=== PATIENT | male | born 1950 | race Caucasian/White ===

== ENCOUNTER 2020-08-04 17:33 | Emergency (ER) | payer MEDICARE ==
--- NOTE | 2020-08-04 17:49 | EDM.PDOC ---
<Carla Jacobs - Last Filed: 08/04/20 17:50> ED HPI GENERAL MEDICAL PROBLEM - General Chief Complaint: Cardiovascular Problem Stated Complaint: MEDICAL VIA [facility] Time Seen by Provider: 08/04/20 17:44 Source of Information: Reports: Patient History Limitations: Reports: No Limitations - History of Present Illness INITIAL COMMENTS - FREE TEXT/NARRATIVE: pt has a history of muscular dystrophy. He is wheel chair bound. He was sitting outside and he suddenly developed a flutterin his chest. When EMS arrived this fluttering had moved to chest pain. He thinks he had chest pain for about 1/2 hour. He states he refuses to take asa. He has had previous heart attacks. He hasd not had a rapid rhythm during this time. Onset: Today, Sudden Duration: Hour(s): Location: Reports: Chest, Other ( this moved from fluttering to chest pain. He is feeling good at this time. He does not have pain. ) Associated Symptoms: Reports: Chest Pain, Shortness of Breath Chest Pain Score (Numeric/FACES): 7 - Related Data Allergies Allergy/AdvReac Type Severity Reaction Status Date / Time Sulfa (Sulfonamide Allergy Cannot Verified 08/04/20 19:10 Antibiotics) Remember Home Meds: Home Meds Cetirizine HCl [Zyrtec] 10 mg PO DAILY 08/04/20 [History] Cimetidine 300 mg PO BEDTIME 08/04/20 [History] Clopidogrel [Plavix] 75 mg PO DAILY 08/04/20 [History] Gabapentin [Neurontin] 2 tab PO TID 08/04/20 [History] Metoprolol Tartrate 25 mg PO BID 08/04/20 [History] Pantoprazole Sodium [Protonix] 40 mg PO ACBREAKFAST 08/04/20 [History] atorvaSTATin Calcium [Lipitor] 20 mg PO BEDTIME 08/04/20 [History] lisinopriL [Lisinopril] 1 tab PO DAILY 08/04/20 [History] ED ROS GENERAL - Review of Systems Review Of Systems: See Below Constitutional: Reports: No Symptoms HEENT: Reports: No Symptoms Respiratory: Reports: Shortness of Breath Cardiovascular: Reports: Chest Pain Endocrine: Reports: No Symptoms GI/Abdominal: Reports: No Symptoms : Reports: No Symptoms Musculoskeletal: Reports: No Symptoms Skin: Reports: No Symptoms ED EXAM, GENERAL - Physical Exam Exam: See Below Free Text/Narrative:: on arrival pt states that he has very little pain at this point. He did develop a fluttery sensation in the chest and then this moved to pain. He was not given any meds in the ambulance. He has had previous MIs Exam Limited By: No Limitations General Appearance: Alert, No Apparent Distress, Anxious, Other (pt was comfortable on arrival and he refused asa. ) Ears: Normal TMs Nose: Normal Inspection Throat/Mouth: Normal Inspection Head: Atraumatic Neck: Normal Inspection Respiratory/Chest: No Respiratory Distress Cardiovascular: Regular Rate, Rhythm GI/Abdominal: Soft, Non-Tender (Male) Exam: Deferred Rectal (Males) Exam: Deferred Back Exam: Normal Inspection Extremities: Other (pt has uscular dystrophy and he walks very little. ) Neurological: Alert, Oriented Psychiatric: Anxious Departure - Departure Disposition: Home, Self-Care 01 Clinical Impression: Angina at rest Instructions: Angina, [id number] Referrals: PCP,None [Primary Care Provider] - Forms: ED Department Discharge Care Plan Goals: Continue your current medications, and use nitroglycerin if chest pain recurs. Consider returning if chest pain is persistent despite treatment. Sepsis Event Note (ED) - Evaluation Sepsis Screening Result: No Definite Risk <Carlo Silva - Last Filed: 08/04/20 21:11> Course - Vital Signs Last Recorded V/S: Last Vital Signs Temp 97.9 F 08/04/20 17:34 Pulse 69 08/04/20 17:34 Resp 18 08/04/20 17:34 BP 132/84 08/04/20 17:34 Pulse Ox 95 08/04/20 17:34 - Orders/Labs/Meds Orders: Active Orders 24 hr Category Date Time Status Chest 1V Frontal [CR] Stat Exams 08/04/20 18:04 Taken EKG 12 Lead [EK] Routine Ther 08/04/20 17:34 Ordered Labs: Laboratory Tests 08/04/20 08/04/20 08/04/20 Range/Units 17:45 17:45 17:45 WBC 8.8 (4.5-11.0) K/uL RBC 4.44 (4.30-5.90) M/uL Hgb 13.4 (12.0-15.0) g/dL Hct 41.5 (40.0-54.0) % MCV 94 (80-98) fL MCH 30 (27-31) pg MCHC 32 (32-36) % Plt Count 206 (150-400) K/uL Neut % (Auto) 42 (36-66) % Lymph % (Auto) 39 (24-44) % [place] % (Auto) 12 H (2-6) % Eos % (Auto) 6 H (2-4) % Baso % (Auto) 2 H (0-1) % Sodium 142 (140-148) mmol/L Potassium 3.4 L (3.6-5.2) mmol/L Chloride 106 (100-108) mmol/L Carbon Dioxide 25 (21-32) mmol/L Anion Gap 14.4 H (5.0-14.0) mmol/L BUN 14 (7-18) mg/dL Creatinine 2.2 H (0.8-1.3) mg/dL Est Cr Clr Drug Dosing 32.40 mL/min Estimated GFR (MDRD) 30 L (>60) Glucose 115 H (74-106) mg/dL Calcium 8.8 (8.5-10.1) mg/dL Total Bilirubin 0.6 (0.2-1.0) mg/dL AST 23 (15-37) U/L ALT 20 (12-78) U/L Alkaline Phosphatase 82 (46-116) U/L Troponin I < 0.017 (0.000-0.056) ng/mL Total Protein 7.1 (6.4-8.2) g/dL Albumin 3.3 L (3.4-5.0) g/dL Globulin 3.8 H (2.3-3.5) g/dL Albumin/Globulin Ratio 0.9 L (1.2-2.2) - Re-Assessments/Exams Free Text/Narrative Re-Assessment/Exam: 08/04/20 18:57 Patient initially seen and evaluated by Dr. Jacobs. EKG showed no acute findings, troponin was 0 and patient had no symptoms while in the emergency room. He has been told by cardiology that he is not a surgical candidate and needs to be treated medically, however he is moving and could not find his nitroglycerin. 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 Departure - Departure Time of Disposition: 20:03 Sepsis Event Note (ED) - Focused Exam Vital Signs: Vital Signs Temp Pulse Resp BP Pulse Ox 08/04/20 17:34 97.9 F 69 18 132/84 95
--- NOTE | 2020-08-07 09:23 | CR ---
CHEST: Portable 08/04/2020 at 6:28 PM CLINICAL HISTORY:SOB COMPARISON:None FINDINGS: Lungs are emphysematous. The heart size, pulmonary vascularity and hilar structures are normal. No infiltrate effusion or pneumothorax is seen. There are atherosclerotic changes in the aorta. IMPRESSION: No acute cardiopulmonary process. Emphysematous changes
== END 2020-08-04 19:55 | disposition home or self-care (01) ==
LOC: JP.ED 17:33
DX: I20.9 Angina pectoris, unspecified (principal); G71.00 Muscular dystrophy, unspecified; Z88.2 Allergy status to sulfonamides; Z79.02 Long term (current) use of antithrombotics/antiplatelets; Z79.899 Other long term (current) drug therapy
CPT/HCPCS: 36415; 71045; 71045-26; 80053; 84484; 85025; 93005; 99285-25

== ENCOUNTER 2021-02-26 13:49 | Emergency (ER) | payer MEDICARE ==
[2021-02-26] MEDS ORDERED: Acetaminophen 325 MG Tab PO PRN (15:01)
--- NOTE | 2021-02-26 15:04 | EDM.PDOC ---
ED HPI GENERAL MEDICAL PROBLEM - General Chief Complaint: Respiratory Problem Stated Complaint: TROUBLE BREATHING Time Seen by Provider: 02/26/21 15:00 Source of Information: Reports: Patient, RN Notes Reviewed History Limitations: Reports: No Limitations - History of Present Illness INITIAL COMMENTS - FREE TEXT/NARRATIVE: 70-year-old gentleman presents emergency department with a complaint of shortness of breath and body aches with fever, he states his been ill for 2 days, he does have a known history of muscular dystrophy as well he is wheelchair-bound. He has not received his Covid vaccine has declined lungs Pain Score (Numeric/FACES): 3 - Related Data Allergies Allergy/AdvReac Type Severity Reaction Status Date / Time Sulfa (Sulfonamide Allergy Cannot Verified 02/26/21 14:42 Antibiotics) Remember Home Meds: Home Meds Cetirizine HCl [Zyrtec] 10 mg PO DAILY 08/04/20 [History] Cimetidine 300 mg PO BEDTIME 08/04/20 [History] Clopidogrel [Plavix] 75 mg PO DAILY 08/04/20 [History] Gabapentin [Neurontin] 2 tab PO TID 08/04/20 [History] Metoprolol Tartrate 25 mg PO BID 08/04/20 [History] Pantoprazole Sodium [Protonix] 40 mg PO ACBREAKFAST 08/04/20 [History] atorvaSTATin Calcium [Lipitor] 20 mg PO BEDTIME 08/04/20 [History] lisinopriL [Lisinopril] 1 tab PO DAILY 08/04/20 [History] Cefdinir 300 mg PO BID #14 capsule 02/26/21 [Rx] Past Medical History Cardiovascular History: Reports: CAD, Hypertension, NM Respiratory History: Reports: COPD Musculoskeletal History: Reports: Osteoarthritis Neurological History: Reports: Head Trauma, Other (See Below) Other Neuro History: muscular dystrophy - Past Surgical History Head Surgeries/Procedures: Reports: None Cardiovascular Surgical History: Reports: None Neurological Surgical History: Reports: None Musculoskeletal Surgical History: Reports: None Social & Family History - Family History Family Medical History: No Pertinent Family History - Tobacco Use Tobacco Use Status *Q: Current Every Day Tobacco User Years of Tobacco use: 50 Packs/Tins Daily: 1 - Caffeine Use Caffeine Use: Reports: Coffee - Recreational Drug Use Recreational Drug Use: No ED ROS GENERAL - Review of Systems Review Of Systems: See Below Constitutional: Reports: Fever, Chills, Weakness, Other HEENT: Reports: No Symptoms (Body aches) Respiratory: Reports: Shortness of Breath Cardiovascular: Denies: Chest Pain GI/Abdominal: Reports: No Symptoms : Reports: No Symptoms Musculoskeletal: Reports: Muscle Pain ED EXAM, GENERAL - Physical Exam Exam: See Below Exam Limited By: No Limitations General Appearance: Alert, Mild Distress Respiratory/Chest: No Respiratory Distress, Lungs Clear, Normal Breath Sounds, No Accessory Muscle Use, Chest Non-Tender Cardiovascular: Regular Rate, Rhythm, Systolic Murmur GI/Abdominal: Soft, Non-Tender #1 Interpretation EKG Date: 02/26/21 Rhythm: NSR [place]: Normal P-Wave: Present QRS: Normal ST-T: Normal QT: Normal Comparison: No Change Course - Orders/Labs/Meds Orders: Active Orders 24 hr Category Date Time Status EKG Documentation Completion [RC] ASDIRECTED Care 02/26/21 15:02 Active Nurse Communication: Isolation [RC] ASDIRECTED Care 02/26/21 15:02 Active Chest 1V Frontal [CR] Stat Exams 02/26/21 15:02 Taken CULTURE URINE [RM] Urgent Lab 02/26/21 17:22 Ordered Acetaminophen [TylenoL] Med 02/26/21 15:01 Active 650 mg PO Q4H PRN Isolation [COMM] Stat Oth 02/26/21 15:01 Ordered EKG 12 Lead [EK] Stat Ther 02/26/21 15:02 Ordered Medication Orders Acetaminophen (Acetaminophen 325 Mg Tab) 650 mg PO Q4H PRN PRN Reason: Fever Greater Than 101 Last Admin: 02/26/21 15:14 Dose: 650 mg Documented by: HELEN Labs: Laboratory Tests 02/26/21 02/26/21 02/26/21 Range/Units 15:15 15:15 15:15 WBC 15.3 H (4.5-11.0) K/uL RBC 4.71 (4.30-5.90) M/uL Hgb 14.5 (12.0-15.0) g/dL Hct 44.2 (40.0-54.0) % MCV 94 (80-98) fL MCH 31 (27-31) pg MCHC 33 (32-36) % Plt Count 217 (150-400) K/uL Neut % (Auto) 82 H (36-66) % Lymph % (Auto) 8 L (24-44) % [place] % (Auto) 9 H (2-6) % Eos % (Auto) 1 L (2-4) % Baso % (Auto) 0 (0-1) % Sodium 144 (140-148) mmol/L Potassium 4.0 (3.6-5.2) mmol/L Chloride 106 (100-108) mmol/L Carbon Dioxide 25 (21-32) mmol/L Anion Gap 13.4 (5.0-14.0) mmol/L BUN 19 H (7-18) mg/dL Creatinine 2.2 H (0.8-1.3) mg/dL Est Cr Clr Drug Dosing TNP Estimated GFR (MDRD) 30 L (>60) Glucose 119 H (74-106) mg/dL Lactic Acid 1.9 (0.4-2.0) mmol/L Calcium 8.7 (8.5-10.1) mg/dL Total Bilirubin 0.8 (0.2-1.0) mg/dL Direct Bilirubin 0.22 H (0.0-0.2) mg/dL Indirect Bilirubin 0.58 AST 13 L (15-37) U/L ALT 15 (12-78) U/L Alkaline Phosphatase 113 (46-116) U/L Troponin I < 0.017 (0.000-0.056) ng/mL C-Reactive Protein 4.87 H (0.0-0.3) mg/dL Total Protein 7.6 (6.4-8.2) g/dL Albumin 3.2 L (3.4-5.0) g/dL Globulin 4.4 H (2.3-3.5) g/dL Albumin/Globulin Ratio 0.7 L (1.2-2.2) Procalcitonin ng/mL Urine Color (YELLOW) Urine Appearance (CLEAR) Urine pH (5.0-8.0) Ur Specific [place] (1.008-1.030) Urine Protein (NEGATIVE) mg/dL Urine Glucose (UA) (NEGATIVE) mg/dL Urine Ketones (NEGATIVE) mg/dL Urine Occult Blood (NEGATIVE) Urine Nitrite (NEGATIVE) Urine Bilirubin (NEGATIVE) Urine Urobilinogen (0.2-1.0) EU/dL Ur Leukocyte Esterase (NEGATIVE) Urine RBC (0-5) Urine WBC (0-5) Ur Epithelial Cells Amorphous Sediment Urine Bacteria Urine Mucus Urine Other Influenza Type A RNA (NEGATIVE) RSV RNA (INAAT) (NEGATIVE) Influenza Type B RNA (NEGATIVE) SARS-CoV-2 RNA (CARMINE) (NEGATIVE) 02/26/21 02/26/21 02/26/21 Range/Units 15:15 15:44 16:54 WBC (4.5-11.0) K/uL RBC (4.30-5.90) M/uL Hgb (12.0-15.0) g/dL Hct (40.0-54.0) % MCV (80-98) fL MCH (27-31) pg MCHC (32-36) % Plt Count (150-400) K/uL Neut % (Auto) (36-66) % Lymph % (Auto) (24-44) % [place] % (Auto) (2-6) % Eos % (Auto) (2-4) % Baso % (Auto) (0-1) % Sodium (140-148) mmol/L Potassium (3.6-5.2) mmol/L Chloride (100-108) mmol/L Carbon Dioxide (21-32) mmol/L Anion Gap (5.0-14.0) mmol/L BUN (7-18) mg/dL Creatinine (0.8-1.3) mg/dL Est Cr Clr Drug Dosing Estimated GFR (MDRD) (>60) Glucose (74-106) mg/dL Lactic Acid (0.4-2.0) mmol/L Calcium (8.5-10.1) mg/dL Total Bilirubin (0.2-1.0) mg/dL Direct Bilirubin (0.0-0.2) mg/dL Indirect Bilirubin AST (15-37) U/L ALT (12-78) U/L Alkaline Phosphatase (46-116) U/L Troponin I (0.000-0.056) ng/mL C-Reactive Protein (0.0-0.3) mg/dL Total Protein (6.4-8.2) g/dL Albumin (3.4-5.0) g/dL Globulin (2.3-3.5) g/dL Albumin/Globulin Ratio (1.2-2.2) Procalcitonin 0.05 ng/mL Urine Color Yellow (YELLOW) Urine Appearance Turbid A (CLEAR) Urine pH 6.0 (5.0-8.0) Ur Specific [place] 1.025 (1.008-1.030) Urine Protein 100 H (NEGATIVE) mg/dL Urine Glucose (UA) Negative (NEGATIVE) mg/dL Urine Ketones Negative (NEGATIVE) mg/dL Urine Occult Blood Moderate H (NEGATIVE) Urine Nitrite Negative (NEGATIVE) Urine Bilirubin Negative (NEGATIVE) Urine Urobilinogen 2.0 H (0.2-1.0) EU/dL Ur Leukocyte Esterase Large H (NEGATIVE) Urine RBC 0-5 (0-5) Urine WBC Packed H (0-5) Ur Epithelial Cells Not seen Amorphous Sediment Not seen Urine Bacteria Many Urine Mucus Not seen Urine Other Influenza Type A RNA Negative (NEGATIVE) RSV RNA (INAAT) Negative (NEGATIVE) Influenza Type B RNA Negative (NEGATIVE) SARS-CoV-2 RNA (CARMINE) Negative (NEGATIVE) Meds: Medications Generic Name Dose Route Start Last Admin Trade Name Freq PRN Reason Stop Dose Admin Acetaminophen 650 mg 02/26/21 15:01 02/26/21 15:14 Acetaminophen 325 Mg Tab PO 650 mg Q4H PRN Administration Fever Greater Than 101 Discontinued Medications Generic Name Dose Route Start Last Admin Trade Name Freq PRN Reason Stop Dose Admin Ceftriaxone Sodium 1 gm/ 0 gm 02/26/21 17:18 Lidocaine HCl 2.1 ml IM 02/26/21 17:19 ONETIME ONE Departure - Departure Time of Disposition: 17:23 Disposition: Home, Self-Care 01 Condition: Fair Clinical Impression: Urinary tract infection Qualifiers: Urinary tract infection type: acute cystitis Hematuria presence: without hematuria Qualified Code(s): N30.00 - Acute cystitis without hematuria - Discharge Information Prescriptions: Cefdinir 300 mg PO BID #14 capsule Instructions: Urinary Tract Infection, Adult Referrals: Rogelio Sloan MD [Primary Care Provider] - Forms: ED Department Discharge Additional Instructions: Take full course of antibiotics, your medications have been faxed to [facility], please followup with your primary care provider in 5-7 days if not better, please call return to the emergency department with worsening of symptoms. - My Orders Last 24 Hours: My Active Orders 02/26/21 15:01 Acetaminophen [TylenoL] 650 mg PO Q4H PRN Isolation [COMM] Stat 02/26/21 15:02 EKG Documentation Completion [RC] ASDIRECTED Nurse Communication: Isolation [RC] ASDIRECTED Chest 1V Frontal [CR] Stat EKG 12 Lead [EK] Stat 02/26/21 17:22 CULTURE URINE [RM] Urgent - Assessment/Plan Last 24 Hours: My Active Orders 02/26/21 15:01 Acetaminophen [TylenoL] 650 mg PO Q4H PRN Isolation [COMM] Stat 02/26/21 15:02 EKG Documentation Completion [RC] ASDIRECTED Nurse Communication: Isolation [RC] ASDIRECTED Chest 1V Frontal [CR] Stat EKG 12 Lead [EK] Stat 02/26/21 17:22 CULTURE URINE [RM] Urgent Plan: Assessment Acuity = acute Site and laterality = urinary tract infection Etiology = probable bacterial cause Manifestations = dysuria Location of injury = Home Lab values = WBC elevated 15.3 consistent leukocytosis, creatinine elevated 2.2 consistent chronic renal failure stage G4 lactic acid normal 1.9 CRP slightly elevated 4.87 urinalysis reveals packed WBCs consistent with pyuria cultures pending Covid test was negative influenza negative RSV negative Plan I did discuss options with him including hospital admission he declined at this time therefore he is given 1 g Rocephin IM now prescription written for Ceftin 300 mg p.o. twice daily x7 days faxed to [facility] follow-up primary care 5 to 7 days if not better This note was dictated using [employer] voice recognition software please call with any questions on syntax or grammar.
[2021-02-26 16:42] LABS: CORONAVIRUS COVID-19 NAA NEGATIVE (NEGATIVE)
[2021-02-26] MEDS ORDERED: cefTRIAXone 1 GM, Lidocaine 1% 2.1 ML IM ONE ×2 (17:18)
--- NOTE | 2021-02-27 09:21 | CR ---
CHEST: 02/26/2021 at 4:59 PM CLINICAL HISTORY:SOB COMPARISON:July 2020 FINDINGS: Heart and pulmonary vascularity are normal. There are atherosclerotic changes in the aorta.. There is diffuse interstitial prominence which is increased slightly since prior study and may represent some superimposed interstitial edema or infiltrate. Lungs are generally hyperaerated. There are some pleural parenchymal scarring in both apices. There are no effusions IMPRESSION: Underlying COPD There does appear to be a slight interval increase in interstitial lung markings since prior study. Some of this may be technical but some underlying interstitial edema or pneumonitis is not excluded
== END 2021-02-26 18:30 | disposition home or self-care (01) ==
LOC: JP.ED 13:49
DX: N30.00 Acute cystitis without hematuria (principal); I25.10 Atherosclerotic heart disease of native coronary artery without angina pectoris; I10 Essential (primary) hypertension; I25.2 Old myocardial infarction; J44.9 Chronic obstructive pulmonary disease, unspecified; Z72.0 Tobacco use; Z88.2 Allergy status to sulfonamides; Z79.02 Long term (current) use of antithrombotics/antiplatelets; Z79.899 Other long term (current) drug therapy; Z20.822 Contact with and (suspected) exposure to COVID-19
CPT/HCPCS: 0241U; 36415; 71045; 80048; 80076; 81001; 83605; 84145; 84484; 85025; 86140; 87086; 87088; 87186; 93005; 96372; 99284; A9270; J0696

== ENCOUNTER 2021-03-21 22:36 | Emergency (ER) | payer MEDICARE ==
--- NOTE | 2021-03-21 23:15 | EDM.PDOC ---
ED HPI GENERAL MEDICAL PROBLEM - General Chief Complaint: General Stated Complaint: CHEST PAIN WHEN URINATING Time Seen by Provider: 03/21/21 23:00 Source of Information: Reports: Patient, Old Records History Limitations: Reports: No Limitations - History of Present Illness INITIAL COMMENTS - FREE TEXT/NARRATIVE: Michele is a 70-year-old male who is wheelchair-bound due to a muscular dystrophy who presents to the ED for evaluation of shortness of breath and chest pain when he is urinating. Patient reports that his shortness of breath is exacerbated when he goes into his apartment. Further clarification is that his nose becomes congested and he cannot breathe out of his nose when he is in his apartment, however, it clears up when he goes back outside. Patient has been attributing this to the dust in his apartment. 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 The patient states that he has been using his nasal spray, however, he is having difficulty breathing out of his nose. He denies a sore throat. His chest pain is been the same for the last 9 years. 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 He denies any fever, chills, nausea or vomiting, headache or body aches. Chest Pain Score (Numeric/FACES): 8 - Related Data Allergies Allergy/AdvReac Type Severity Reaction Status Date / Time Sulfa (Sulfonamide Allergy Cannot Verified 02/26/21 14:42 Antibiotics) Remember Home Meds: Home Meds Cetirizine HCl [Zyrtec] 10 mg PO DAILY 08/04/20 [History] Cimetidine 300 mg PO BEDTIME 08/04/20 [History] Clopidogrel [Plavix] 75 mg PO DAILY 08/04/20 [History] Gabapentin [Neurontin] 2 tab PO TID 08/04/20 [History] Metoprolol Tartrate 25 mg PO BID 08/04/20 [History] Pantoprazole Sodium [Protonix] 40 mg PO ACBREAKFAST 08/04/20 [History] atorvaSTATin Calcium [Lipitor] 20 mg PO BEDTIME 08/04/20 [History] lisinopriL [Lisinopril] 1 tab PO DAILY 08/04/20 [History] Fluticasone Propionate [Flonase] 16 gm .XX BID #1 bottle 03/22/21 [Rx] Past Medical History Cardiovascular History: Reports: CAD, Hypertension, GA Respiratory History: Reports: COPD Musculoskeletal History: Reports: Osteoarthritis Neurological History: Reports: Head Trauma, Other (See Below) Other Neuro History: muscular dystrophy - Infectious Disease History Infectious Disease History: Reports: Chicken Pox, Measles, Mumps - Past Surgical History Head Surgeries/Procedures: Reports: None Cardiovascular Surgical History: Reports: None Neurological Surgical History: Reports: None Musculoskeletal Surgical History: Reports: None Social & Family History - Family History Family Medical History: No Pertinent Family History - Tobacco Use Tobacco Use Status *Q: Current Every Day Tobacco User Years of Tobacco use: 65 Packs/Tins Daily: 1 - Caffeine Use Caffeine Use: Reports: Coffee - Recreational Drug Use Recreational Drug Use: No ED ROS GENERAL - Review of Systems Review Of Systems: See Below Constitutional: Reports: No Symptoms HEENT: Reports: Rhinitis Respiratory: Reports: Shortness of Breath Cardiovascular: Reports: Chest Pain (Distantly for the last 9 years. It seems to worsen when he urinates.) Endocrine: Reports: No Symptoms GI/Abdominal: Reports: No Symptoms : Reports: No Symptoms Musculoskeletal: Reports: No Symptoms Skin: Reports: No Symptoms Neurological: Reports: No Symptoms Psychiatric: Reports: No Symptoms Hematologic/Lymphatic: Reports: No Symptoms Immunologic: Reports: No Symptoms ED EXAM, GENERAL - Physical Exam Exam: See Below Exam Limited By: No Limitations General Appearance: Alert, No Apparent Distress Eye Exam: Bilateral Eye: EOMI, PERRL Nose: Nasal Swelling, Clear Rhinorrhea Throat/Mouth: Normal Inspection, Normal Lips, Normal Oropharynx Head: Atraumatic, Normocephalic. No: Facial Swelling, Facial Tenderness, Sinus Tenderness Neck: Normal Inspection, Supple, Full Range of Motion. No: Lymphadenopathy (R), Lymphadenopathy (L) Respiratory/Chest: No Accessory Muscle Use, Decreased Breath Sounds (Diminished breath sounds in the bases). No: Rales, Rhonchi, Wheezing, Retractions Cardiovascular: Normal Peripheral Pulses, Regular Rate, Rhythm, Systolic Murmur (3 out of 6 holosystolic murmur heard at the apex) Peripheral Pulses: 2+: Radial (L), Radial (R) GI/Abdominal: Normal Bowel Sounds, Soft, Non-Tender Neurological: Alert, Oriented, Normal Cognition Psychiatric: Normal Affect, Normal Mood Skin Exam: Warm, Dry #1 Interpretation EKG Date: 03/21/21 Time: 23:10 Rhythm: NSR Rate (Beats/Min): 99 [place]: Normal P-Wave: Present QRS: Normal ST-T: Normal QT: Normal Comparison: No Change EKG Interpretation Comments: Normal sinus rhythm with a rate of 99 bpm. Evidence for an old inferior infarct with Q waves in leads III and aVF as well as an anterior septal infarct with loss of R wave in V1 and V2. Course - Vital Signs Last Recorded V/S: Last Vital Signs Temp 2.6 C L 03/21/21 23:05 Pulse 99 03/21/21 23:05 Resp 17 03/21/21 23:05 BP 159/76 H 03/21/21 23:05 Pulse Ox 95 03/21/21 23:05 - Orders/Labs/Meds Orders: Active Orders 24 hr Category Date Time Status EKG Documentation Completion [RC] ASDIRECTED Care 03/21/21 23:09 Active Chest 2V [CR] Stat Exams 03/21/21 23:09 Ordered UA W/MICROSCOPIC [URIN] Stat Lab 03/21/21 22:54 Ordered Isolation [COMM] Stat Oth 03/21/21 23:10 Ordered EKG 12 Lead [EK] Routine Ther 03/21/21 23:09 Ordered Labs: Laboratory Tests 03/21/21 03/21/21 03/21/21 Range/Units 23:10 23:10 23:10 WBC 12.7 H (4.5-11.0) K/uL RBC 4.71 (4.30-5.90) M/uL Hgb 14.5 (12.0-15.0) g/dL Hct 44.0 (40.0-54.0) % MCV 93 (80-98) fL MCH 31 (27-31) pg MCHC 33 (32-36) % Plt Count 184 (150-400) K/uL Neut % (Auto) 75 H (36-66) % Lymph % (Auto) 12 L (24-44) % [place] % (Auto) 12 H (2-6) % Eos % (Auto) 1 L (2-4) % Baso % (Auto) 0 (0-1) % Sodium 143 (140-148) mmol/L Potassium 3.5 L (3.6-5.2) mmol/L Chloride 105 (100-108) mmol/L Carbon Dioxide 22 (21-32) mmol/L Anion Gap 19.5 H (5.0-14.0) mmol/L BUN 16 (7-18) mg/dL Creatinine 1.8 H (0.8-1.3) mg/dL Est Cr Clr Drug Dosing 38.08 mL/min Estimated GFR (MDRD) 37 L (>60) Glucose 124 H (74-106) mg/dL Calcium 9.5 (8.5-10.1) mg/dL Total Bilirubin 1.2 H (0.2-1.0) mg/dL AST 14 L (15-37) U/L ALT 17 (12-78) U/L Alkaline Phosphatase 116 (46-116) U/L Troponin I < 0.017 (0.000-0.056) ng/mL C-Reactive Protein 11.68 H (0.0-0.3) mg/dL Total Protein 7.8 (6.4-8.2) g/dL Albumin 3.1 L (3.4-5.0) g/dL Globulin 4.7 H (2.3-3.5) g/dL Albumin/Globulin Ratio 0.7 L (1.2-2.2) Influenza Type A RNA (NEGATIVE) RSV RNA (INAAT) (NEGATIVE) Influenza Type B RNA (NEGATIVE) SARS-CoV-2 RNA (CRAMINE) (NEGATIVE) 03/21/21 Range/Units 23:10 WBC (4.5-11.0) K/uL RBC (4.30-5.90) M/uL Hgb (12.0-15.0) g/dL Hct (40.0-54.0) % MCV (80-98) fL MCH (27-31) pg MCHC (32-36) % Plt Count (150-400) K/uL Neut % (Auto) (36-66) % Lymph % (Auto) (24-44) % [place] % (Auto) (2-6) % Eos % (Auto) (2-4) % Baso % (Auto) (0-1) % Sodium (140-148) mmol/L Potassium (3.6-5.2) mmol/L Chloride (100-108) mmol/L Carbon Dioxide (21-32) mmol/L Anion Gap (5.0-14.0) mmol/L BUN (7-18) mg/dL Creatinine (0.8-1.3) mg/dL Est Cr Clr Drug Dosing mL/min Estimated GFR (MDRD) (>60) Glucose (74-106) mg/dL Calcium (8.5-10.1) mg/dL Total Bilirubin (0.2-1.0) mg/dL AST (15-37) U/L ALT (12-78) U/L Alkaline Phosphatase (46-116) U/L Troponin I (0.000-0.056) ng/mL C-Reactive Protein (0.0-0.3) mg/dL Total Protein (6.4-8.2) g/dL Albumin (3.4-5.0) g/dL Globulin (2.3-3.5) g/dL Albumin/Globulin Ratio (1.2-2.2) Influenza Type A RNA Negative (NEGATIVE) RSV RNA (INAAT) Negative (NEGATIVE) Influenza Type B RNA Negative (NEGATIVE) SARS-CoV-2 RNA (CARMINE) Negative (NEGATIVE) - Radiology Interpretation Free Text/Narrative:: I reviewed the two-view chest x-ray. There is no evidence for an acute infiltrate. There is cardiomegaly and a tortuous aorta. This remains unchanged from his previous x-ray dated 02/26/2021. - Re-Assessments/Exams Free Text/Narrative Re-Assessment/Exam: 03/21/21 23:51 I reviewed the labs on Michlee. He has a significant leukocytosis of 12.7 with a left shift 75% neutrophils. He has a significant creatinine at 1.8 which is actually improved from his previous of 2.2. His C-reactive protein is significantly elevated at 11.68. His troponin is negative at less than 0.017. His EKG does not show any sign of acute ischemia or infarct. Chest x- ray does not show any acute infiltrates. His exam does show significant rhinitis with swelling of the mucosal membranes and clear discharge. Is likely the nidus for his "shortness of breath" related to going into his apartment. As he is not the most hygienic individual, I can only imagine what his abode resembles. He may benefit from Nasacort nasal spray. We are still awaiting urine for urinalysis. 03/22/21 00:13 Covid 19, RSV, and influenza a and B are negative. 03/22/21 00:40 urinalysis again shows significant pyuria with positive nitrite and packed WBCs per high field. We will put the patient on cephalexin 500 mg twice daily for 7 days. He should follow-up with his primary care provider in 1 week to ensure that he has cleared the infection. Departure - Departure Time of Disposition: 00:42 Disposition: Home, Self-Care 01 Clinical Impression: Hypokalemia, UTI, Urinary tract infectious disease Allergic rhinitis due to allergen Qualifiers: Allergic rhinitis trigger: unspecified Allergic rhinitis seasonality: unspecified Qualified Code(s): J30.9 - Allergic rhinitis, unspecified - Discharge Information Instructions: Urinary Tract Infection, Adult, [id number], Allergic Rhinitis, Adult, Hypokalemia Referrals: Rogelio Sloan MD [Primary Care Provider] - Forms: ED Department Discharge Care Plan Goals: You again have a severe urinary tract infection. We are putting you on cephalexin 500 mg twice daily for 7 days to clear this infection. Please make sure you take all the antibiotic as prescribed. I am also sending you home with a prescription for Flonase to help with your nose. 2 squirts in each nostril twice daily should sufficiently reduce the inflammation in your nose and allow you to breathe more easily. Follow-up with your primary care provider in 1 week for recheck of your urine to ensure that we have cleared the infection. Sepsis Event Note (ED) - Evaluation Sepsis Screening Result: Possible Sepsis Risk - Focused Exam Vital Signs: Vital Signs Temp Pulse Resp BP Pulse Ox 03/21/21 23:05 2.6 C L 99 17 159/76 H 95 - Problem List & Annotations (1) Allergic rhinitis due to allergen SNOMED Code(s): 83283918 Code(s): J30.9 - ALLERGIC RHINITIS, UNSPECIFIED Status: Acute Priority: Medium Current Visit: Yes Qualifiers: Allergic rhinitis trigger: unspecified Allergic rhinitis seasonality: unspecified Qualified Code(s): J30.9 - Allergic rhinitis, unspecified (2) Hypokalemia SNOMED Code(s): 27795437 Code(s): E87.6 - HYPOKALEMIA Status: Acute Priority: Medium Current Visit: Yes (3) UTI, Urinary tract infectious disease SNOMED Code(s): 10413092 Code(s): N39.0 - URINARY TRACT INFECTION, SITE NOT SPECIFIED Status: Acute Priority: Medium Current Visit: Yes - Problem List Review Problem List Initiated/Reviewed/Updated: Yes - My Orders Last 24 Hours: My Active Orders 03/21/21 22:54 UA W/MICROSCOPIC [URIN] Stat 03/21/21 23:09 EKG Documentation Completion [RC] ASDIRECTED Chest 2V [CR] Stat EKG 12 Lead [EK] Routine 03/21/21 23:10 Isolation [COMM] Stat - Assessment/Plan Last 24 Hours: My Active Orders 03/21/21 22:54 UA W/MICROSCOPIC [URIN] Stat 03/21/21 23:09 EKG Documentation Completion [RC] ASDIRECTED Chest 2V [CR] Stat EKG 12 Lead [EK] Routine 03/21/21 23:10 Isolation [COMM] Stat
[2021-03-21 23:58] LABS: CORONAVIRUS COVID-19 NAA NEGATIVE (NEGATIVE)
--- NOTE | 2021-03-22 08:57 | CR ---
CHEST: 2 view CLINICAL HISTORY:Chest pain COMPARISON:02/26/2021 FINDINGS: Heart size and pulmonary vascularity are normal. There are atherosclerotic changes in the aorta.. Lungs are hyperaerated. There is some generalized interstitial prominence similar to prior studies. Impression: No acute cardiopulmonary process COPD
== END 2021-03-22 00:50 | disposition home or self-care (01) ==
LOC: JP.ED 22:36
DX: J30.9 Allergic rhinitis, unspecified (principal); E87.6 Hypokalemia; N39.0 Urinary tract infection, site not specified; I25.10 Atherosclerotic heart disease of native coronary artery without angina pectoris; I10 Essential (primary) hypertension; I25.2 Old myocardial infarction; J44.9 Chronic obstructive pulmonary disease, unspecified; Z79.02 Long term (current) use of antithrombotics/antiplatelets; Z79.899 Other long term (current) drug therapy; Z72.0 Tobacco use; Z20.822 Contact with and (suspected) exposure to COVID-19; Z88.2 Allergy status to sulfonamides
CPT/HCPCS: 0241U; 36415; 71046; 71046-26; 80053; 81001; 84484; 85025; 86140; 93005; 99284; 99285-25

== ENCOUNTER 2021-04-09 12:21 | Inpatient (IN) | payer MEDICARE ==
[2021-04-09] MEDS ORDERED: Sodium Chloride 0.9% 10 ML Syringe FLUSH PRN ×2 (12:52→18:01)
[2021-04-09] MEDS ORDERED: Morphine 4 MG/ML Syringe IVPUSH PRN (12:52)
[2021-04-09] MEDS: Nitroglycerin 0.4 MG Tab.SL SL PRN ×2 (12:58→13:40)
--- NOTE | 2021-04-09 13:08 | EDM.PDOC ---
ED HPI GENERAL MEDICAL PROBLEM - General Chief Complaint: Chest Pain Stated Complaint: [facility] Time Seen by Provider: 04/09/21 12:49 Source of Information: Reports: Patient, RN Notes Reviewed History Limitations: Reports: No Limitations - History of Present Illness INITIAL COMMENTS - FREE TEXT/NARRATIVE: 70-year-old gentleman presents emergency department day complaint of chest pain, he arrives via EMS services, states the chest pain just started earlier today he rates it 8 out of 10 did receive nitro in the ambulance he states it provided little relief. He has no shortness of breath no nausea no diaphoresis. Does have a history of coronary artery disease with stenting - Related Data Allergies Allergy/AdvReac Type Severity Reaction Status Date / Time Sulfa (Sulfonamide Allergy Cannot Verified 04/09/21 12:41 Antibiotics) Remember Home Meds: Home Meds Cetirizine HCl [Zyrtec] 10 mg PO DAILY 08/04/20 [History] Cimetidine 300 mg PO BEDTIME 08/04/20 [History] Clopidogrel [Plavix] 75 mg PO DAILY 08/04/20 [History] Gabapentin [Neurontin] 2 tab PO TID 08/04/20 [History] Metoprolol Tartrate 25 mg PO BID 08/04/20 [History] Pantoprazole Sodium [Protonix] 40 mg PO ACBREAKFAST 08/04/20 [History] atorvaSTATin Calcium [Lipitor] 20 mg PO BEDTIME 08/04/20 [History] lisinopriL [Lisinopril] 1 tab PO DAILY 08/04/20 [History] Fluticasone Propionate [Flonase] 16 gm .XX BID #1 bottle 03/22/21 [Rx] Past Medical History Cardiovascular History: Reports: CAD, High Cholesterol, Hypertension, [place] Respiratory History: Reports: COPD Genitourinary History: Reports: Prostate Disorder Musculoskeletal History: Reports: Osteoarthritis Neurological History: Reports: Head Trauma, Other (See Below) Other Neuro History: muscular dystrophy - Infectious Disease History Infectious Disease History: Reports: Chicken Pox, Measles, Mumps - Past Surgical History Head Surgeries/Procedures: Reports: None Cardiovascular Surgical History: Reports: None Neurological Surgical History: Reports: None Musculoskeletal Surgical History: Reports: None Social & Family History - Family History Family Medical History: No Pertinent Family History - Tobacco Use Tobacco Use Status *Q: Current Every Day Tobacco User Years of Tobacco use: 60 Packs/Tins Daily: 1 - Caffeine Use Caffeine Use: Reports: Coffee - Recreational Drug Use Recreational Drug Use: No ED ROS GENERAL - Review of Systems Review Of Systems: See Below Constitutional: Reports: No Symptoms HEENT: Reports: No Symptoms Respiratory: Reports: No Symptoms Cardiovascular: Reports: Chest Pain GI/Abdominal: Reports: No Symptoms ED EXAM, GENERAL - Physical Exam Exam: See Below Exam Limited By: No Limitations General Appearance: Alert, WD/WN, No Apparent Distress Respiratory/Chest: No Respiratory Distress, Lungs Clear, Normal Breath Sounds, No Accessory Muscle Use, Chest Non-Tender Cardiovascular: Regular Rate, Rhythm, Systolic Murmur GI/Abdominal: Soft, Non-Tender Extremities: Pedal Edema #1 Interpretation EKG Date: 04/09/21 Time: 12:31 Rhythm: NSR [place]: Normal P-Wave: Present QRS: Normal ST-T: Depressed QT: Normal Comparison: Change From Previous EKG #2 Interpretation EKG Date: 04/09/21 Time: 15:09 Rhythm: NSR [place]: Normal P-Wave: Present QRS: Normal ST-T: Normal QT: Normal Comparison: Change From Previous EKG EKG Interpretation Comments: ST depressions now improved Course - Vital Signs Last Recorded V/S: Last Vital Signs Temp 98.5 F 04/09/21 15:20 Pulse 101 H 04/09/21 15:20 Resp 18 04/09/21 15:20 BP 128/84 04/09/21 15:20 Pulse Ox 95 04/09/21 15:20 - Orders/Labs/Meds Orders: Active Orders 24 hr Category Date Time Status Cardiac Monitoring [RC] .As Directed Care 04/09/21 12:53 Active EKG Documentation Completion [RC] ASDIRECTED Care 04/09/21 12:55 Active EKG Documentation Completion [RC] ASDIRECTED Care 04/09/21 14:52 Active Peripheral IV Care [RC] . DIRECTED Care 04/09/21 12:55 Active COVID-19/FLU A+B/RSV [MOLEC] Urgent Lab 04/09/21 14:00 Ordered CULTURE BLOOD [BC] Urgent Lab 04/09/21 14:10 Received CULTURE BLOOD [BC] Urgent Lab 04/09/21 14:16 Received CULTURE URINE [RM] Urgent Lab 04/09/21 15:30 Received Morphine Med 04/09/21 12:52 Active 4 mg IVPUSH Q10M PRN Nitroglycerin [Nitrostat] Med 04/09/21 12:52 Active 0.4 mg SL Q5M PRN Sodium Chloride 0.9% [Saline Flush] Med 04/09/21 12:52 Active 10 ml FLUSH ASDIRECTED PRN Blood Culture x2 Reflex Set [OM.PC] Urgent Oth 04/09/21 13:55 Ordered Isolation [COMM] Stat Ot 04/09/21 14:00 Ordered Peripheral IV Insertion Adult [OM.PC] Stat Oth 04/09/21 12:52 Ordered Saline Lock Insert [OM.PC] Stat Oth 04/09/21 12:52 Ordered EKG 12 Lead [EK] Stat Ther 04/09/21 12:54 Ordered EKG 12 Lead [EK] Stat Ther 04/09/21 14:52 Ordered Medication Orders Morphine Sulfate (Morphine 4 Mg/Ml Syringe) 4 mg IVPUSH Q10M PRN PRN Reason: Chest Pain Stop: 04/10/21 12:53 Last Admin: 04/09/21 12:59 Dose: 4 mg Documented by: [id number] Nitroglycerin (Nitroglycerin 0.4 Mg Tab.Sl) 0.4 mg SL Q5M PRN PRN Reason: Chest Pain Stop: 04/10/21 12:53 Last Admin: 04/09/21 13:40 Dose: 0.4 mg Documented by: [email or web address] Admin: 04/09/21 12:58 Dose: 0.4 mg Documented by: [id number] Sodium Chloride (Sodium Chloride 0.9% 10 Ml Syringe) 10 ml FLUSH ASDIRECTED PRN PRN Reason: Keep Vein Open Last Admin: 04/09/21 13:02 Dose: 10 ml Documented by: [email or web address] Labs: Laboratory Tests 04/09/21 04/09/21 04/09/21 Range/Units 13:06 13:06 13:06 WBC 21.2 H (4.5-11.0) K/uL RBC 4.71 (4.30-5.90) M/uL Hgb 14.1 (12.0-15.0) g/dL Hct 43.9 (40.0-54.0) % MCV 93 (80-98) fL MCH 30 (27-31) pg MCHC 32 (32-36) % Plt Count 274 (150-400) K/uL Neut % (Auto) 86.9 H (36-66) % Lymph % (Auto) 6.1 L (24-44) % [place] % (Auto) 6.6 H (2-6) % Eos % (Auto) 0.2 L (2-4) % Baso % (Auto) 0.2 (0-1) % D-Dimer, Quantitative (0.0-500.0) ng/mL Sodium 139 L (140-148) mmol/L Potassium 3.7 (3.6-5.2) mmol/L Chloride 102 (100-108) mmol/L Carbon Dioxide 23 (21-32) mmol/L Anion Gap 17.7 H (5.0-14.0) mmol/L BUN 14 (7-18) mg/dL Creatinine 2.0 H (0.8-1.3) mg/dL Est Cr Clr Drug Dosing 3.43 mL/min Estimated GFR (MDRD) 33 L (>60) Glucose 114 H (74-106) mg/dL Lactic Acid 1.3 (0.4-2.0) mmol/L Calcium 8.8 (8.5-10.1) mg/dL Total Bilirubin 1.2 H (0.2-1.0) mg/dL AST 16 (15-37) U/L ALT 19 (12-78) U/L Alkaline Phosphatase 114 (46-116) U/L Troponin I < 0.017 (0.000-0.056) ng/mL Total Protein 7.9 (6.4-8.2) g/dL Albumin 3.2 L (3.4-5.0) g/dL Globulin 4.7 H (2.3-3.5) g/dL Albumin/Globulin Ratio 0.7 L (1.2-2.2) Procalcitonin ng/mL Urine Color (YELLOW) Urine Appearance (CLEAR) Urine pH (5.0-8.0) Ur Specific [place] (1.008-1.030) Urine Protein (NEGATIVE) mg/dL Urine Glucose (UA) (NEGATIVE) mg/dL Urine Ketones (NEGATIVE) mg/dL Urine Occult Blood (NEGATIVE) Urine Nitrite (NEGATIVE) Urine Bilirubin (NEGATIVE) Urine Urobilinogen (0.2-1.0) EU/dL Ur Leukocyte Esterase (NEGATIVE) Urine RBC (0-5) Urine WBC (0-5) Ur Epithelial Cells Amorphous Sediment Urine Bacteria Urine Mucus 04/09/21 04/09/21 04/09/21 Range/Units 13:43 14:00 14:52 WBC (4.5-11.0) K/uL RBC (4.30-5.90) M/uL Hgb (12.0-15.0) g/dL Hct (40.0-54.0) % MCV (80-98) fL MCH (27-31) pg MCHC (32-36) % Plt Count (150-400) K/uL Neut % (Auto) (36-66) % Lymph % (Auto) (24-44) % [place] % (Auto) (2-6) % Eos % (Auto) (2-4) % Baso % (Auto) (0-1) % D-Dimer, Quantitative 3045.22 H (0.0-500.0) ng/mL Sodium (140-148) mmol/L Potassium (3.6-5.2) mmol/L Chloride (100-108) mmol/L Carbon Dioxide (21-32) mmol/L Anion Gap (5.0-14.0) mmol/L BUN (7-18) mg/dL Creatinine (0.8-1.3) mg/dL Est Cr Clr Drug Dosing mL/min Estimated GFR (MDRD) (>60) Glucose (74-106) mg/dL Lactic Acid (0.4-2.0) mmol/L Calcium (8.5-10.1) mg/dL Total Bilirubin (0.2-1.0) mg/dL AST (15-37) U/L ALT (12-78) U/L Alkaline Phosphatase (46-116) U/L Troponin I < 0.017 (0.000-0.056) ng/mL Total Protein (6.4-8.2) g/dL Albumin (3.4-5.0) g/dL Globulin (2.3-3.5) g/dL Albumin/Globulin Ratio (1.2-2.2) Procalcitonin 0.08 ng/mL Urine Color (YELLOW) Urine Appearance (CLEAR) Urine pH (5.0-8.0) Ur Specific [place] (1.008-1.030) Urine Protein (NEGATIVE) mg/dL Urine Glucose (UA) (NEGATIVE) mg/dL Urine Ketones (NEGATIVE) mg/dL Urine Occult Blood (NEGATIVE) Urine Nitrite (NEGATIVE) Urine Bilirubin (NEGATIVE) Urine Urobilinogen (0.2-1.0) EU/dL Ur Leukocyte Esterase (NEGATIVE) Urine RBC (0-5) Urine WBC (0-5) Ur Epithelial Cells Amorphous Sediment Urine Bacteria Urine Mucus 04/09/21 Range/Units 15:19 WBC (4.5-11.0) K/uL RBC (4.30-5.90) M/uL Hgb (12.0-15.0) g/dL Hct (40.0-54.0) % MCV (80-98) fL MCH (27-31) pg MCHC (32-36) % Plt Count (150-400) K/uL Neut % (Auto) (36-66) % Lymph % (Auto) (24-44) % [place] % (Auto) (2-6) % Eos % (Auto) (2-4) % Baso % (Auto) (0-1) % D-Dimer, Quantitative (0.0-500.0) ng/mL Sodium (140-148) mmol/L Potassium (3.6-5.2) mmol/L Chloride (100-108) mmol/L Carbon Dioxide (21-32) mmol/L Anion Gap (5.0-14.0) mmol/L BUN (7-18) mg/dL Creatinine (0.8-1.3) mg/dL Est Cr Clr Drug Dosing mL/min Estimated GFR (MDRD) (>60) Glucose (74-106) mg/dL Lactic Acid (0.4-2.0) mmol/L Calcium (8.5-10.1) mg/dL Total Bilirubin (0.2-1.0) mg/dL AST (15-37) U/L ALT (12-78) U/L Alkaline Phosphatase (46-116) U/L Troponin I (0.000-0.056) ng/mL Total Protein (6.4-8.2) g/dL Albumin (3.4-5.0) g/dL Globulin (2.3-3.5) g/dL Albumin/Globulin Ratio (1.2-2.2) Procalcitonin ng/mL Urine Color Yellow (YELLOW) Urine Appearance Cloudy A (CLEAR) Urine pH 6.0 (5.0-8.0) Ur Specific [place] 1.025 (1.008-1.030) Urine Protein 100 H (NEGATIVE) mg/dL Urine Glucose (UA) Normal (NEGATIVE) mg/dL Urine Ketones Trace H (NEGATIVE) mg/dL Urine Occult Blood Large H (NEGATIVE) Urine Nitrite Positive H (NEGATIVE) Urine Bilirubin Negative (NEGATIVE) Urine Urobilinogen 0.2 (0.2-1.0) EU/dL Ur Leukocyte Esterase Large (NEGATIVE) Urine RBC 10-20 H (0-5) Urine WBC Packed H (0-5) Ur Epithelial Cells Few Amorphous Sediment Not seen Urine Bacteria Many Urine Mucus Not seen Meds: Medications Generic Name Dose Route Start Last Admin Trade Name Rayo PRN Reason Stop Dose Admin Morphine Sulfate 4 mg 04/09/21 12:52 04/09/21 12:59 Morphine 4 Mg/Ml Syringe IVPUSH 04/10/21 12:53 4 mg Q10M PRN Administration Chest Pain Nitroglycerin 0.4 mg 04/09/21 12:52 04/09/21 13:40 Nitroglycerin 0.4 Mg Tab.Sl SL 04/10/21 12:53 0.4 mg Q5M PRN Administration Chest Pain Sodium Chloride 10 ml 04/09/21 12:52 04/09/21 13:02 Sodium Chloride 0.9% 10 Ml Syringe FLUSH 10 ml ASDIRECTED PRN Administration Keep Vein Open Discontinued Medications Generic Name Dose Route Start Last Admin Trade Name Freq PRN Reason Stop Dose Admin Ceftriaxone Sodium 1 gm/ 50 mls @ 100 mls/hr 04/09/21 15:47 04/09/21 16:43 Sodium Chloride IV 04/09/21 16:16 100 mls/hr ONETIME ONE Administration Departure - Departure Time of Disposition: 17:06 Disposition: Admitted As Inpatient 64 Condition: Fair Clinical Impression: Urinary tract infection Qualifiers: Urinary tract infection type: acute cystitis Hematuria presence: without hematuria Qualified Code(s): N30.00 - Acute cystitis without hematuria Referrals: PCP,None [Primary Care Provider] - Forms: ED Department Discharge Sepsis Event Note (ED) - Evaluation Sepsis Screening Result: Possible Sepsis Risk - Focused Exam Vital Signs: Vital Signs Temp Pulse Resp BP BP Pulse Ox 04/09/21 15:20 98.5 F 101 H 18 128/84 95 04/09/21 13:40 123/78 04/09/21 13:38 100.3 F 113 H 21 H 123/78 95 04/09/21 13:08 99.5 F 116 H 20 91/55 L 90 L 04/09/21 12:58 110/77 04/09/21 12:33 100 F 112 H 20 105/68 91 L - My Orders Last 24 Hours: My Active Orders 04/09/21 12:52 Morphine 4 mg IVPUSH Q10M PRN Nitroglycerin [Nitrostat] 0.4 mg SL Q5M PRN Sodium Chloride 0.9% [Saline Flush] 10 ml FLUSH ASDIRECTED PRN Peripheral IV Insertion Adult [OM.PC] Stat Saline Lock Insert [OM.PC] Stat 04/09/21 12:53 Cardiac Monitoring [RC] .As Directed 04/09/21 12:54 EKG 12 Lead [EK] Stat 04/09/21 12:55 EKG Documentation Completion [RC] ASDIRECTED Peripheral IV Care [RC] . DIRECTED 04/09/21 13:55 Blood Culture x2 Reflex Set [OM.PC] Urgent 04/09/21 14:00 COVID-19/FLU A+B/RSV [MOLEC] Urgent Isolation [COMM] Stat 04/09/21 14:10 CULTURE BLOOD [BC] Urgent 04/09/21 14:16 CULTURE BLOOD [BC] Urgent 04/09/21 14:52 EKG Documentation Completion [RC] ASDIRECTED EKG 12 Lead [EK] Stat 04/09/21 15:30 CULTURE URINE [RM] Urgent - Assessment/Plan Last 24 Hours: My Active Orders 04/09/21 12:52 Morphine 4 mg IVPUSH Q10M PRN Nitroglycerin [Nitrostat] 0.4 mg SL Q5M PRN Sodium Chloride 0.9% [Saline Flush] 10 ml FLUSH ASDIRECTED PRN Peripheral IV Insertion Adult [OM.PC] Stat Saline Lock Insert [OM.PC] Stat 04/09/21 12:53 Cardiac Monitoring [RC] .As Directed 04/09/21 12:54 EKG 12 Lead [EK] Stat 04/09/21 12:55 EKG Documentation Completion [RC] ASDIRECTED Peripheral IV Care [RC] . DIRECTED 04/09/21 13:55 Blood Culture x2 Reflex Set [OM.PC] Urgent 04/09/21 14:00 COVID-19/FLU A+B/RSV [MOLEC] Urgent Isolation [COMM] Stat 04/09/21 14:10 CULTURE BLOOD [BC] Urgent 04/09/21 14:16 CULTURE BLOOD [BC] Urgent 04/09/21 14:52 EKG Documentation Completion [RC] ASDIRECTED EKG 12 Lead [EK] Stat 04/09/21 15:30 CULTURE URINE [RM] Urgent Plan: Assessment Acuity = acute Site and laterality = urinary tract infection Etiology = probable bacterial cause Manifestations = dysuria Location of injury = Home Lab values = WBC elevated 21.2 consistent leukocytosis D-dimer elevated 3045 uncertain significance creatinine elevated 2.0 consistent chronic renal failure stage G3 B total bilirubin elevated 1.2 consistent with hyperbilirubinemia troponin was negative x2 procalcitonin 0.08 urinalysis positive nitrates packed WBCs consistent with pyuria CT scan of the chest shows no acute process however he does have an enlarged ascending aortic aneurysm at 4.2 cm Plan Call discussed case hospitalist on-call at 1700 kindly agreed to come evaluate the patient emergency department for admission blood cultures have been drawn antibiotics of Rocephin initiated This note was dictated using [employer] voice recognition software please call with any questions on syntax or grammar.
--- NOTE | 2021-04-09 13:47 | CR ---
CHEST: Portable 04/09/2021 at 1:43 PM CLINICAL HISTORY:Chest pain COMPARISON:03/21/2021 FINDINGS: Heart is mildly enlarged. Pulmonary vascularity is normal. There are atherosclerotic changes in the aorta. Lungs are hyperaerated but clear. There is mild chronic interstitial prominence. Impression: Mild chronic lung changes similar to prior study No acute cardiac pulmonary process.
[2021-04-09] MEDS ORDERED: cefTRIAXone 1 GM in Sodium Chloride 0.9% 50 ML IV ONE (15:47)
--- NOTE | 2021-04-09 16:30 | CRLCT ---
INDICATION: Hypoxia. TECHNIQUE: Volumetric helical scanning of the thorax was performed without IV contrast material. Coronal and sagittal reconstructions were obtained. COMPARISON: Today`s chest x-ray. FINDINGS: Emphysema and mild pulmonary fibrosis is noted. No acute infiltrate, airway abnormality or pleural effusion is demonstrated. No mediastinal or hilar lymphadenopathy is evident. The heart size is normal. Calcified coronary arterial plaque is demonstrated. Fusiform enlargement of the ascending aorta to 4.2 cm in diameter is demonstrated Images of the upper abdomen are unremarkable except for several liver cysts. IMPRESSION: 1. Emphysema and mild pulmonary fibrosis. No acute infiltrate. 2. Coronary artery disease. 3. Fusiform enlargement of the ascending aorta to 4.2 cm in diameter. 4. Several liver cysts. Please note that all CT scans at this facility use dose modulation, iterative reconstruction, and/or weight-based dosing when appropriate to reduce radiation dose to as low as reasonably achievable. Dictated by Keenan Light MD @ 04/09/2021 4:28:[address] Keenan Light @ Apr 09 2021 4:28PM
--- NOTE | 2021-04-09 17:39 | PCM.HP.2 ---
H&P History of Present Illness - General Date of Service: 04/09/21 Admit Problem/Dx: Admission Diagnosis/Problem Admission Diagnosis/Problem UTI, Urinary tract infectious disease Source of Information: Patient, Provider, RN Notes Reviewed History Limitations: Reports: No Limitations - History of Present Illness Initial Comments - Free Text/Narative: is a 70-year-old gentleman who was admitted through the emergency department with chest pain and urinary tract infection. He has a known history of coronary artery disease but is not had chest pain for some time. This morning reports symptoms of chest pain in the central chest described as an intense ache that did not radiate. This pain was similar to what he is experienced in the past with his angina. Initial EKG did show ST segment changes that had been not present on previous EKG. Pain resolved and has not recurred while he has been in the emergency department. 2 troponin levels have been obtained and both are within normal range. White blood cell count was noted to be elevated and he was mildly tachycardic, felt to be secondary to dehydration. Lactic acid level is within normal range. Urinalysis shows evidence of urinary tract infection and he has had difficulty with prostatic enlargement. Blood cultures as well as urine cultures have been obtained and he was started on IV ceftriaxone in the emergency department. D-dimer was also found to be significantly elevated, CT angiogram of the chest could not be obtained because of his underlying renal insufficiency. CT scan of the chest without contrast was obtained and did show evidence of COPD but no other significant abnormalities. - Related Data Allergies/Adverse Reactions: Allergies Allergy/AdvReac Type Severity Reaction Status Date / Time Sulfa (Sulfonamide Allergy Cannot Verified 04/09/21 12:41 Antibiotics) Remember Home Medications: Home Meds Cetirizine HCl [Zyrtec] 10 mg PO DAILY 08/04/20 [History] Cimetidine 300 mg PO BEDTIME 08/04/20 [History] Clopidogrel [Plavix] 75 mg PO DAILY 08/04/20 [History] Gabapentin [Neurontin] 2 tab PO TID 08/04/20 [History] Metoprolol Tartrate 25 mg PO BID 08/04/20 [History] Pantoprazole Sodium [Protonix] 40 mg PO ACBREAKFAST 08/04/20 [History] atorvaSTATin Calcium [Lipitor] 20 mg PO BEDTIME 08/04/20 [History] lisinopriL [Lisinopril] 1 tab PO DAILY 08/04/20 [History] Fluticasone Propionate [Flonase] 16 gm .XX BID #1 bottle 03/22/21 [Rx] Past Medical History Cardiovascular History: Reports: CAD, High Cholesterol, Hypertension, PA Respiratory History: Reports: COPD Genitourinary History: Reports: Prostate Disorder Musculoskeletal History: Reports: Osteoarthritis Neurological History: Reports: Head Trauma, Other (See Below) Other Neuro History: muscular dystrophy - Infectious Disease History Infectious Disease History: Reports: Chicken Pox, Measles, Mumps - Past Surgical History Head Surgeries/Procedures: Reports: None Cardiovascular Surgical History: Reports: None Neurological Surgical History: Reports: None Musculoskeletal Surgical History: Reports: None Social & Family History - Family History Family Medical History: No Pertinent Family History - Tobacco Use Tobacco Use Status *Q: Current Every Day Tobacco User Years of Tobacco use: 60 Packs/Tins Daily: 1 - Caffeine Use Caffeine Use: Reports: Coffee - Recreational Drug Use Recreational Drug Use: No H&P Review of Systems - Review of Systems: Review Of Systems: See Below General: Reports: Fever, Chills, Malaise, Weakness. Denies: Diaphoresis HEENT: Reports: No Symptoms Pulmonary: Reports: Shortness of Breath. Denies: Wheezing, Pleuritic Chest Pain, Cough, Sputum, Hemoptysis Cardiovascular: Reports: Chest Pain, Dyspnea on Exertion. Denies: Palpitations, Orthopnea, PND, Edema, Lightheadedness Gastrointestinal: Reports: No Symptoms Genitourinary: Reports: Dysuria, Frequency, Retention. Denies: Urgency, Incontinence, Hematuria Musculoskeletal: Reports: No Symptoms Skin: Reports: No Symptoms Psychiatric: Reports: No Symptoms Neurological: Reports: No Symptoms Hematologic/Lymphatic: Reports: No Symptoms Immunologic: Reports: No Symptoms Exam - Exam Exam: See Below - Vital Signs Vital Signs: Last Vital Signs Temp 98.5 F 04/09/21 15:20 Pulse 101 H 04/09/21 15:20 Resp 18 04/09/21 15:20 BP 128/84 04/09/21 15:20 Pulse Ox 95 04/09/21 15:20 Weight: 16 lb - Exam Quality Assessment: Supplemental Oxygen, DVT Prophylaxis General: Alert, Oriented, Cooperative, Moderate Distress HEENT: Conjunctiva Clear, Normal Nasal Septum, Posterior Pharynx Clear, Pupils Equal. No: Hearing Intact, Mucosa Moist & [place] Neck: Supple, Trachea Midline, +2 Carotid Pulse wo Bruit Lungs: Clear to Auscultation, Normal Respiratory Effort, Decreased Breath Sounds. No: Crackles, Rales, Rhonchi, Wheezing Cardiovascular: Regular Rate, Regular Rhythm, Normal S1, Normal S2, Systolic Murmur. No: Diastolic Murmur GI/Abdominal Exam: Soft, Non-Tender, No Organomegaly, No Distention Back Exam: Normal Inspection, Full Range of Motion Extremities: Non-Tender, No Pedal Edema Skin: Warm, Dry, Intact Neurological: Cranial Nerves Intact, Strength Equal Bilateral, Normal Speech, No rmal Tone, Sensation Intact. No: Focal Deficit Neuro Extensive - Mental Status: Alert, Oriented x3, Normal Mood/Affect, Normal Cognition, Memory Intact - Patient Data Lab Results Last 24 hrs: Laboratory Results - last 24 hr 04/09/21 04/09/21 04/09/21 Range/Units 13:06 13:06 13:06 WBC 21.2 H (4.5-11.0) K/uL RBC 4.71 (4.30-5.90) M/uL Hgb 14.1 (12.0-15.0) g/dL Hct 43.9 (40.0-54.0) % MCV 93 (80-98) fL MCH 30 (27-31) pg MCHC 32 (32-36) % Plt Count 274 (150-400) K/uL Neut % (Auto) 86.9 H (36-66) % Lymph % (Auto) 6.1 L (24-44) % [place] % (Auto) 6.6 H (2-6) % Eos % (Auto) 0.2 L (2-4) % Baso % (Auto) 0.2 (0-1) % D-Dimer, Quantitative (0.0-500.0) ng/mL Sodium 139 L (140-148) mmol/L Potassium 3.7 (3.6-5.2) mmol/L Chloride 102 (100-108) mmol/L Carbon Dioxide 23 (21-32) mmol/L Anion Gap 17.7 H (5.0-14.0) mmol/L BUN 14 (7-18) mg/dL Creatinine 2.0 H (0.8-1.3) mg/dL Est Cr Clr Drug Dosing 3.43 mL/min Estimated GFR (MDRD) 33 L (>60) Glucose 114 H (74-106) mg/dL Lactic Acid 1.3 (0.4-2.0) mmol/L Calcium 8.8 (8.5-10.1) mg/dL Total Bilirubin 1.2 H (0.2-1.0) mg/dL AST 16 (15-37) U/L ALT 19 (12-78) U/L Alkaline Phosphatase 114 (46-116) U/L Troponin I < 0.017 (0.000-0.056) ng/mL Total Protein 7.9 (6.4-8.2) g/dL Albumin 3.2 L (3.4-5.0) g/dL Globulin 4.7 H (2.3-3.5) g/dL Albumin/Globulin Ratio 0.7 L (1.2-2.2) Procalcitonin ng/mL Urine Color (YELLOW) Urine Appearance (CLEAR) Urine pH (5.0-8.0) Ur Specific [place] (1.008-1.030) Urine Protein (NEGATIVE) mg/dL Urine Glucose (UA) (NEGATIVE) mg/dL Urine Ketones (NEGATIVE) mg/dL Urine Occult Blood (NEGATIVE) Urine Nitrite (NEGATIVE) Urine Bilirubin (NEGATIVE) Urine Urobilinogen (0.2-1.0) EU/dL Ur Leukocyte Esterase (NEGATIVE) Urine RBC (0-5) Urine WBC (0-5) Ur Epithelial Cells Amorphous Sediment Urine Bacteria Urine Mucus 04/09/21 04/09/21 04/09/21 Range/Units 13:43 14:00 14:52 WBC (4.5-11.0) K/uL RBC (4.30-5.90) M/uL Hgb (12.0-15.0) g/dL Hct (40.0-54.0) % MCV (80-98) fL MCH (27-31) pg MCHC (32-36) % Plt Count (150-400) K/uL Neut % (Auto) (36-66) % Lymph % (Auto) (24-44) % [place] % (Auto) (2-6) % Eos % (Auto) (2-4) % Baso % (Auto) (0-1) % D-Dimer, Quantitative 3045.22 H (0.0-500.0) ng/mL Sodium (140-148) mmol/L Potassium (3.6-5.2) mmol/L Chloride (100-108) mmol/L Carbon Dioxide (21-32) mmol/L Anion Gap (5.0-14.0) mmol/L BUN (7-18) mg/dL Creatinine (0.8-1.3) mg/dL Est Cr Clr Drug Dosing mL/min Estimated GFR (MDRD) (>60) Glucose (74-106) mg/dL Lactic Acid (0.4-2.0) mmol/L Calcium (8.5-10.1) mg/dL Total Bilirubin (0.2-1.0) mg/dL AST (15-37) U/L ALT (12-78) U/L Alkaline Phosphatase (46-116) U/L Troponin I < 0.017 (0.000-0.056) ng/mL Total Protein (6.4-8.2) g/dL Albumin (3.4-5.0) g/dL Globulin (2.3-3.5) g/dL Albumin/Globulin Ratio (1.2-2.2) Procalcitonin 0.08 ng/mL Urine Color (YELLOW) Urine Appearance (CLEAR) Urine pH (5.0-8.0) Ur Specific [place] (1.008-1.030) Urine Protein (NEGATIVE) mg/dL Urine Glucose (UA) (NEGATIVE) mg/dL Urine Ketones (NEGATIVE) mg/dL Urine Occult Blood (NEGATIVE) Urine Nitrite (NEGATIVE) Urine Bilirubin (NEGATIVE) Urine Urobilinogen (0.2-1.0) EU/dL Ur Leukocyte Esterase (NEGATIVE) Urine RBC (0-5) Urine WBC (0-5) Ur Epithelial Cells Amorphous Sediment Urine Bacteria Urine Mucus 04/09/21 Range/Units 15:19 WBC (4.5-11.0) K/uL RBC (4.30-5.90) M/uL Hgb (12.0-15.0) g/dL Hct (40.0-54.0) % MCV (80-98) fL MCH (27-31) pg MCHC (32-36) % Plt Count (150-400) K/uL Neut % (Auto) (36-66) % Lymph % (Auto) (24-44) % [place] % (Auto) (2-6) % Eos % (Auto) (2-4) % Baso % (Auto) (0-1) % D-Dimer, Quantitative (0.0-500.0) ng/mL Sodium (140-148) mmol/L Potassium (3.6-5.2) mmol/L Chloride (100-108) mmol/L Carbon Dioxide (21-32) mmol/L Anion Gap (5.0-14.0) mmol/L BUN (7-18) mg/dL Creatinine (0.8-1.3) mg/dL Est Cr Clr Drug Dosing mL/min Estimated GFR (MDRD) (>60) Glucose (74-106) mg/dL Lactic Acid (0.4-2.0) mmol/L Calcium (8.5-10.1) mg/dL Total Bilirubin (0.2-1.0) mg/dL AST (15-37) U/L ALT (12-78) U/L Alkaline Phosphatase (46-116) U/L Troponin I (0.000-0.056) ng/mL Total Protein (6.4-8.2) g/dL Albumin (3.4-5.0) g/dL Globulin (2.3-3.5) g/dL Albumin/Globulin Ratio (1.2-2.2) Procalcitonin ng/mL Urine Color Yellow (YELLOW) Urine Appearance Cloudy A (CLEAR) Urine pH 6.0 (5.0-8.0) Ur Specific [place] 1.025 (1.008-1.030) Urine Protein 100 H (NEGATIVE) mg/dL Urine Glucose (UA) Normal (NEGATIVE) mg/dL Urine Ketones Trace H (NEGATIVE) mg/dL Urine Occult Blood Large H (NEGATIVE) Urine Nitrite Positive H (NEGATIVE) Urine Bilirubin Negative (NEGATIVE) Urine Urobilinogen 0.2 (0.2-1.0) EU/dL Ur Leukocyte Esterase Large (NEGATIVE) Urine RBC 10-20 H (0-5) Urine WBC Packed H (0-5) Ur Epithelial Cells Few Amorphous Sediment Not seen Urine Bacteria Many Urine Mucus Not seen Result Diagrams: 04/09/21 13:06 04/09/21 13:06 Sepsis Event Note - Evaluation Sepsis Screening Result: Possible Sepsis Risk - Focused Exam Vital Signs: Vital Signs Temp Pulse Resp BP BP Pulse Ox 04/09/21 15:20 98.5 F 101 H 18 128/84 95 04/09/21 13:40 123/78 04/09/21 13:38 100.3 F 113 H 21 H 123/78 95 04/09/21 13:08 99.5 F 116 H 20 91/55 L 90 L 04/09/21 12:58 110/77 04/09/21 12:33 100 F 112 H 20 105/68 91 L *Q Meaningful Use (ADM) - VTE Risk Assess *Q Each Risk Factor Represents 1 Point: Abnormal Pulmonary Function (COPD) Total Score 1 Point Risk Factors: 1 Each Risk Factor Represents 2 Points: Age 60 - 74 Years Total Score 2 Point Risk Factors: 2 Each Risk Factor Represents 3 Points: None Total Score 3 Point Risk Factors: 0 Each Risk Factor Represents 5 Points: None Total Score 5 Point Risk Factors: 0 Venous Thromboembolism Risk Factor Score *Q: 3 Problem List Initiated/Reviewed/Updated: Yes Orders Last 24hrs: Active Orders 24 hr Category Date Time Status Patient Status Manage Transfer [TRANSFER] Routine ADT 04/09/21 17:28 Ordered Cardiac Monitoring [RC] .As Directed Care 04/09/21 12:53 Active EKG Documentation Completion [RC] ASDIRECTED Care 04/09/21 12:55 Active EKG Documentation Completion [RC] ASDIRECTED Care 04/09/21 14:52 Active Peripheral IV Care [RC] . DIRECTED Care 04/09/21 12:55 Active COVID-19/FLU A+B/RSV [MOLEC] Urgent Lab 04/09/21 14:00 Ordered CULTURE BLOOD [BC] Urgent Lab 04/09/21 14:10 Received CULTURE BLOOD [BC] Urgent Lab 04/09/21 14:16 Received CULTURE URINE [RM] Urgent Lab 04/09/21 15:30 Received Morphine Med 04/09/21 12:52 Active 4 mg IVPUSH Q10M PRN Nitroglycerin [Nitrostat] Med 04/09/21 12:52 Active 0.4 mg SL Q5M PRN Sodium Chloride 0.9% [Saline Flush] Med 04/09/21 12:52 Active 10 ml FLUSH ASDIRECTED PRN Blood Culture x2 Reflex Set [OM.PC] Urgent Oth 04/09/21 13:55 Ordered Isolation [COMM] Stat Ot 04/09/21 14:00 Ordered Peripheral IV Insertion Adult [OM.PC] Stat Ot 04/09/21 12:52 Ordered Saline Lock Insert [OM.PC] Stat Ot 04/09/21 12:52 Ordered Resuscitation Status Routine Resus Stat 04/09/21 17:33 Ordered EKG 12 Lead [EK] Stat Ther 04/09/21 12:54 Ordered EKG 12 Lead [EK] Stat Ther 04/09/21 14:52 Ordered Medication Orders Morphine Sulfate (Morphine 4 Mg/Ml Syringe) 4 mg IVPUSH Q10M PRN PRN Reason: Chest Pain Stop: 04/10/21 12:53 Last Admin: 04/09/21 12:59 Dose: 4 mg Documented by: [id number] Nitroglycerin (Nitroglycerin 0.4 Mg Tab.Sl) 0.4 mg SL Q5M PRN PRN Reason: Chest Pain Stop: 04/10/21 12:53 Last Admin: 04/09/21 13:40 Dose: 0.4 mg Documented by: [email or web address] Admin: 04/09/21 12:58 Dose: 0.4 mg Documented by: [email or web address] Sodium Chloride (Sodium Chloride 0.9% 10 Ml Syringe) 10 ml FLUSH ASDIRECTED PRN PRN Reason: Keep Vein Open Last Admin: 04/09/21 13:02 Dose: 10 ml Documented by: [id number] Assessment/Plan Comment:: ASSESSMENT AND PLAN URINARY TRACT INFECTION-history of increased difficulty with urination secondary to BPH over the past several weeks. Recent history of dysuria, urinalysis shows evidence of underlying urinary tract infection. -Outpatient follow-up with urology -Urine and blood cultures pending -IV fluids overnight -Ceftriaxone 1 g IV every 24 hours pending culture results CHEST PAIN-history of coronary artery disease, ST segment changes noted on initial EKG. Pain has resolved and not recurred but was present most of the morning. 2 troponin levels have been within normal range. D-dimer found to be elevated, not a current candidate for CT angiogram because of renal function. -Follow-up troponin level in 6 hours -Ultrasound of both lower extremities -Lexiscan Myoview study -CT angiogram of the chest if renal function improves with hydration CHRONIC KIDNEY DISEASE-Baseline renal function is not known at this time -IV fluids overnight -Reassess renal function in a.m. MAINTENANCE ISSUES -DVT prophylaxis; Lovenox 40 mg subcu daily -GI prophylaxis; continue outpatient PPI and H2 ale therapy -Guerrero catheter; not indicated -Nutrition; regular diet -Nicotine dependence; nicotine patch and nicotine gum CODE STATUS-FULL CODE ADMISSION STATUS-patient will be admitted to inpatient status, expect at least a 2 night hospital stay for evaluation and management of problems as outlined above. At the time of this admission I do not reasonably expected evaluation and management of this problem will require more than a 96 hour hospital stay. DISPOSITION-anticipate discharge to home after the hospital stay. PRIMARY CARE PROVIDER-Dr. Sloan - Mortality Measure Prognosis:: Good
[2021-04-09] MEDS ORDERED: Acetaminophen 325 MG Tab PO PRN (18:01)
[2021-04-09] MEDS ORDERED: Sodium Chloride 0.9% 1,000 ML IV SCH (18:01)
[2021-04-09] MEDS ORDERED: Albuterol 0.083% 2.5 MG/3 ML Neb Soln NEB PRN (18:01)
[2021-04-09] MEDS ORDERED: Polyethylene Glycol 3350 Powder 17 GM Packet PO PRN (18:01)
[2021-04-09] MEDS ORDERED: Nitroglycerin 0.4 MG Tab.SL SL PRN (18:01)
[2021-04-09] MEDS ORDERED: Ondansetron 4 MG/2 ML SDV IV PRN (18:01)
[2021-04-09] MEDS ORDERED: Nicotine 21 MG/24 Hr Patch TRDERM SCH (18:01)
[2021-04-09] MEDS ORDERED: Enoxaparin 40 MG/0.4 ML Syringe SUBCUT SCH (18:01)
[2021-04-09] MEDS ORDERED: Nicotine Polacrilex 2 MG Gum CHEW PRN (18:01)
[2021-04-09] MEDS ORDERED: Gabapentin 100 MG Cap PO SCH (21:00)
[2021-04-09] MEDS ORDERED: Fluticasone Propionate Nasal Spray 16 GM Bottle NASBOTH SCH (21:00)
[2021-04-09] MEDS ORDERED: atorvaSTATin 20 MG Tab PO SCH (21:00)
[2021-04-09] MEDS ORDERED: Metoprolol Tartrate 25 MG Tab PO SCH (21:00)
[2021-04-09] MEDS ORDERED: Famotidine 20 MG Tab PO SCH (21:00)
--- NOTE | 2021-04-09 23:50 | PCM.SN.2 ---
- Free Text/Narrative Note: call from [address] [place] [address]- critical lab result troponin 1.165 S: Mr. Castillo denies any chest pain at this time. O: vital signs 95.8-88-18 B/P 136/81 O2 sat 92% on room air Troponin negative X2 in ER prior to admission to hospital. now Troponin 1.165 Telemetry SR with rate 80's Lung-clear to bases heart -S1S2 with murmur abdomen-soft non tender legs- no edema A: elevation Troponin rule out non-STEMI ND P: consult with Hospitalist recommends transfer to Hospital with cardiology Discussed case with Dr. Fatima, kindly accept Mr. Castillo for further care and treatment transfer by EMS [facility]
[2021-04-10] MEDS ORDERED: Pantoprazole 40 MG Tab.CR PO SCH (07:30)
--- NOTE | 2021-04-10 08:14 | PCM.DCSUM1 ---
Discharge Summary - Hospital Course Brief History: Mr. Castillo is a 70-year-old gentleman who was admitted through the emergency department with weakness and chest pain, secondary to urinary tract infection. - Discharge Data Discharge Date: 04/09/21 Discharge Disposition: DC/Tfer to Acute Hospital 02 Condition: Fair - Referral to Home Health Primary Care Physician: PCP None - Patient Summary/Data Hospital Course: is a 70-year-old gentleman who was admitted through the emergency department with chest pain and urinary tract infection. He has a known history of coronary artery disease but is not had chest pain for some time. This morning reports symptoms of chest pain in the central chest described as an intense ache that did not radiate. This pain was similar to what he is experienced in the past with his angina. Initial EKG did show ST segment changes that had been not present on previous EKG. Pain resolved and has not recurred while he has been in the emergency department. 2 troponin levels have been obtained and both are within normal range. White blood cell count was noted to be elevated and he was mildly tachycardic, felt to be secondary to dehydration. Lactic acid level is within normal range. Urinalysis shows evidence of urinary tract infection and he has had difficulty with prostatic enlargement. Blood cultures as well as urine cultures have been obtained and he was started on IV ceftriaxone in the emergency department. D-dimer was also found to be significantly elevated, CT angiogram of the chest could not be obtained because of his underlying renal insufficiency. CT scan of the chest without contrast was obtained and did show evidence of COPD but no other significant abnormalities. On admission IV fluids were continued as well as IV antibiotic therapy. Troponin level was obtained later in the evening and unfortunately did come back significantly elevated at 1.165, indicating non-ST segment elevation myocardial infarction. Transfer was arranged to [facility] in [facility] via [facility] ambulance. No other beds were available in the area to accept the patient. - Discharge Plan Home Medications: Home Meds Cetirizine HCl [Zyrtec] 10 mg PO DAILY 08/04/20 [History] Cimetidine 300 mg PO BEDTIME 08/04/20 [History] Clopidogrel [Plavix] 75 mg PO DAILY 08/04/20 [History] Gabapentin [Neurontin] 2 tab PO TID 08/04/20 [History] Metoprolol Tartrate 25 mg PO BID 08/04/20 [History] Pantoprazole Sodium [Protonix] 40 mg PO ACBREAKFAST 08/04/20 [History] atorvaSTATin Calcium [Lipitor] 20 mg PO BEDTIME 08/04/20 [History] lisinopriL [Lisinopril] 1 tab PO DAILY 08/04/20 [History] Fluticasone Propionate [Flonase] 16 gm .XX BID #1 bottle 03/22/21 [Rx] Forms: ED Department Discharge Referrals: PCP,None [Primary Care Provider] - - Discharge Summary/Plan Comment DC Time >30 min.: No - Patient Data Vitals - Most Recent: Last Vital Signs Temp 95.8 F L 04/09/21 21:48 Pulse 88 04/09/21 21:48 Resp 18 04/09/21 21:48 BP 136/81 04/09/21 21:48 Pulse Ox 92 L 04/09/21 21:48 Weight - Most Recent: 178 lb 8 oz I&O - Last 24 hours: Intake & Output 04/09/21 04/10/21 04/10/21 22:59 06:59 14:59 Intake Total 480 Output Total 200 Balance 280 Lab Results - Last 24 hrs: Laboratory Results - last 24 hr 04/09/21 04/09/21 04/09/21 Range/Units 13:06 13:06 13:06 WBC 21.2 H (4.5-11.0) K/uL RBC 4.71 (4.30-5.90) M/uL Hgb 14.1 (12.0-15.0) g/dL Hct 43.9 (40.0-54.0) % MCV 93 (80-98) fL MCH 30 (27-31) pg MCHC 32 (32-36) % Plt Count 274 (150-400) K/uL Neut % (Auto) 86.9 H (36-66) % Lymph % (Auto) 6.1 L (24-44) % Ware % (Auto) 6.6 H (2-6) % Eos % (Auto) 0.2 L (2-4) % Baso % (Auto) 0.2 (0-1) % D-Dimer, Quantitative (0.0-500.0) ng/mL Sodium 139 L (140-148) mmol/L Potassium 3.7 (3.6-5.2) mmol/L Chloride 102 (100-108) mmol/L Carbon Dioxide 23 (21-32) mmol/L Anion Gap 17.7 H (5.0-14.0) mmol/L BUN 14 (7-18) mg/dL Creatinine 2.0 H (0.8-1.3) mg/dL Est Cr Clr Drug Dosing 3.43 mL/min Estimated GFR (MDRD) 33 L (>60) Glucose 114 H (74-106) mg/dL Lactic Acid 1.3 (0.4-2.0) mmol/L Calcium 8.8 (8.5-10.1) mg/dL Total Bilirubin 1.2 H (0.2-1.0) mg/dL AST 16 (15-37) U/L ALT 19 (12-78) U/L Alkaline Phosphatase 114 (46-116) U/L Troponin I < 0.017 (0.000-0.056) ng/mL Total Protein 7.9 (6.4-8.2) g/dL Albumin 3.2 L (3.4-5.0) g/dL Globulin 4.7 H (2.3-3.5) g/dL Albumin/Globulin Ratio 0.7 L (1.2-2.2) Procalcitonin ng/mL Urine Color (YELLOW) Urine Appearance (CLEAR) Urine pH (5.0-8.0) Ur Specific [place] (1.008-1.030) Urine Protein (NEGATIVE) mg/dL Urine Glucose (UA) (NEGATIVE) mg/dL Urine Ketones (NEGATIVE) mg/dL Urine Occult Blood (NEGATIVE) Urine Nitrite (NEGATIVE) Urine Bilirubin (NEGATIVE) Urine Urobilinogen (0.2-1.0) EU/dL Ur Leukocyte Esterase (NEGATIVE) Urine RBC (0-5) Urine WBC (0-5) Ur Epithelial Cells Amorphous Sediment Urine Bacteria Urine Mucus SARS CoV-2 RNA Rapid CARMINE 04/09/21 04/09/21 04/09/21 Range/Units 13:43 14:00 14:52 WBC (4.5-11.0) K/uL RBC (4.30-5.90) M/uL Hgb (12.0-15.0) g/dL Hct (40.0-54.0) % MCV (80-98) fL MCH (27-31) pg MCHC (32-36) % Plt Count (150-400) K/uL Neut % (Auto) (36-66) % Lymph % (Auto) (24-44) % Ware % (Auto) (2-6) % Eos % (Auto) (2-4) % Baso % (Auto) (0-1) % D-Dimer, Quantitative 3045.22 H (0.0-500.0) ng/mL Sodium (140-148) mmol/L Potassium (3.6-5.2) mmol/L Chloride (100-108) mmol/L Carbon Dioxide (21-32) mmol/L Anion Gap (5.0-14.0) mmol/L BUN (7-18) mg/dL Creatinine (0.8-1.3) mg/dL Est Cr Clr Drug Dosing mL/min Estimated GFR (MDRD) (>60) Glucose (74-106) mg/dL Lactic Acid (0.4-2.0) mmol/L Calcium (8.5-10.1) mg/dL Total Bilirubin (0.2-1.0) mg/dL AST (15-37) U/L ALT (12-78) U/L Alkaline Phosphatase (46-116) U/L Troponin I < 0.017 (0.000-0.056) ng/mL Total Protein (6.4-8.2) g/dL Albumin (3.4-5.0) g/dL Globulin (2.3-3.5) g/dL Albumin/Globulin Ratio (1.2-2.2) Procalcitonin 0.08 ng/mL Urine Color (YELLOW) Urine Appearance (CLEAR) Urine pH (5.0-8.0) Ur Specific [place] (1.008-1.030) Urine Protein (NEGATIVE) mg/dL Urine Glucose (UA) (NEGATIVE) mg/dL Urine Ketones (NEGATIVE) mg/dL Urine Occult Blood (NEGATIVE) Urine Nitrite (NEGATIVE) Urine Bilirubin (NEGATIVE) Urine Urobilinogen (0.2-1.0) EU/dL Ur Leukocyte Esterase (NEGATIVE) Urine RBC (0-5) Urine WBC (0-5) Ur Epithelial Cells Amorphous Sediment Urine Bacteria Urine Mucus SARS CoV-2 RNA Rapid CARMINE 04/09/21 04/09/2121 Range/Units 15:19 21:04 23:20 WBC (4.5-11.0) K/uL RBC (4.30-5.90) M/uL Hgb (12.0-15.0) g/dL Hct (40.0-54.0) % MCV (80-98) fL MCH (27-31) pg MCHC (32-36) % Plt Count (150-400) K/uL Neut % (Auto) (36-66) % Lymph % (Auto) (24-44) % Ware % (Auto) (2-6) % Eos % (Auto) (2-4) % Baso % (Auto) (0-1) % D-Dimer, Quantitative (0.0-500.0) ng/mL Sodium (140-148) mmol/L Potassium (3.6-5.2) mmol/L Chloride (100-108) mmol/L Carbon Dioxide (21-32) mmol/L Anion Gap (5.0-14.0) mmol/L BUN (7-18) mg/dL Creatinine (0.8-1.3) mg/dL Est Cr Clr Drug Dosing mL/min Estimated GFR (MDRD) (>60) Glucose (74-106) mg/dL Lactic Acid (0.4-2.0) mmol/L Calcium (8.5-10.1) mg/dL Total Bilirubin (0.2-1.0) mg/dL AST (15-37) U/L ALT (12-78) U/L Alkaline Phosphatase (46-116) U/L Troponin I 1.165 H* (0.000-0.056) ng/mL Total Protein (6.4-8.2) g/dL Albumin (3.4-5.0) g/dL Globulin (2.3-3.5) g/dL Albumin/Globulin Ratio (1.2-2.2) Procalcitonin ng/mL Urine Color Yellow (YELLOW) Urine Appearance Cloudy A (CLEAR) Urine pH 6.0 (5.0-8.0) Ur Specific [place] 1.025 (1.008-1.030) Urine Protein 100 H (NEGATIVE) mg/dL Urine Glucose (UA) Normal (NEGATIVE) mg/dL Urine Ketones Trace H (NEGATIVE) mg/dL Urine Occult Blood Large H (NEGATIVE) Urine Nitrite Positive H (NEGATIVE) Urine Bilirubin Negative (NEGATIVE) Urine Urobilinogen 0.2 (0.2-1.0) EU/dL Ur Leukocyte Esterase Large (NEGATIVE) Urine RBC 10-20 H (0-5) Urine WBC Packed H (0-5) Ur Epithelial Cells Few Amorphous Sediment Not seen Urine Bacteria Many Urine Mucus Not seen SARS CoV-2 RNA Rapid CARMINE Negative BRITTNEY Results - Last 24 hrs: Microbiology 04/09/21 15:30 Urine Culture - Preliminary Urine, Clean Catch Med Orders - Current: Current Medications Discontinued Medications Acetaminophen (Acetaminophen 325 Mg Tab) 650 mg PO Q4H PRN PRN Reason: Pain (Mild 1-3)/fever Albuterol (Albuterol 0.083% 2.5 Mg/3 Ml Neb Soln) 2.5 mg NEB Q4H PRN PRN Reason: Shortness Of Breath/wheezing Atorvastatin Calcium (Atorvastatin 20 Mg Tab) 20 mg PO BEDTIME [facility] Last Admin: 04/09/21 21:42 Dose: 20 mg Documented by: Cetirizine HCl (Cetirizine 10 Mg Tab) 10 mg PO DAILY [facility] Clopidogrel Bisulfate (Clopidogrel 75 Mg Tab) 75 mg PO DAILY [facility] Enoxaparin Sodium (Enoxaparin 40 Mg/0.4 Ml Syringe) 40 mg SUBCUT DAILY [facility] Last Admin: 04/09/21 18:35 Dose: Not Given Documented by: Famotidine (Famotidine 20 Mg Tab) 20 mg PO BEDTIME [facility] Last Admin: 04/09/21 21:42 Dose: 20 mg Documented by: Fluticasone Propionate (Fluticasone Propionate Nasal [place] 16 Gm Bottle) 0 gm NASBOTH BID [facility] Last Admin: 04/09/21 21:41 Dose: Not Given Documented by: Gabapentin (Gabapentin 100 Mg Cap) 200 mg PO TID [facility] Last Admin: 04/09/21 21:42 Dose: 200 mg Documented by: Ceftriaxone Sodium 1 gm/ (Sodium Chloride) 50 mls @ 100 mls/hr IV ONETIME ONE Stop: 04/09/21 16:16 Last Admin: 04/09/21 16:43 Dose: 100 mls/hr Documented by: Sodium Chloride (Normal Saline) 1,000 mls @ 75 mls/hr IV ASDIRECTED [facility] Ceftriaxone Sodium 1 gm/ (Sodium Chloride) 50 mls @ 100 mls/hr IV Q24H [facility] Lisinopril (Lisinopril 2.5 Mg Tab) 2.5 mg PO DAILY [facility] Metoprolol Tartrate (Metoprolol Tartrate 25 Mg Tab) 25 mg PO BID [facility] Last Admin: 04/09/21 21:42 Dose: 25 mg Documented by: Morphine Sulfate (Morphine 4 Mg/Ml Syringe) 4 mg IVPUSH Q10M PRN PRN Reason: Chest Pain Stop: 04/10/21 12:53 Last Admin: 04/09/21 12:59 Dose: 4 mg Documented by: Nicotine (Nicotine 21 Mg/24 Hr Patch) 21 mg TRDERM DAILY [facility] Last Admin: 04/09/21 18:07 Dose: Not Given Documented by: Nicotine Polacrilex (Nicotine Polacrilex 2 Mg Gum) 2 mg CHEW Q1H PRN PRN Reason: Other Nitroglycerin (Nitroglycerin 0.4 Mg Tab.Sl) 0.4 mg SL Q5M PRN PRN Reason: Chest Pain Stop: 04/10/21 12:53 Last Admin: 04/09/21 13:40 Dose: 0.4 mg Documented by: Nitroglycerin (Nitroglycerin 0.4 Mg Tab.Sl) 0.4 mg SL Q5M PRN PRN Reason: Chest Pain Ondansetron HCl (Ondansetron 4 Mg/2 Ml Sdv) 4 mg IV Q4H PRN PRN Reason: Nausea/Vomiting Pantoprazole Sodium (Pantoprazole 40 Mg Tab.Cr) 40 mg PO ACBREAKFAST [facility] Polyethylene Glycol (Polyethylene Glycol 3350 Powder 17 Gm Packet) 17 gm PO DAILY PRN PRN Reason: Constipation Sodium Chloride (Sodium Chloride 0.9% 10 Ml Syringe) 10 ml FLUSH ASDIRECTED PRN PRN Reason: Keep Vein Open Last Admin: 04/09/21 13:02 Dose: 10 ml Documented by: Sodium Chloride (Sodium Chloride 0.9% 10 Ml Syringe) 10 ml FLUSH ASDIRECTED PRN PRN Reason: Keep Vein Open - Exam Quality Assessment: Reports: DVT Prophylaxis General: Reports: Alert, Oriented, Cooperative, Mild Distress Lungs: Reports: Clear to Auscultation, Normal Respiratory Effort, Decreased Breath Sounds Cardiovascular: Reports: Regular Rate, Regular Rhythm, No Murmurs GI/Abdominal Exam: Soft, Non-Tender, No Organomegaly, No Distention Extremities: Non-Tender, No Pedal Edema
[2021-04-10] MEDS ORDERED: Clopidogrel 75 MG Tab PO SCH (09:00)
[2021-04-10] MEDS ORDERED: Cetirizine 10 MG Tab PO SCH (09:00)
[2021-04-10] MEDS ORDERED: Lisinopril 2.5 MG Tab PO SCH (09:00)
[2021-04-10] MEDS ORDERED: cefTRIAXone 1 GM in Sodium Chloride 0.9% 50 ML IV SCH (16:00)
== END 2021-04-10 | DRG 281 ==
LOC: JP.ED 12:21 → JP.MS 17:28
PROVIDERS: ADMIT Hospitalist; ATTEND Hospitalist
DX: I21.4 Non-ST elevation (NSTEMI) myocardial infarction (principal); R07.9 Chest pain, unspecified; N30.00 Acute cystitis without hematuria; I25.10 Atherosclerotic heart disease of native coronary artery without angina pectoris; E78.00 Pure hypercholesterolemia, unspecified; I10 Essential (primary) hypertension; J44.9 Chronic obstructive pulmonary disease, unspecified; M19.90 Unspecified osteoarthritis, unspecified site; G71.00 Muscular dystrophy, unspecified; N42.9 Disorder of prostate, unspecified; F17.210 Nicotine dependence, cigarettes, uncomplicated; N18.9 Chronic kidney disease, unspecified; Z79.02 Long term (current) use of antithrombotics/antiplatelets; F17.200 Nicotine dependence, unspecified, uncomplicated; Z20.822 Contact with and (suspected) exposure to COVID-19; N40.0 Benign prostatic hyperplasia without lower urinary tract symptoms; Z88.2 Allergy status to sulfonamides; Z79.899 Other long term (current) drug therapy; I25.2 Old myocardial infarction
CPT/HCPCS: 36415; 71045 ×2; 71250; 80053; 81001; 83605; 84145; 84484 ×2; 85025; 85379; 87040 ×2; 87086; 93005 ×2; A9270 ×2; J0696; J2270; 87088; 87186; 96365; 96375; 99285-25; U0002

== ENCOUNTER 2021-07-05 04:29 | Emergency (ER) | payer MEDICARE ==
--- NOTE | 2021-07-05 04:36 | EDM.PDOC ---
ED HPI GENERAL MEDICAL PROBLEM - General Chief Complaint: General Stated Complaint: WEAK/PAIN WHEN GOING TO BATHROOM Time Seen by Provider: 07/05/21 04:36 Source of Information: Reports: Patient, Old Records History Limitations: Reports: No Limitations - History of Present Illness INITIAL COMMENTS - FREE TEXT/NARRATIVE: Michele is a 70-year-old male presenting to the ED for evaluation of painful urination causing chest pain. His symptoms have been ongoing and worsening for the last 3 days. Patient is previously presented like this when I saw him in March 2021 and he was found to have a significant urinary tract infection. Patient does have a history significant for coronary artery disease and has stable angina. He states that the pain only occurs while he is urinating but goes away as soon as he is completed. He denies any fever or chills, back pain, but he has had urinary incontinence since the onset of symptoms. Currently he is pain-free. Also currently, the patient states that he cannot pee. - Related Data Allergies Allergy/AdvReac Type Severity Reaction Status Date / Time [id number] Reductase Allergy Cannot Verified 07/05/21 05:09 Inhibitor Remember Sulfa (Sulfonamide Allergy Cannot Verified 07/05/21 04:42 Antibiotics) Remember Home Meds: Home Meds Cetirizine HCl [Zyrtec] 10 mg PO DAILY 08/04/20 [History] Cimetidine 300 mg PO BEDTIME 08/04/20 [History] Clopidogrel [Plavix] 75 mg PO DAILY 08/04/20 [History] Gabapentin [Neurontin] 200 mg PO TID 08/04/20 [History] Metoprolol Tartrate 25 mg PO BID 08/04/20 [History] Pantoprazole Sodium [Protonix] 40 mg PO ACBREAKFAST 08/04/20 [History] atorvaSTATin Calcium [Lipitor] 20 mg PO BEDTIME 08/04/20 [History] Cholecalciferol (Vitamin D3) [Vitamin D3] 1 tab PO DAILY 07/05/21 [History] Docusate Sodium 100 mg PO BID 07/05/21 [History] Finasteride [Proscar] 5 mg PO DAILY 07/05/21 [History] Isosorbide Mononitrate [Imdur] 30 mg PO DAILY 07/05/21 [History] Multivitamin 1 tab PO DAILY 07/05/21 [History] amLODIPine [Norvasc] 2.5 mg PO DAILY 07/05/21 [History] cephALEXin [Cephalexin] 250 mg PO BID #14 capsule 07/05/21 [Rx] Past Medical History Cardiovascular History: Reports: CAD, High Cholesterol, Hypertension, [place] Respiratory History: Reports: COPD Gastrointestinal History: Reports: GI Bleed Genitourinary History: Reports: Prostate Disorder Musculoskeletal History: Reports: Osteoarthritis Neurological History: Reports: Head Trauma, Other (See Below) Other Neuro History: muscular dystrophy - Infectious Disease History Infectious Disease History: Reports: Chicken Pox, Measles, Mumps - Past Surgical History Head Surgeries/Procedures: Reports: None Cardiovascular Surgical History: Reports: Coronary Artery Stent Respiratory Surgical History: Reports: None GI Surgical History: Reports: Colonoscopy Neurological Surgical History: Reports: None Musculoskeletal Surgical History: Reports: None Social & Family History - Family History Family Medical History: No Pertinent Family History - Caffeine Use Caffeine Use: Reports: Coffee ED ROS GENERAL - Review of Systems Review Of Systems: See Below Constitutional: Reports: No Symptoms ED EXAM, GENERAL - Physical Exam Exam: See Below Exam Limited By: No Limitations General Appearance: Alert, No Apparent Distress, Anxious Head: Atraumatic, Normocephalic Neck: Normal Inspection Respiratory/Chest: No Respiratory Distress, Lungs Clear, Normal Breath Sounds Cardiovascular: Normal Peripheral Pulses, Regular Rate, Rhythm, No Murmur GI/Abdominal: Normal Bowel Sounds, Soft, Non-Tender Extremities: Normal Inspection Neurological: Alert, Oriented, Normal Cognition, No Motor/Sensory Deficits Psychiatric: Normal Affect, Normal Mood Skin Exam: Warm, Dry #1 Interpretation EKG Date: 07/05/21 Time: 04:49 Rhythm: NSR (Occasional premature ventricular contractions.) Rate (Beats/Min): 93 [place]: Normal P-Wave: Present QRS: Normal ST-T: Normal QT: Normal Comparison: No Change Course - Vital Signs Last Recorded V/S: Last Vital Signs Temp 36.5 C 07/05/21 04:36 Pulse 90 07/05/21 04:36 Resp 18 07/05/21 04:36 BP 139/84 07/05/21 04:36 Pulse Ox 94 L 07/05/21 04:36 - Orders/Labs/Meds Orders: Active Orders 24 hr Category Date Time Status CULTURE URINE [RM] Stat Lab 07/05/21 06:14 Ordered cephALEXin [Keflex] Med 07/05/21 06:17 Once 250 mg PO ONETIME ONE EKG 12 Lead [EK] Routine Ther 07/05/21 04:35 Ordered Labs: Laboratory Tests 07/05/21 07/05/21 07/05/21 Range/Units 04:35 04:35 05:54 WBC 16.2 H (4.5-11.0) K/uL RBC 5.24 (4.30-5.90) M/uL Hgb 15.6 H (12.0-15.0) g/dL Hct 47.8 (40.0-54.0) % MCV 91 (80-98) fL MCH 30 (27-31) pg MCHC 33 (32-36) % Plt Count 201 (150-400) K/uL Neut % (Auto) 75.6 H (36-66) % Lymph % (Auto) 12.6 L (24-44) % [place] % (Auto) 11.3 H (2-6) % Eos % (Auto) 0.2 L (2-4) % Baso % (Auto) 0.3 (0-1) % Sodium 139 L (140-148) mmol/L Potassium 4.3 (3.6-5.2) mmol/L Chloride 99 L (100-108) mmol/L Carbon Dioxide 25 (21-32) mmol/L Anion Gap 19.3 H (5.0-14.0) mmol/L BUN 17 (7-18) mg/dL Creatinine 2.2 H (0.8-1.3) mg/dL Est Cr Clr Drug Dosing 34.30 mL/min Estimated GFR (MDRD) 30 L (>60) Glucose 104 (74-106) mg/dL Calcium 9.3 (8.5-10.1) mg/dL Troponin I < 0.017 (0.000-0.056) ng/mL Urine Color Yellow (YELLOW) Urine Appearance Cloudy A (CLEAR) Urine pH 7.0 (5.0-8.0) Ur Specific [place] 1.025 (1.008-1.030) Urine Protein >=300 H (NEGATIVE) mg/dL Urine Glucose (UA) Negative (NEGATIVE) mg/dL Urine Ketones Negative (NEGATIVE) mg/dL Urine Occult Blood Moderate H (NEGATIVE) Urine Nitrite Positive H (NEGATIVE) Urine Bilirubin Negative (NEGATIVE) Urine Urobilinogen 0.2 (0.2-1.0) EU/dL Ur Leukocyte Esterase Moderate H (NEGATIVE) Urine RBC 10-20 H (0-5) Urine WBC 50-75 H (0-5) Ur Epithelial Cells Rare Amorphous Sediment Not seen Urine Bacteria Many Urine Mucus Few - Re-Assessments/Exams Free Text/Narrative Re-Assessment/Exam: 07/05/21 06:17 I reviewed Michele's labs showing a leukocyte count of 16.2 with a hemoglobin of 15.6, hematocrit of 47.8 and a platelet count of 201,000. There is 75% neutrophils. The metabolic profile is unremarkable except for a creatinine of 2.2 and a GFR of 30. Troponin I is negative at less than 0.017. An EKG was reviewed showing normal sinus rhythm with occasional PVCs. There was no evidence for any significant ST elevation or depression. Urinalysis was obtained showing positive nitrites and leukocyte esterase with 10-20 RBCs and 50-75 WBCs. This is consistent with an acute urinary tract infection and like before is likely causing his symptoms. A urine culture is currently ordered and pending. We will start the patient on cephalexin 250 mg twice daily for 7 days for complicated UTI. At this time, the patient is suitable for discharge home in satisfactory condition. Indications return to the ED were discussed. Did reassure the patient that there was no evidence that his pain is arising from the heart. Departure - Departure Time of Disposition: 06:20 Disposition: Home, Self-Care 01 Clinical Impression: Urinary tract infection Qualifiers: Urinary tract infection type: acute cystitis Hematuria presence: without hematuria Qualified Code(s): N30.00 - Acute cystitis without hematuria - Discharge Information Prescriptions: cephALEXin [Cephalexin] 250 mg PO BID #14 capsule Instructions: Urinary Tract Infection, Adult, [id number] Referrals: PCP,None [Primary Care Provider] - Forms: ED Department Discharge Care Plan Goals: Your work-up today shows that you again have a significant urinary tract infection. [facility] start you on an antibiotic called cephalexin 250 mg twice daily for 7 days. This should help clear up the infection. The infection is also likely causing your pain. There was no evidence in the work-up that the pain was arising from the heart. Make sure to drink plenty of fluids to help flush the kidneys. Sepsis Event Note (ED) - Focused Exam Vital Signs: Vital Signs Temp Pulse Resp BP Pulse Ox 07/05/21 04:36 36.5 C 90 18 139/84 94 L - Problem List & Annotations (1) Urinary tract infection SNOMED Code(s): 75206437 Code(s): N39.0 - URINARY TRACT INFECTION, SITE NOT SPECIFIED Status: Acute Priority: Medium Current Visit: Yes Qualifiers: Urinary tract infection type: acute cystitis Hematuria presence: without hematuria Qualified Code(s): N30.00 - Acute cystitis without hematuria - Problem List Review Problem List Initiated/Reviewed/Updated: Yes - My Orders Last 24 Hours: My Active Orders 07/05/21 04:35 EKG 12 Lead [EK] Routine 07/05/21 06:14 CULTURE URINE [RM] Stat 07/05/21 06:17 cephALEXin [Keflex] 250 mg PO ONETIME ONE - Assessment/Plan Last 24 Hours: My Active Orders 07/05/21 04:35 EKG 12 Lead [EK] Routine 07/05/21 06:14 CULTURE URINE [RM] Stat 07/05/21 06:17 cephALEXin [Keflex] 250 mg PO ONETIME ONE
[2021-07-05] MEDS ORDERED: Cephalexin 250 MG Cap PO ONE (06:17)
== END 2021-07-05 06:42 | disposition home or self-care (01) ==
LOC: JP.ED 04:29
DX: N30.00 Acute cystitis without hematuria (principal); I25.10 Atherosclerotic heart disease of native coronary artery without angina pectoris; E78.00 Pure hypercholesterolemia, unspecified; I10 Essential (primary) hypertension; I25.2 Old myocardial infarction; J44.9 Chronic obstructive pulmonary disease, unspecified; Z79.02 Long term (current) use of antithrombotics/antiplatelets; Z79.899 Other long term (current) drug therapy
CPT/HCPCS: 36415; 80048; 81001; 84484; 85025; 87086; 87088; 87186; 93005; 99285; A9270

== ENCOUNTER 2021-09-30 09:36 | Emergency (ER) | payer MEDICARE ==
--- NOTE | 2021-09-30 09:56 | EDM.PDOC ---
ED HPI GENERAL MEDICAL PROBLEM - General Chief Complaint: Chest Pain Stated Complaint: STRAINED MUSCLES Time Seen by Provider: 09/30/21 09:55 Source of Information: Reports: Patient, Old Records, RN History Limitations: Reports: No Limitations - History of Present Illness INITIAL COMMENTS - FREE TEXT/NARRATIVE: 70 yo male here with L chest pain after moving snow off his car yesterday. No SOB, nausea or diaphoresis. Has a pHx of CAD so was concerned. No self tx. No pain at rest. L chest hurts to touch. 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: Other (see below) (none) Chest Pain Score (Numeric/FACES): 4 - Related Data Allergies Allergy/AdvReac Type Severity Reaction Status Date / Time Sxiofbq-TOF-UcY Reductase Allergy Cannot Verified 09/30/21 09:51 Inhibitor Remember [Eljqabh-Jcq-Cqb Reductase Inhibitor] Sulfa (Sulfonamide Allergy Cannot Verified 09/30/21 09:51 Antibiotics) Remember Home Meds: Home Meds Cetirizine HCl [Zyrtec] 10 mg PO DAILY 08/04/20 [History] Cimetidine 300 mg PO BEDTIME 08/04/20 [History] Clopidogrel [Plavix] 75 mg PO DAILY 08/04/20 [History] Gabapentin [Neurontin] 200 mg PO TID 08/04/20 [History] Metoprolol Tartrate 25 mg PO BID 08/04/20 [History] Pantoprazole Sodium [Protonix] 40 mg PO ACBREAKFAST 08/04/20 [History] atorvaSTATin Calcium [Lipitor] 20 mg PO BEDTIME 08/04/20 [History] Cholecalciferol (Vitamin D3) [Vitamin D3] 1 tab PO DAILY 07/05/21 [History] Docusate Sodium 100 mg PO BID 07/05/21 [History] Finasteride [Proscar] 5 mg PO DAILY 07/05/21 [History] Isosorbide Mononitrate [Imdur] 30 mg PO DAILY 07/05/21 [History] Multivitamin 1 tab PO DAILY 07/05/21 [History] amLODIPine [Norvasc] 2.5 mg PO DAILY 07/05/21 [History] Past Medical History HEENT History: Reports: Allergic Rhinitis Cardiovascular History: Reports: Aneurysm, Angina, CAD, High Cholesterol, Hypertension, [place], Other (See Below) Other Cardiovascular History: AAA without rupture. stenosis Respiratory History: Reports: COPD, SOB Gastrointestinal History: Reports: GERD, GI Bleed Genitourinary History: Reports: Chronic Renal Insuffiency, Prostate Disorder, UTI, Recurrent Musculoskeletal History: Reports: Osteoarthritis Neurological History: Reports: Head Trauma, Neuropathy, Peripheral, Other (See Below) Other Neuro History: muscular dystrophy Endocrine/Metabolic History: Reports: Vitamin D Deficiency Hematologic History: Reports: Anemia - Infectious Disease History Infectious Disease History: Reports: Chicken Pox, Measles, Mumps - Past Surgical History Head Surgeries/Procedures: Reports: None Cardiovascular Surgical History: Reports: Coronary Artery Stent GI Surgical History: Reports: Colonoscopy Social & Family History - Family History Family Medical History: No Pertinent Family History - Tobacco Use Tobacco Use Status *Q: Heavy Tobacco User Years of Tobacco use: 63 Packs/Tins Daily: 1 - Caffeine Use Caffeine Use: Reports: Coffee - Recreational Drug Use Recreational Drug Use: No ED ROS GENERAL - Review of Systems Review Of Systems: See Below Constitutional: Reports: No Symptoms Respiratory: Reports: No Symptoms Cardiovascular: Reports: Chest Pain GI/Abdominal: Reports: No Symptoms. Denies: Nausea Musculoskeletal: Reports: Other (L chest hurst with use of L arm) Skin: Reports: No Symptoms Neurological: Reports: No Symptoms ED EXAM, GENERAL - Physical Exam Exam: See Below Exam Limited By: No Limitations General Appearance: Alert, WD/WN, No Apparent Distress Eye Exam: Bilateral Eye: Normal Inspection Ears: Normal External Exam, Normal Canal, Hearing Grossly Normal Ear Exam: Bilateral Ear: Auricle Normal, Canal Normal Nose: Normal Inspection, No Blood Throat/Mouth: Normal Inspection, Normal Lips, Normal Voice Head: Atraumatic, Normocephalic Neck: Normal Inspection Respiratory/Chest: No Respiratory Distress, Lungs Clear, Normal Breath Sounds, No Accessory Muscle Use. No: Chest Non-Tender (L pectoralis major muscle tender) Cardiovascular: Regular Rate, Rhythm, No Edema GI/Abdominal: Normal Bowel Sounds, Soft, Non-Tender, No Distention. No: Distended Back Exam: Normal Inspection. No: CVA Tenderness (R), CVA Tenderness (L) Extremities: Normal Inspection, Normal Range of Motion, Non-Tender, No Pedal Edema. No: Pedal Edema Neurological: Alert, Oriented, CN II-XII Intact, Normal Cognition, No Motor/Sensory Deficits Psychiatric: Normal Affect, Normal Mood Skin Exam: Warm, Dry, Intact, Normal Color, No Rash #1 Interpretation EKG Date: 09/30/21 Time: 09:50 Rhythm: NSR Rate (Beats/Min): 50 Brush: Normal P-Wave: Present ST-T: Normal QT: Normal Comparison: Change From Previous EKG (Rate has slowed significantly.) Course - Vital Signs Last Recorded V/S: Last Vital Signs Temp 36 C L 09/30/21 09:46 Pulse 51 L 09/30/21 09:46 Resp 18 09/30/21 09:46 BP 131/62 09/30/21 09:46 Pulse Ox 96 09/30/21 09:46 - Orders/Labs/Meds Orders: Active Orders 24 hr Category Date Time Status EKG Documentation Completion [RC] ASDIRECTED Care 09/30/21 09:53 Active Acetaminophen [Tylenol Extra Strength] Med 09/30/21 09:59 Once 1,000 mg PO ONETIME ONE EKG 12 Lead [EK] Routine Ther 09/30/21 09:53 Ordered Departure - Departure Time of Disposition: 10:10 Disposition: Home, Self-Care 01 Condition: Good Clinical Impression: Muscle soreness Instructions: Musculoskeletal Pain Referrals: PCP,None [Primary Care Provider] - Forms: ED Department Discharge Additional Instructions: Acetaminophen as needed. Salazar Mendez or similar product massaged into the area may afford additional relief. Recheck as needed. Sepsis Event Note (ED) - Evaluation Sepsis Screening Result: No Definite Risk - Focused Exam Vital Signs: Vital Signs Temp Pulse Resp BP Pulse Ox 09/30/21 09:46 36 C L 51 L 18 131/62 96 - My Orders Last 24 Hours: My Active Orders 09/30/21 09:53 EKG Documentation Completion [RC] ASDIRECTED EKG 12 Lead [EK] Routine 09/30/21 09:59 Acetaminophen [Tylenol Extra Strength] 1,000 mg PO ONETIME ONE - Assessment/Plan Last 24 Hours: My Active Orders 09/30/21 09:53 EKG Documentation Completion [RC] ASDIRECTED EKG 12 Lead [EK] Routine 09/30/21 09:59 Acetaminophen [Tylenol Extra Strength] 1,000 mg PO ONETIME ONE
[2021-09-30] MEDS ORDERED: Acetaminophen 500 MG Tab PO ONE (09:59)
== END 2021-09-30 10:45 | disposition home or self-care (01) ==
LOC: JP.ED 09:36
DX: M79.10 Myalgia, unspecified site (principal); I25.119 Atherosclerotic heart disease of native coronary artery with unspecified angina pectoris; E78.00 Pure hypercholesterolemia, unspecified; I25.2 Old myocardial infarction; J44.9 Chronic obstructive pulmonary disease, unspecified; K21.9 Gastro-esophageal reflux disease without esophagitis; I12.9 Hypertensive chronic kidney disease with stage 1 through stage 4 chronic kidney disease, or unspecified chronic kidney disease; N18.9 Chronic kidney disease, unspecified; Z72.0 Tobacco use; Z88.0 Allergy status to penicillin; Z88.2 Allergy status to sulfonamides; Z79.02 Long term (current) use of antithrombotics/antiplatelets; Z79.899 Other long term (current) drug therapy
CPT/HCPCS: 99284; A9270

== ENCOUNTER 2021-11-02 04:59 | Inpatient (IN) | payer MEDICARE ==
--- NOTE | 2021-11-02 05:53 | EDM.PDOC ---
<Carlo Silva - Last Filed: 11/02/21 07:10> ED HPI GENERAL MEDICAL PROBLEM - General Chief Complaint: General Stated Complaint: [facility] Time Seen by Provider: 11/02/21 05:15 Source of Information: Reports: Patient, EMS History Limitations: Reports: No Limitations - History of Present Illness INITIAL COMMENTS - FREE TEXT/NARRATIVE: 70-year-old male who was just in the clinic couple of days ago with weakness, shortness of breath and cough, was started on Augmentin, Zithromax and prednisone for bronchitis or pneumonia. He refused a Covid test at that time, he is unvaccinated. Since that time he has had dysuria, incontinence, increased weakness and generalized discomfort. He came in by ambulance. Denies any chills, his main complaint is weakness. Onset: Unknown/Unsure Duration: Day(s): (Dysuria incontinence has been for the last 2 days) Location: Reports: Abdomen (Lower abdominal discomfort), Generalized (Weakness is generalized) Quality: Reports: Ache, Burning Associated Symptoms: Reports: Cough, Loss of Appetite, Malaise, Shortness of Breath, Weakness. Denies: Diaphoresis, Nausea/Vomiting Treatments SUPERVISOR ACCOUNTS RECEIVABLE: Reports: Other (see below) (2 days ago started a prednisone taper, Augmentin and Zithromax) - Related Data Allergies Allergy/AdvReac Type Severity Reaction Status Date / Time Gmaboiu-ORJ-HnZ Reductase Allergy Cannot Verified 11/02/21 05:06 Inhibitor Remember [Igcyzxf-Oww-Frf Reductase Inhibitor] Sulfa (Sulfonamide Allergy Cannot Verified 11/02/21 05:06 Antibiotics) Remember Home Meds: Home Meds Cetirizine HCl [Zyrtec] 10 mg PO DAILY 08/04/20 [History] Cimetidine 300 mg PO BEDTIME 08/04/20 [History] Clopidogrel [Plavix] 75 mg PO DAILY 08/04/20 [History] Gabapentin [Neurontin] 200 mg PO TID 08/04/20 [History] Metoprolol Tartrate 12.5 mg PO BID 08/04/20 [History] Pantoprazole Sodium [Protonix] 40 mg PO ACBREAKFAST 08/04/20 [History] atorvaSTATin Calcium [Lipitor] 20 mg PO BEDTIME 08/04/20 [History] Cholecalciferol (Vitamin D3) [Vitamin D3] 1 tab PO DAILY 07/05/21 [History] Docusate Sodium 100 mg PO DAILY 07/05/21 [History] Multivitamin 1 tab PO DAILY 07/05/21 [History] amLODIPine [Norvasc] 2.5 mg PO DAILY 07/05/21 [History] Alfuzosin [Uroxatral] 10 mg PO DAILY 11/02/21 [History] Amoxicillin/Clavulanate K [Augmentin 875-125 MG] 1 tab PO BID 11/02/21 [History] Azithromycin 500 mg PO DAILY 11/02/21 [History] Finasteride 5 mg PO QPM 11/02/21 [History] predniSONE [Prednisone] 40 mg PO DAILY 11/02/21 [History] Past Medical History HEENT History: Reports: Allergic Rhinitis Cardiovascular History: Reports: Aneurysm, Angina, CAD, High Cholesterol, Hypertension, [place], Other (See Below) Other Cardiovascular History: AAA without rupture. stenosis Respiratory History: Reports: COPD, SOB Gastrointestinal History: Reports: GERD, GI Bleed Genitourinary History: Reports: Chronic Renal Insuffiency, Prostate Disorder, UTI, Recurrent Musculoskeletal History: Reports: Osteoarthritis Neurological History: Reports: Head Trauma, Neuropathy, Peripheral, Other (See Below) Other Neuro History: muscular dystrophy Endocrine/Metabolic History: Reports: Vitamin D Deficiency Hematologic History: Reports: Anemia - Infectious Disease History Infectious Disease History: Reports: Chicken Pox, Measles, Mumps - Past Surgical History Head Surgeries/Procedures: Reports: None Cardiovascular Surgical History: Reports: Coronary Artery Stent Respiratory Surgical History: Reports: None GI Surgical History: Reports: Colonoscopy Neurological Surgical History: Reports: None Musculoskeletal Surgical History: Reports: None Social & Family History - Family History Family Medical History: No Pertinent Family History - Tobacco Use Tobacco Use Status *Q: Heavy Tobacco User Years of Tobacco use: 63 Packs/Tins Daily: 1 - Caffeine Use Caffeine Use: Reports: Coffee - Recreational Drug Use Recreational Drug Use: No ED ROS GENERAL - Review of Systems Review Of Systems: See Below Constitutional: Reports: Malaise, Decreased Appetite. Denies: Fever HEENT: Reports: Rhinitis. Denies: Throat Pain Respiratory: Reports: Shortness of Breath, Cough. Denies: Wheezing Cardiovascular: Denies: Chest Pain, Palpitations GI/Abdominal: Reports: Abdominal Pain. Denies: Constipation, Diarrhea, Vomiting Musculoskeletal: Reports: Muscle Pain (Generalized muscle aches) Skin: Reports: No Symptoms Neurological: Reports: Weakness. Denies: Headache ED EXAM, GENERAL - Physical Exam Exam: See Below Exam Limited By: No Limitations General Appearance: Alert, No Apparent Distress, Other (Looks disheveled, ill) Eye Exam: Bilateral Eye: Normal Inspection Head: Atraumatic Neck: Supple, Non-Tender Respiratory/Chest: Lungs Clear (Diffuse decreased breath sounds but clear lungs) Cardiovascular: Regular Rate, Rhythm, Systolic Murmur (Fairly pronounced systolic murmur). No: Tachycardia GI/Abdominal: Soft, Tender (Does react with some tenderness across the lower abdomen, no focal rebound or guarding) Back Exam: Normal Inspection Extremities: No: Pedal Edema Neurological: Alert, Oriented, No Motor/Sensory Deficits, Other (He does have global weakness) Psychiatric: Normal Affect, Normal Mood Skin Exam: Warm, Dry Course - Re-Assessments/Exams Free Text/Narrative Re-Assessment/Exam: 11/02/21 05:56 Reviewed his clinic records from 3 days ago, he had renal insufficiency and mild vascular congestion on his chest x-ray but no infiltrate. White count was normal. CBC, BMP, Covid panel and lactic acid were drawn today as well as a UA. Bladder scan only revealed 150 cc of urine. My concern is this patient may have Covid. 11/02/21 06:26 White count and hemoglobin are still normal, creatinine is somewhat more elevated but is 4 Plex viral study reveals she has positive Covid. He is a candidate for the monoclonal antibody therapy and he wants to try to go home so that was ordered. Departure - Departure Disposition: Home, Self-Care 01 Clinical Impression: COVID-19, Generalized weakness - Discharge Information Sepsis Event Note (ED) - Evaluation Sepsis Screening Result: No Definite Risk <Leonard De Los Santos - Last Filed: 11/02/21 17:51> ED HPI GENERAL MEDICAL PROBLEM Bilateral Leg Pain Score (Numeric/FACES): 7 Course - Vital Signs Text/Narrative:: Dr. Servin called @ 1008h Last Recorded V/S: Last Vital Signs Temp 37.3 C 11/02/21 14:23 Pulse 77 11/02/21 14:23 Resp 18 11/02/21 14:23 BP 103/65 11/02/21 14:23 Pulse Ox 91 L 11/02/21 14:23 - Orders/Labs/Meds Orders: Active Orders 24 hr Category Date Time Status CULTURE URINE [RM] Stat Lab 11/02/21 13:42 Received Medication Orders Acetaminophen (Acetaminophen 325 Mg Tab) 650 mg PO Q4H PRN PRN Reason: Pain (Mild 1-3)/fever Last Admin: 11/02/21 15:04 Dose: 650 mg Documented by: LAYO Atorvastatin Calcium (Atorvastatin 20 Mg Tab) 20 mg PO BEDTIME [facility] Benzonatate (Benzonatate 100 Mg Cap) 100 mg PO TID PRN PRN Reason: Cough Cetirizine HCl (Cetirizine 10 Mg Tab) 10 mg PO DAILY [facility] Cholecalciferol (Cholecalciferol (Vitamin D3) 25 Mcg Tab) 25 mcg PO DAILY [facility] Clopidogrel Bisulfate (Clopidogrel 75 Mg Tab) 75 mg PO DAILY [facility] Docusate Sodium (Docusate Sodium 100 Mg Cap) 100 mg PO BID [facility] Enoxaparin Sodium (Enoxaparin 40 Mg/0.4 Ml Syringe) 40 mg SUBCUT Q24H [facility] Last Admin: 11/02/21 17:18 Dose: 40 mg Documented by: LAYO Finasteride (Finasteride 5 Mg Tab) 5 mg PO DAILY [facility] Gabapentin (Gabapentin 100 Mg Cap) 200 mg PO TID [facility] Last Admin: 11/02/21 15:04 Dose: 200 mg Documented by: LAYO Guaifenesin/Dextromethorphan (Guaifenesin/Dextromethorphan 100-10 Mg/5 Ml Soln 10 Ml Cup) 10 ml PO Q4H PRN PRN Reason: Cough Lorazepam (Lorazepam 2 Mg/Ml Sdv) 0.5 mg IVPUSH Q4H PRN PRN Reason: Nausea/Vomiting Magnesium Hydroxide (Magnesium Hydroxide 400 Mg/5 Ml Susp 30 Ml Cup) 30 ml PO Q12H PRN PRN Reason: Constipation Melatonin (Melatonin 3 Mg Tab) 9 mg PO BEDTIME PRN PRN Reason: Sleep Multivitamins/Minerals (Multivitamins With Iron/Calcium/Folic Acid/Minerals Tab) 1 tab PO DAILY [facility] Ondansetron HCl (Ondansetron 4 Mg/2 Ml Sdv) 4 mg IV Q6H PRN PRN Reason: Nausea/Vomiting Ondansetron HCl (Ondansetron 4 Mg Tab.Dis) 4 mg PO Q6H PRN PRN Reason: Nausea able to take PO Pantoprazole Sodium (Pantoprazole 40 Mg Tab.Cr) 40 mg PO ACBREAKFAST RJ Senna/Docusate Sodium (Docusate Sodium/Sennosides 50-8.6 Mg Tab) 1 tab PO BID PRN PRN Reason: Constipation Labs: Laboratory Tests 11/02/21 11/02/21 11/02/21 Range/Units 05:32 05:48 05:48 WBC (4.5-11.0) K/uL RBC (4.30-5.90) M/uL Hgb (12.0-15.0) g/dL Hct (40.0-54.0) % MCV (80-98) fL MCH (27-31) pg MCHC (32-36) % Plt Count (150-400) K/uL Neut % (Auto) (36-66) % Lymph % (Auto) (24-44) % [place] % (Auto) (2-6) % Eos % (Auto) (2-4) % Baso % (Auto) (0-1) % D-Dimer, Quantitative 3760.25 H (0.0-500.0) ng/mL Sodium (140-148) mmol/L Potassium (3.6-5.2) mmol/L Chloride (100-108) mmol/L Carbon Dioxide (21-32) mmol/L Anion Gap (5.0-14.0) mmol/L BUN (7-18) mg/dL Creatinine (0.8-1.3) mg/dL Est Cr Clr Drug Dosing mL/min Estimated GFR (MDRD) (>60) Glucose (74-106) mg/dL Lactic Acid (0.4-2.0) mmol/L Calcium (8.5-10.1) mg/dL Troponin I High Sens (<=60.3) pg/mL C-Reactive Protein 3.10 H (0.0-0.3) mg/dL Urine Color (YELLOW) Urine Appearance (CLEAR) Urine pH (5.0-8.0) Ur Specific [place] (1.008-1.030) Urine Protein (NEGATIVE) mg/dL Urine Glucose (UA) (NEGATIVE) mg/dL Urine Ketones (NEGATIVE) mg/dL Urine Occult Blood (NEGATIVE) Urine Nitrite (NEGATIVE) Urine Bilirubin (NEGATIVE) Urine Urobilinogen (0.2-1.0) EU/dL Ur Leukocyte Esterase (NEGATIVE) Urine RBC (0-5) Urine WBC (0-5) Ur Epithelial Cells Amorphous Sediment Urine Bacteria Urine Mucus Urine Other Influenza Type A RNA Negative (NEGATIVE) RSV RNA (INAAT) Negative (NEGATIVE) Influenza Type B RNA Negative (NEGATIVE) SARS-CoV-2 RNA (CARMINE) Positive H (NEGATIVE) 11/02/21 11/02/21 11/02/21 Range/Units 05:51 05:51 05:51 WBC 9.1 (4.5-11.0) K/uL RBC 4.68 (4.30-5.90) M/uL Hgb 14.4 (12.0-15.0) g/dL Hct 43.3 (40.0-54.0) % MCV 93 (80-98) fL MCH 31 (27-31) pg MCHC 33 (32-36) % Plt Count 165 (150-400) K/uL Neut % (Auto) 79.4 H (36-66) % Lymph % (Auto) 11.3 L (24-44) % [place] % (Auto) 9.0 H (2-6) % Eos % (Auto) 0.1 L (2-4) % Baso % (Auto) 0.2 (0-1) % D-Dimer, Quantitative (0.0-500.0) ng/mL Sodium 139 L (140-148) mmol/L Potassium 3.6 (3.6-5.2) mmol/L Chloride 102 (100-108) mmol/L Carbon Dioxide 24 (21-32) mmol/L Anion Gap 16.6 H (5.0-14.0) mmol/L BUN 24 H (7-18) mg/dL Creatinine 2.4 H (0.8-1.3) mg/dL Est Cr Clr Drug Dosing 30.34 mL/min Estimated GFR (MDRD) 27 L (>60) Glucose 96 (74-106) mg/dL Lactic Acid (0.4-2.0) mmol/L Calcium 8.5 (8.5-10.1) mg/dL Troponin I High Sens 88.7 H* (<=60.3) pg/mL C-Reactive Protein (0.0-0.3) mg/dL Urine Color (YELLOW) Urine Appearance (CLEAR) Urine pH (5.0-8.0) Ur Specific [place] (1.008-1.030) Urine Protein (NEGATIVE) mg/dL Urine Glucose (UA) (NEGATIVE) mg/dL Urine Ketones (NEGATIVE) mg/dL Urine Occult Blood (NEGATIVE) Urine Nitrite (NEGATIVE) Urine Bilirubin (NEGATIVE) Urine Urobilinogen (0.2-1.0) EU/dL Ur Leukocyte Esterase (NEGATIVE) Urine RBC (0-5) Urine WBC (0-5) Ur Epithelial Cells Amorphous Sediment Urine Bacteria Urine Mucus Urine Other Influenza Type A RNA (NEGATIVE) RSV RNA (INAAT) (NEGATIVE) Influenza Type B RNA (NEGATIVE) SARS-CoV-2 RNA (CARMINE) (NEGATIVE) 11/02/21 11/02/21 Range/Units 05:54 05:55 WBC (4.5-11.0) K/uL RBC (4.30-5.90) M/uL Hgb (12.0-15.0) g/dL Hct (40.0-54.0) % MCV (80-98) fL MCH (27-31) pg MCHC (32-36) % Plt Count (150-400) K/uL Neut % (Auto) (36-66) % Lymph % (Auto) (24-44) % [place] % (Auto) (2-6) % Eos % (Auto) (2-4) % Baso % (Auto) (0-1) % D-Dimer, Quantitative (0.0-500.0) ng/mL Sodium (140-148) mmol/L Potassium (3.6-5.2) mmol/L Chloride (100-108) mmol/L Carbon Dioxide (21-32) mmol/L Anion Gap (5.0-14.0) mmol/L BUN (7-18) mg/dL Creatinine (0.8-1.3) mg/dL Est Cr Clr Drug Dosing mL/min Estimated GFR (MDRD) (>60) Glucose (74-106) mg/dL Lactic Acid 2.0 (0.4-2.0) mmol/L Calcium (8.5-10.1) mg/dL Troponin I High Sens (<=60.3) pg/mL C-Reactive Protein (0.0-0.3) mg/dL Urine Color Yellow (YELLOW) Urine Appearance Clear (CLEAR) Urine pH 5.5 (5.0-8.0) Ur Specific [place] 1.025 (1.008-1.030) Urine Protein 30 H (NEGATIVE) mg/dL Urine Glucose (UA) Negative (NEGATIVE) mg/dL Urine Ketones Negative (NEGATIVE) mg/dL Urine Occult Blood Moderate H (NEGATIVE) Urine Nitrite Negative (NEGATIVE) Urine Bilirubin Negative (NEGATIVE) Urine Urobilinogen 0.2 (0.2-1.0) EU/dL Ur Leukocyte Esterase Negative (NEGATIVE) Urine RBC 10-20 H (0-5) Urine WBC 0-5 (0-5) Ur Epithelial Cells Moderate Amorphous Sediment Moderate Urine Bacteria Moderate Urine Mucus Many Urine Other See note Influenza Type A RNA (NEGATIVE) RSV RNA (INAAT) (NEGATIVE) Influenza Type B RNA (NEGATIVE) SARS-CoV-2 RNA (CARMINE) (NEGATIVE) Meds: Medications Generic Name Dose Route Start Last Admin Trade Name Freq PRN Reason Stop Dose Admin Acetaminophen 650 mg 11/02/21 14:23 11/02/21 15:04 Acetaminophen 325 Mg Tab PO 650 mg Q4H PRN Administration Pain (Mild 1-3)/fever Atorvastatin Calcium 20 mg 11/02/21 21:00 Atorvastatin 20 Mg Tab PO BEDTIME RJ Benzonatate 100 mg 11/02/21 14:23 Benzonatate 100 Mg Cap PO TID PRN Cough Cetirizine HCl 10 mg 11/03/21 09:00 Cetirizine 10 Mg Tab PO DAILY [facility] Cholecalciferol 25 mcg 11/03/21 09:00 Cholecalciferol (Vitamin D3) 25 Mcg Tab PO DAILY [facility] Clopidogrel Bisulfate 75 mg 11/03/21 09:00 Clopidogrel 75 Mg Tab PO DAILY [facility] Docusate Sodium 100 mg 11/02/21 21:00 Docusate Sodium 100 Mg Cap PO BID RJ Enoxaparin Sodium 40 mg 11/02/21 17:00 11/02/21 17:18 Enoxaparin 40 Mg/0.4 Ml Syringe SUBCUT 40 mg Q24H RJ Administration Finasteride 5 mg 11/03/21 09:00 Finasteride 5 Mg Tab PO DAILY RJ Gabapentin 200 mg 11/02/21 14:23 11/02/21 15:04 Gabapentin 100 Mg Cap PO 200 mg TID RJ Administration Guaifenesin/Dextromethorphan 10 ml 11/02/21 14:23 Guaifenesin/Dextromethorphan 100-10 Mg/5 Ml Soln 10 Ml Cup PO Q4H PRN Cough Lorazepam 0.5 mg 11/02/21 14:23 Lorazepam 2 Mg/Ml Sdv IVPUSH Q4H PRN Nausea/Vomiting Magnesium Hydroxide 30 ml 11/02/21 14:23 Magnesium Hydroxide 400 Mg/5 Ml Susp 30 Ml Cup PO Q12H PRN Constipation Melatonin 9 mg 11/02/21 14:23 Melatonin 3 Mg Tab PO BEDTIME PRN Sleep Multivitamins/Minerals 1 tab 11/03/21 09:00 Multivitamins With Iron/Calcium/Folic Acid/Minerals Tab PO DAILY RJ Ondansetron HCl 4 mg 11/02/21 14:23 Ondansetron 4 Mg/2 Ml Sdv IV Q6H PRN Nausea/Vomiting Ondansetron HCl 4 mg 11/02/21 14:23 Ondansetron 4 Mg Tab.Dis PO Q6H PRN Nausea able to take PO Pantoprazole Sodium 40 mg 11/03/21 07:30 Pantoprazole 40 Mg Tab.Cr PO ACBREAKFAST RJ Senna/Docusate Sodium 1 tab 11/02/21 14:23 Docusate Sodium/Sennosides 50-8.6 Mg Tab PO BID PRN Constipation Discontinued Medications Generic Name Dose Route Start Last Admin Trade Name Freq PRN Reason Stop Dose Admin Acetaminophen 650 mg 11/02/21 09:00 Acetaminophen 325 Mg Tab PO 11/02/21 20:00 ONETIME PRN HEADACHE,CHILLS Acetaminophen 1,000 mg 11/02/21 11:29 11/02/21 11:35 Acetaminophen 500 Mg Tab PO 11/02/21 11:30 1,000 mg ONETIME ONE Administration Diphenhydramine HCl 50 mg 11/02/21 09:00 Diphenhydramine 50 Mg/Ml Sdv IVPUSH 11/02/21 20:00 ONETIME PRN ALLERGIC RXN Epinephrine HCl 0.3 mg 11/02/21 09:00 Epinephrine 1 Mg/Ml Sdv IM 11/02/21 20:00 ONETIME PRN ALLERGIC RXN Famotidine 20 mg 11/02/21 09:00 Famotidine 20 Mg/2 Ml Sdv IV 11/02/21 20:00 ONETIME PRN ALLERGIC RXN Methylprednisolone Sodium Succinate 125 mg 11/02/21 09:00 Methylprednisolone Sodium Succinate 125 Mg/2 Ml Sdv IVPUSH 11/02/21 20:00 ONETIME PRN ALLERGIC RXN - Re-Assessments/Exams Free Text/Narrative Re-Assessment/Exam: 11/02/21 10:09 thought he would be immediately better after his BAM treatment. Is still unable to even sit unassisted. Lives alone. Will need admission. Departure - Departure Time of Disposition: 14:30 Sepsis Event Note (ED) - Focused Exam Vital Signs: Vital Signs Temp Temp Pulse Resp BP Pulse Ox 11/02/21 13:08 96 100/68 91 L 11/02/21 12:40 102 H 90/73 90 L 11/02/21 12:31 37.1 C 62 22 H 132/69 95 11/02/21 12:05 37.1 C 11/02/21 11:35 39.1 C H 11/02/21 11:31 39.1 C H 91 146/62 H 92 L 11/02/21 11:03 91 127/62 92 L
[2021-11-02 06:10] LABS: CORONAVIRUS COVID-19 NAA POSITIVE (NEGATIVE)
[2021-11-02] MEDS ORDERED: EPINEPHrine 1 MG/ML SDV IM PRN (09:00)
[2021-11-02] MEDS ORDERED: diphenhydrAMINE 50 MG/ML SDV IVPUSH PRN (09:00)
[2021-11-02] MEDS ORDERED: Acetaminophen 325 MG Tab PO PRN (09:00)
[2021-11-02] MEDS ORDERED: methylPREDNISolone Sodium Succinate 125 MG/2 ML SDV IVPUSH PRN (09:00)
[2021-11-02] MEDS ORDERED: Famotidine 20 MG/2 ML SDV IV PRN (09:00)
[2021-11-02] MEDS ORDERED: Acetaminophen 500 MG Tab PO ONE (11:29)
--- NOTE | 2021-11-02 13:46 | PCM.HP.2 ---
H&P History of Present Illness - General Date of Service: 11/02/21 Admit Problem/Dx: Admission Diagnosis/Problem Admission Diagnosis/Problem Weakness Source of Information: Patient, Provider History Limitations: Reports: No Limitations - History of Present Illness Initial Comments - Free Text/Narative: CC: I'm weak HPI: Michele presents to the emergency room today with progressive weakness, fatigue, anorexia and some dyspnea. He reports that he first noticed symptoms about 9 or 10 days ago. He felt off and felt weak and did not have much of an appetite. He did develop some nasal congestion but did not have a sore throat or cough. No significant fevers. He was seen at the walk-in clinic a few days ago and declined Covid testing but was started on antibiotics and steroids for possible sinus infection. After receiving notes he has steadily declined with increases in especially his strength and energy. He is so weak that he cannot even sit up at this time. He has some nausea but no significant diarrhea. Oral intake has been declining over the past couple of days. No headaches or muscle aches. He was so weak today that he came in for evaluation. Work-up in the emergency room did reveal that he was Covid positive. Laboratory studies were fairly unremarkable otherwise. The patient was agreeable to monoclonal antibodies. He was hoping to go home afterwards but he was too weak to even sit up in bed so he will be admitted for observation and strengthening. Bilateral Leg Pain Score (Numeric/FACES): 7 - Related Data Allergies/Adverse Reactions: Allergies Allergy/AdvReac Type Severity Reaction Status Date / Time Cavdghd-WST-CtV Reductase Allergy Cannot Verified 11/02/21 05:06 Inhibitor Remember [Kmlofcb-Dqg-Xrl Reductase Inhibitor] Sulfa (Sulfonamide Allergy Cannot Verified 11/02/21 05:06 Antibiotics) Remember Home Medications: Home Meds Cetirizine HCl [Zyrtec] 10 mg PO DAILY 08/04/20 [History] Cimetidine 300 mg PO BEDTIME 08/04/20 [History] Clopidogrel [Plavix] 75 mg PO DAILY 08/04/20 [History] Gabapentin [Neurontin] 200 mg PO TID 08/04/20 [History] Metoprolol Tartrate 12.5 mg PO BID 08/04/20 [History] Pantoprazole Sodium [Protonix] 40 mg PO ACBREAKFAST 08/04/20 [History] atorvaSTATin Calcium [Lipitor] 20 mg PO BEDTIME 08/04/20 [History] Cholecalciferol (Vitamin D3) [Vitamin D3] 1 tab PO DAILY 07/05/21 [History] Docusate Sodium 100 mg PO DAILY 07/05/21 [History] Multivitamin 1 tab PO DAILY 07/05/21 [History] amLODIPine [Norvasc] 2.5 mg PO DAILY 07/05/21 [History] Alfuzosin [Uroxatral] 10 mg PO DAILY 11/02/21 [History] Amoxicillin/Clavulanate K [Augmentin 875-125 MG] 1 tab PO BID 11/02/21 [History] Azithromycin 500 mg PO DAILY 11/02/21 [History] Finasteride 5 mg PO QPM 11/02/21 [History] predniSONE [Prednisone] 40 mg PO DAILY 11/02/21 [History] Past Medical History HEENT History: Reports: Allergic Rhinitis Cardiovascular History: Reports: Aneurysm, Angina, CAD, High Cholesterol, Hypertension, GA, Other (See Below) Other Cardiovascular History: AAA without rupture. stenosis Respiratory History: Reports: COPD, SOB Gastrointestinal History: Reports: GERD, GI Bleed Genitourinary History: Reports: Chronic Renal Insuffiency, Prostate Disorder, UTI, Recurrent Musculoskeletal History: Reports: Osteoarthritis Neurological History: Reports: Head Trauma, Neuropathy, Peripheral, Other (See Below) Other Neuro History: muscular dystrophy Endocrine/Metabolic History: Reports: Vitamin D Deficiency Hematologic History: Reports: Anemia - Infectious Disease History Infectious Disease History: Reports: Chicken Pox, Measles, Mumps - Past Surgical History Head Surgeries/Procedures: Reports: None Cardiovascular Surgical History: Reports: Coronary Artery Stent Respiratory Surgical History: Reports: None GI Surgical History: Reports: Colonoscopy Neurological Surgical History: Reports: None Musculoskeletal Surgical History: Reports: None Social & Family History - Family History Family Medical History: No Pertinent Family History - Tobacco Use Tobacco Use Status *Q: Heavy Tobacco User Years of Tobacco use: 63 Packs/Tins Daily: 1 - Caffeine Use Caffeine Use: Reports: Coffee - Alcohol Use Alcohol Use History: No Alcohol Use in Last Twelve Months: No - Recreational Drug Use Recreational Drug Use: No H&P Review of Systems - Review of Systems: Review Of Systems: See Below Free Text/Narrative: A complete 12 point review of systems was obtained. Pertinent positives and negatives are noted in the history of present illness. All other systems were reviewed and were negative except as noted. Exam - Exam Exam: See Below - Vital Signs Vital Signs: Last Vital Signs Temp 37.1 C 11/02/21 12:31 Pulse 96 11/02/21 13:08 Resp 22 H 11/02/21 12:31 BP 100/68 11/02/21 13:08 Pulse Ox 91 L 11/02/21 13:08 Weight: 77.111 kg - Exam Quality Assessment: No: Supplemental Oxygen General: Alert, Oriented, Cooperative, Mild Distress HEENT: Conjunctiva Clear. No: Mucosa Moist & [place] (Dry), Scleral Icterus Neck: Supple, Trachea Midline Lungs: Clear to Auscultation, Normal Respiratory Effort Cardiovascular: Regular Rhythm, Tachycardia, Systolic Murmur (Best at apex) GI/Abdominal Exam: Normal Bowel Sounds, Soft, No Distention Back Exam: Normal Inspection. No: Full Range of Motion Extremities: No Pedal Edema. No: Joint Swelling Peripheral Pulses: 2+: Dorsalis Pedis (L), Dorsalis Pedis (R) Skin: Warm, Dry Neuro Extensive - Mental Status: Alert, Oriented x3, Nl Response to Commands Neuro Extensive - Motor, Sensory, Reflexes: No: Dysarthria, Abnormal Motor, Tremor Psychiatric: Alert, Normal Affect - Patient Data Lab Results Last 24 hrs: Laboratory Results - last 24 hr 11/02/21 11/02/21 11/02/21 Range/Units 05:32 05:51 05:51 WBC 9.1 (4.5-11.0) K/uL RBC 4.68 (4.30-5.90) M/uL Hgb 14.4 (12.0-15.0) g/dL Hct 43.3 (40.0-54.0) % MCV 93 (80-98) fL MCH 31 (27-31) pg MCHC 33 (32-36) % Plt Count 165 (150-400) K/uL Neut % (Auto) 79.4 H (36-66) % Lymph % (Auto) 11.3 L (24-44) % [place] % (Auto) 9.0 H (2-6) % Eos % (Auto) 0.1 L (2-4) % Baso % (Auto) 0.2 (0-1) % Sodium 139 L (140-148) mmol/L Potassium 3.6 (3.6-5.2) mmol/L Chloride 102 (100-108) mmol/L Carbon Dioxide 24 (21-32) mmol/L Anion Gap 16.6 H (5.0-14.0) mmol/L BUN 24 H (7-18) mg/dL Creatinine 2.4 H (0.8-1.3) mg/dL Est Cr Clr Drug Dosing 30.34 mL/min Estimated GFR (MDRD) 27 L (>60) Glucose 96 (74-106) mg/dL Lactic Acid (0.4-2.0) mmol/L Calcium 8.5 (8.5-10.1) mg/dL Troponin I High Sens (<=60.3) pg/mL Urine Color (YELLOW) Urine Appearance (CLEAR) Urine pH (5.0-8.0) Ur Specific [place] (1.008-1.030) Urine Protein (NEGATIVE) mg/dL Urine Glucose (UA) (NEGATIVE) mg/dL Urine Ketones (NEGATIVE) mg/dL Urine Occult Blood (NEGATIVE) Urine Nitrite (NEGATIVE) Urine Bilirubin (NEGATIVE) Urine Urobilinogen (0.2-1.0) EU/dL Ur Leukocyte Esterase (NEGATIVE) Urine RBC (0-5) Urine WBC (0-5) Ur Epithelial Cells Amorphous Sediment Urine Bacteria Urine Mucus Urine Other Influenza Type A RNA Negative (NEGATIVE) RSV RNA (INAAT) Negative (NEGATIVE) Influenza Type B RNA Negative (NEGATIVE) SARS-CoV-2 RNA (CARMINE) Positive H (NEGATIVE) 11/02/21 11/02/21 11/02/21 Range/Units 05:51 05:54 05:55 WBC (4.5-11.0) K/uL RBC (4.30-5.90) M/uL Hgb (12.0-15.0) g/dL Hct (40.0-54.0) % MCV (80-98) fL MCH (27-31) pg MCHC (32-36) % Plt Count (150-400) K/uL Neut % (Auto) (36-66) % Lymph % (Auto) (24-44) % [place] % (Auto) (2-6) % Eos % (Auto) (2-4) % Baso % (Auto) (0-1) % Sodium (140-148) mmol/L Potassium (3.6-5.2) mmol/L Chloride (100-108) mmol/L Carbon Dioxide (21-32) mmol/L Anion Gap (5.0-14.0) mmol/L BUN (7-18) mg/dL Creatinine (0.8-1.3) mg/dL Est Cr Clr Drug Dosing mL/min Estimated GFR (MDRD) (>60) Glucose (74-106) mg/dL Lactic Acid 2.0 (0.4-2.0) mmol/L Calcium (8.5-10.1) mg/dL Troponin I High Sens 88.7 H* (<=60.3) pg/mL Urine Color Yellow (YELLOW) Urine Appearance Clear (CLEAR) Urine pH 5.5 (5.0-8.0) Ur Specific [place] 1.025 (1.008-1.030) Urine Protein 30 H (NEGATIVE) mg/dL Urine Glucose (UA) Negative (NEGATIVE) mg/dL Urine Ketones Negative (NEGATIVE) mg/dL Urine Occult Blood Moderate H (NEGATIVE) Urine Nitrite Negative (NEGATIVE) Urine Bilirubin Negative (NEGATIVE) Urine Urobilinogen 0.2 (0.2-1.0) EU/dL Ur Leukocyte Esterase Negative (NEGATIVE) Urine RBC 10-20 H (0-5) Urine WBC 0-5 (0-5) Ur Epithelial Cells Moderate Amorphous Sediment Moderate Urine Bacteria Moderate Urine Mucus Many Urine Other See note Influenza Type A RNA (NEGATIVE) RSV RNA (INAAT) (NEGATIVE) Influenza Type B RNA (NEGATIVE) SARS-CoV-2 RNA (CARMINE) (NEGATIVE) Result Diagrams: 11/02/21 05:51 11/02/21 05:51 Sepsis Event Note - Evaluation Sepsis Screening Result: No Definite Risk - Focused Exam Vital Signs: Vital Signs Temp Temp Pulse Resp BP Pulse Ox 11/02/21 13:08 96 100/68 91 L 11/02/21 12:40 102 H 90/73 90 L 11/02/21 12:31 37.1 C 62 22 H 132/69 95 11/02/21 12:05 37.1 C 11/02/21 11:35 39.1 C H 11/02/21 11:31 39.1 C H 91 146/62 H 92 L 11/02/21 11:03 91 127/62 92 L 11/02/21 05:02 37.4 C 105 H 20 137/88 93 L *Q Meaningful Use (ADM) - VTE Risk Assess *Q Each Risk Factor Represents 1 Point: Abnormal Pulmonary Function (COPD) Total Score 1 Point Risk Factors: 1 Each Risk Factor Represents 2 Points: Age 60 - 74 Years Total Score 2 Point Risk Factors: 2 Each Risk Factor Represents 3 Points: None Total Score 3 Point Risk Factors: 0 Each Risk Factor Represents 5 Points: None Total Score 5 Point Risk Factors: 0 Venous Thromboembolism Risk Factor Score *Q: 3 - Problem List (1) COVID-19 SNOMED Code(s): 022815315 ICD Code: U07.1 - COVID-19 Status: Acute Current Visit: Yes (2) Generalized weakness SNOMED Code(s): 64650023 ICD Code: R53.1 - WEAKNESS Status: Acute Current Visit: Yes (3) CAD (coronary artery disease) SNOMED Code(s): 62452868 ICD Code: I25.10 - ATHSCL HEART DISEASE OF [place] CORONARY ARTERY W/O ANG PCTRS Status: Chronic Current Visit: No Qualifiers: Coronary Disease-Associated Artery/Lesion type: [place] artery [place] vs. transplanted heart: [place] heart Associated angina: without angina Qualified Code(s): I25.10 - Atherosclerotic heart disease of [place] coronary artery without angina pectoris (4) Muscular dystrophy SNOMED Code(s): 06758333 ICD Code: G71.00 - MUSCULAR DYSTROPHY, UNSPECIFIED Status: Chronic Current Visit: No (5) CKD (chronic kidney disease), stage III SNOMED Code(s): 078959241 ICD Code: N18.30 - CHRONIC KIDNEY DISEASE, STAGE 3 UNSPECIFIED Status: Chronic Current Visit: No Qualifiers: Chronic kidney disease stage 3 subtype: stage 3b (GFR 30-44) Qualified Code(s): N18.32 - Chronic kidney disease, stage 3b Problem List Initiated/Reviewed/Updated: Yes Orders Last 24hrs: Active Orders 24 hr Category Date Time Status Patient Status Manage Transfer [TRANSFER] Routine ADT 11/02/21 13:38 Ordered C-REACTIVE PROTEIN [CHEM] Stat Lab 11/02/21 05:48 Received CULTURE URINE [RM] Stat Lab 11/02/21 13:42 Received D-DIMER QUANTITATIVE [COAG] Stat Lab 11/02/21 05:48 Received Acetaminophen [TylenoL] Med 11/02/21 09:00 Active 650 mg PO ONETIME PRN EPINEPHrine [Adrenalin] Med 11/02/21 09:00 Active 0.3 mg IM ONETIME PRN Famotidine [Pepcid] Med 11/02/21 09:00 Active 20 mg IV ONETIME PRN diphenhydrAMINE [Benadryl] Med 11/02/21 09:00 Active 50 mg IVPUSH ONETIME PRN methylPREDNISolone Sod Succ [Solu-MEDROL] Med 11/02/21 09:00 Active 125 mg IVPUSH ONETIME PRN Isolation [COMM] Stat Oth 11/02/21 05:28 Ordered Resuscitation Status Routine Resus Stat 11/02/21 13:40 Ordered Medication Orders Acetaminophen (Acetaminophen 325 Mg Tab) 650 mg PO ONETIME PRN PRN Reason: HEADACHE,CHILLS Stop: 11/02/21 20:00 Diphenhydramine HCl (Diphenhydramine 50 Mg/Ml Sdv) 50 mg IVPUSH ONETIME PRN PRN Reason: ALLERGIC RXN Stop: 11/02/21 20:00 Epinephrine HCl (Epinephrine 1 Mg/Ml Sdv) 0.3 mg IM ONETIME PRN PRN Reason: ALLERGIC RXN Stop: 11/02/21 20:00 Famotidine (Famotidine 20 Mg/2 Ml Sdv) 20 mg IV ONETIME PRN PRN Reason: ALLERGIC RXN Stop: 11/02/21 20:00 Methylprednisolone Sodium Succinate (Methylprednisolone Sodium Succinate 125 Mg/ 2 Ml Sdv) 125 mg IVPUSH ONETIME PRN PRN Reason: ALLERGIC RXN Stop: 11/02/21 20:00 Assessment/Plan Comment:: ASSESSMENT AND PLAN - COVID-19 infection-very miserable with symptoms and extremely weak. Symptom onset about 10/23. He is not safe for outpatient management because of his weakness. He did receive monoclonal antibodies in the emergency room prior to admission. He is at a risk for progression given his vascular disease and lung disease but so far is stable. -Symptomatic management of nausea, pain -Physical therapy for strengthening -initiate treatment for pneumonia if respiratory status declines -Isolation precautions Coronary artery disease-history of NSTEMI and stenting. No active angina. -Continue medical management Stage IIIb chronic kidney disease-creatinine slightly elevated from baseline. -Encourage oral intake Muscular dystrophy-dependent on wheelchair or scooter to get around. Maintenance issues - -DVT prophylaxis-enoxaparin -GI prophylaxis-PPI -Nutrition-regular -Guerrero catheter-not indicated CODE STATUS -full code Admission justification -this patient will be admitted for inpatient services and is medically appropriate meeting medical necessity for inpatient admission as outlined in my documentation. I reasonably expect the patient will require inpatient services that span a period time over 2 midnights. I reasonably expect this patient to be discharged or transferred within 96 hours after admission to the [facility]. Disposition -I anticipate discharge home after the hospital stay Primary care physician -Dr. Rogelio Servin M.D. - Mortality Measure Prognosis:: Good
[2021-11-02] MEDS ORDERED: Benzonatate 100 MG Cap PO PRN (14:23)
[2021-11-02] MEDS ORDERED: Magnesium Hydroxide 400 MG/5 ML Susp 30 ML Cup PO PRN (14:23)
[2021-11-02] MEDS ORDERED: Ondansetron 4 MG/2 ML SDV IV PRN (14:23)
[2021-11-02] MEDS ORDERED: LORazepam 2 MG/ML SDV IVPUSH PRN (14:23)
[2021-11-02] MEDS ORDERED: Ondansetron 4 MG Tab.DIS PO PRN (14:23)
[2021-11-02] MEDS ORDERED: guaiFENesin/Dextromethorphan 100-10 MG/5 ML Soln 10 ML Cup PO PRN (14:23)
[2021-11-02] MEDS: Acetaminophen 325 MG Tab PO PRN ×2 (15:04→22:59)
[2021-11-02] MEDS: Gabapentin 100 MG Cap PO SCH ×2 (15:04→20:36)
[2021-11-02] MEDS: Enoxaparin 40 MG/0.4 ML Syringe SUBCUT SCH (17:18)
[2021-11-02] MEDS: atorvaSTATin 20 MG Tab PO SCH (20:36)
[2021-11-02] MEDS: Docusate Sodium 100 MG Cap PO SCH (20:36)
[2021-11-02] MEDS: Melatonin 3 MG Tab PO PRN (22:13)
[2021-11-03] MEDS ORDERED: Ibuprofen 600 MG Tab PO ONE ×2 (00:09→23:02)
[2021-11-03] MEDS: Acetaminophen 325 MG Tab PO PRN ×3 (03:04→20:39)
[2021-11-03] MEDS: Pantoprazole 40 MG Tab.CR PO SCH (07:49)
[2021-11-03] MEDS: Gabapentin 100 MG Cap PO SCH ×3 (08:44→20:39)
[2021-11-03] MEDS: Cetirizine 10 MG Tab PO SCH (08:44)
[2021-11-03] MEDS: Cholecalciferol (Vitamin D3) 25 MCG Tab PO SCH (08:44)
[2021-11-03] MEDS: Clopidogrel 75 MG Tab PO SCH (08:45)
[2021-11-03] MEDS: Multivitamins with Iron/Calcium/Folic Acid/Minerals Tab PO SCH (08:45)
[2021-11-03] MEDS: Docusate Sodium 100 MG Cap PO SCH ×3 (08:45→20:45)
[2021-11-03] MEDS ORDERED: Finasteride 5 MG Tab PO SCH ×2 (09:00→17:00)
--- NOTE | 2021-11-03 13:20 | PCM.PN ---
- General Info Date of Service: 11/03/21 Subjective Update: No acute events overnight. Patient feels a little better today but is still weak. Energy is slightly better. Appetite is slightly better. He feels like he should be able to go home but is having trouble finding a ride. He did have a fever this afternoon. No nausea or vomiting. No diarrhea. - Patient Data Vitals - Most Recent: Last Vital Signs Temp 36.7 C 11/03/21 10:51 Pulse 84 11/03/21 10:51 Resp 18 11/03/21 10:51 BP 125/58 L 11/03/21 10:51 Pulse Ox 94 L 11/03/21 10:51 Weight - Most Recent: 77.111 kg I&O - Last 24 Hours: Intake & Output 11/02/21 11/03/21 11/03/21 22:59 06:59 14:59 Intake Total 540 Output Total 100 300 Balance -100 240 Lab Results Last 24 Hours: Laboratory Results - last 24 hr 11/02/21 11/02/21 Range/Units 05:48 05:48 D-Dimer, Quantitative 3760.25 H (0.0-500.0) ng/mL C-Reactive Protein 3.10 H (0.0-0.3) mg/dL Med Orders - Current: Current Medications Acetaminophen (Acetaminophen 325 Mg Tab) 650 mg PO Q4H PRN PRN Reason: Pain (Mild 1-3)/fever Last Admin: 11/03/21 03:04 Dose: 650 mg Documented by: Atorvastatin Calcium (Atorvastatin 20 Mg Tab) 20 mg PO BEDTIME [facility] Last Admin: 11/02/21 20:36 Dose: 20 mg Documented by: Benzonatate (Benzonatate 100 Mg Cap) 100 mg PO TID PRN PRN Reason: Cough Cetirizine HCl (Cetirizine 10 Mg Tab) 10 mg PO DAILY [facility] Last Admin: 11/03/21 08:44 Dose: 10 mg Documented by: Cholecalciferol (Cholecalciferol (Vitamin D3) 25 Mcg Tab) 25 mcg PO DAILY [facility] Last Admin: 11/03/21 08:44 Dose: 25 mcg Documented by: Clopidogrel Bisulfate (Clopidogrel 75 Mg Tab) 75 mg PO DAILY [facility] Last Admin: 11/03/21 08:45 Dose: 75 mg Documented by: Docusate Sodium (Docusate Sodium 100 Mg Cap) 100 mg PO BID [facility] Last Admin: 11/03/21 08:45 Dose: 100 mg Documented by: Enoxaparin Sodium (Enoxaparin 40 Mg/0.4 Ml Syringe) 40 mg SUBCUT Q24H [facility] Last Admin: 11/02/21 17:18 Dose: 40 mg Documented by: Finasteride (Finasteride 5 Mg Tab) 5 mg PO DAILY [facility] Last Admin: 11/03/21 08:45 Dose: 5 mg Documented by: Gabapentin (Gabapentin 100 Mg Cap) 200 mg PO TID [facility] Last Admin: 11/03/21 08:44 Dose: 200 mg Documented by: Guaifenesin/Dextromethorphan (Guaifenesin/Dextromethorphan 100-10 Mg/5 Ml Soln 10 Ml Cup) 10 ml PO Q4H PRN PRN Reason: Cough Lorazepam (Lorazepam 2 Mg/Ml Sdv) 0.5 mg IVPUSH Q4H PRN PRN Reason: Nausea/Vomiting Magnesium Hydroxide (Magnesium Hydroxide 400 Mg/5 Ml Susp 30 Ml Cup) 30 ml PO Q12H PRN PRN Reason: Constipation Melatonin (Melatonin 3 Mg Tab) 9 mg PO BEDTIME PRN PRN Reason: Sleep Last Admin: 11/02/21 22:13 Dose: 9 mg Documented by: Multivitamins/Minerals (Multivitamins With Iron/Calcium/Folic Acid/Minerals Tab) 1 tab PO DAILY [facility] Last Admin: 11/03/21 08:45 Dose: 1 tab Documented by: Ondansetron HCl (Ondansetron 4 Mg/2 Ml Sdv) 4 mg IV Q6H PRN PRN Reason: Nausea/Vomiting Ondansetron HCl (Ondansetron 4 Mg Tab.Dis) 4 mg PO Q6H PRN PRN Reason: Nausea able to take PO Pantoprazole Sodium (Pantoprazole 40 Mg Tab.Cr) 40 mg PO ACBREAKFAST [facility] Last Admin: 11/03/21 07:49 Dose: 40 mg Documented by: Senna/Docusate Sodium (Docusate Sodium/Sennosides 50-8.6 Mg Tab) 1 tab PO BID PRN PRN Reason: Constipation Discontinued Medications Acetaminophen (Acetaminophen 325 Mg Tab) 650 mg PO ONETIME PRN PRN Reason: HEADACHE,CHILLS Stop: 11/02/21 20:00 Acetaminophen (Acetaminophen 500 Mg Tab) 1,000 mg PO ONETIME ONE Stop: 11/02/21 11:30 Last Admin: 11/02/21 11:35 Dose: 1,000 mg Documented by: Diphenhydramine HCl (Diphenhydramine 50 Mg/Ml Sdv) 50 mg IVPUSH ONETIME PRN PRN Reason: ALLERGIC RXN Stop: 11/02/21 20:00 Epinephrine HCl (Epinephrine 1 Mg/Ml Sdv) 0.3 mg IM ONETIME PRN PRN Reason: ALLERGIC RXN Stop: 11/02/21 20:00 Famotidine (Famotidine 20 Mg/2 Ml Sdv) 20 mg IV ONETIME PRN PRN Reason: ALLERGIC RXN Stop: 11/02/21 20:00 Ibuprofen (Ibuprofen 600 Mg Tab) 600 mg PO ONETIME ONE Stop: 11/03/21 00:10 Last Admin: 11/03/21 00:24 Dose: 600 mg Documented by: Methylprednisolone Sodium Succinate (Methylprednisolone Sodium Succinate 125 Mg/2 Ml Sdv) 125 mg IVPUSH ONETIME PRN PRN Reason: ALLERGIC RXN Stop: 11/02/21 20:00 - Exam Quality Assessment: No: Supplemental Oxygen General: Alert, Oriented, Cooperative, No Acute Distress Lungs: Normal Respiratory Effort. No: Wheezing GI/Abdominal Exam: Soft, No Distention Extremities: No Pedal Edema Psy/Mental Status: Alert, Normal Affect - Patient Data Lab Results Last 24 hrs: Laboratory Results - last 24 hr 11/02/21 11/02/21 Range/Units 05:48 05:48 D-Dimer, Quantitative 3760.25 H (0.0-500.0) ng/mL C-Reactive Protein 3.10 H (0.0-0.3) mg/dL Result Diagrams: 11/02/21 05:51 11/02/21 05:51 Sepsis Event Note - Evaluation Sepsis Screening Result: No Definite Risk - Focused Exam Vital Signs: Vital Signs Temp Temp Pulse Resp BP Pulse Ox 11/03/21 10:51 36.7 C 84 18 125/58 L 94 L 11/03/21 07:13 35.4 C L 87 18 97/49 L 90 L 11/03/21 03:04 36.9 C 11/03/21 03:00 36.9 C 97 18 97/58 L 90 L 11/03/21 01:24 37.5 C - Problem List & Annotations (1) COVID-19 SNOMED Code(s): 265700316 Code(s): U07.1 - COVID-19 Status: Acute Current Visit: Yes (2) Generalized weakness SNOMED Code(s): 63027118 Code(s): R53.1 - WEAKNESS Status: Acute Current Visit: Yes (3) CAD (coronary artery disease) SNOMED Code(s): 66565547 Code(s): I25.10 - ATHSCL HEART DISEASE OF [place] CORONARY ARTERY W/O ANG PC TRS Status: Chronic Current Visit: No Qualifiers: Coronary Disease-Associated Artery/Lesion type: [place] artery [place] vs. transplanted heart: [place] heart Associated angina: without angina Qualified Code(s): I25.10 - Atherosclerotic heart disease of [place] coronary artery without angina pectoris (4) Muscular dystrophy SNOMED Code(s): 84634880 Code(s): G71.00 - MUSCULAR DYSTROPHY, UNSPECIFIED Status: Chronic Current Visit: No (5) CKD (chronic kidney disease), stage III SNOMED Code(s): 326332523 Code(s): N18.30 - CHRONIC KIDNEY DISEASE, STAGE 3 UNSPECIFIED Status: Chronic Current Visit: No Qualifiers: Chronic kidney disease stage 3 subtype: stage 3b (GFR 30-44) Qualified Code(s): N18.32 - Chronic kidney disease, stage 3b - Problem List Review Problem List Initiated/Reviewed/Updated: Yes - My Orders Last 24 Hours: My Active Orders 11/02/21 13:40 Resuscitation Status Routine 11/02/21 13:42 CULTURE URINE [RM] Stat 11/02/21 14:23 Acetaminophen [TylenoL] 650 mg PO Q4H PRN Benzonatate [Tessalon Perles] 100 mg PO TID PRN Dextromethorphan/guaiFENesin [Robitussin DM] 10 ml PO Q4H PRN Docusate Sodium/Sennosides [Senna Plus] 1 tab PO BID PRN Gabapentin [Neurontin] 200 mg PO TID LORazepam [Ativan] 0.5 mg IVPUSH Q4H PRN Magnesium Hydroxide [Milk of Magnesia] 30 ml PO Q12H PRN Melatonin 9 mg PO BEDTIME PRN Ondansetron [Zofran ODT] 4 mg PO Q6H PRN Ondansetron [Zofran] 4 mg IV Q6H PRN 11/02/21 14:23 Patient Status [ADT] Routine Intake and Output [RC] QSHIFT Notify Provider Vital Signs [RC] ASDIRECTED Oxygen Therapy [RC] PRN Pulse Oximetry [RC] CONTINUOUS Up With Assistance [RC] ASDIRECTED VTE/DVT Education [RC] Per Unit Routine Vital Signs [RC] Q4H PT Evaluation and Treatment [CONS] Routine Isolation [COMM] Routine 11/02/21 Dinner Regular Diet [DIET] Enoxaparin [Lovenox] 40 mg SUBCUT Q24H 11/02/21 21:00 Docusate Sodium [Colace] 100 mg PO BID atorvaSTATin [Lipitor] 20 mg PO BEDTIME 11/03/21 00:13 Incentive Spirometry [RT Incentive Spirometry] [RC] ASDIRECTED 11/03/21 07:30 Pantoprazole [ProTONIX] 40 mg PO ACBREAKFAST 11/03/21 09:00 Cetirizine [ZyrTEC] 10 mg PO DAILY Cholecalciferol (Vitamin D3) [Vitamin D3] 25 mcg PO DAILY Clopidogrel [Plavix] 75 mg PO DAILY Finasteride [Proscar] 5 mg PO DAILY Multivitamins w-Iron/Ca/FA/Min [Thera M Plus] 1 tab PO DAILY 11/04/21 05:00 BASIC METABOLIC PANEL,BMP [CHEM] Timed CBC W/O DIFF,HEMOGRAM [HEME] Timed (1) CRP [C-REACTIVE PROTEIN] [CHEM] Timed D-DIMER QUANTITATIVE [COAG] Timed - Plan Plan:: ASSESSMENT AND PLAN - COVID-19 infection-very miserable with symptoms and extremely weak. Symptom onset about 10/23. He remains weak but is improving. He did have a decent sized fever this afternoon. He probably would be okay at home but does not have any way to get there at this time. -Symptomatic management of nausea, pain -Physical therapy for strengthening -initiate treatment for pneumonia if respiratory status declines -Isolation precautions -Repeat labs in the morning Coronary artery disease-history of NSTEMI and stenting. No active angina. Troponin at the time of admission was very mildly elevated but probably demand ischemia in the setting of his Covid illness. -Continue medical management Stage IIIb chronic kidney disease-creatinine slightly elevated from baseline. -Encourage oral intake Muscular dystrophy-dependent on wheelchair or scooter to get around. Maintenance issues - -DVT prophylaxis-enoxaparin -GI prophylaxis-PPI -Nutrition-regular Disposition -I anticipate discharge home after the hospital stay Primary care physician -Dr. Rogelio Servin M.D.
[2021-11-03] MEDS: Enoxaparin 40 MG/0.4 ML Syringe SUBCUT SCH (16:07)
[2021-11-03] MEDS: Metoprolol Tartrate 25 MG Tab PO SCH (20:38)
[2021-11-03] MEDS: atorvaSTATin 20 MG Tab PO SCH (20:39)
[2021-11-03] MEDS: Melatonin 3 MG Tab PO PRN (20:40)
[2021-11-03] MEDS ORDERED: Sodium Chloride 0.9% 150 ML Bag IV ONE (23:04)
[2021-11-03] MEDS ORDERED: Sodium Chloride 0.9% 10 ML Syringe FLUSH PRN (23:05)
[2021-11-03] MEDS ORDERED: Sodium Chloride 0.9% 500 ML IV ONE (23:15)
[2021-11-04] MEDS: Docusate Sodium 100 MG Cap PO SCH ×2 (08:42→20:09)
[2021-11-04] MEDS: Gabapentin 100 MG Cap PO SCH ×3 (08:44→20:09)
[2021-11-04] MEDS: Alfuzosin 10 MG Tab.ER PO SCH (08:44)
[2021-11-04] MEDS: Pantoprazole 40 MG Tab.CR PO SCH (08:44)
[2021-11-04] MEDS: Cholecalciferol (Vitamin D3) 25 MCG Tab PO SCH (08:44)
[2021-11-04] MEDS: Cetirizine 10 MG Tab PO SCH (08:44)
[2021-11-04] MEDS: Clopidogrel 75 MG Tab PO SCH (08:44)
[2021-11-04] MEDS: Multivitamins with Iron/Calcium/Folic Acid/Minerals Tab PO SCH (08:44)
[2021-11-04] MEDS ORDERED: Sodium Chloride 0.9% 1,000 ML IV SCH (09:00)
[2021-11-04] MEDS: Acetaminophen 325 MG Tab PO PRN (11:28)
--- NOTE | 2021-11-04 13:07 | PCM.PN ---
- General Info Date of Service: 11/04/21 Subjective Update: Mr. Castillo continues to feel very weak and fatigued secondary to his Covid infection. He denies significant shortness of breath or cough. He unfortunately did experience an episode of chest pain last night. Review of the EKG obtained at the time of pain shows no significant ST segment changes. He did have a modest elevation of his troponin level on admission. Follow-up troponin level obtained this morning was significantly elevated and consistent with probable non-ST segment elevation myocardial infarction. He has a known history of coronary artery disease and is status post previous angioplasty and stenting. He had a non-ST segment elevation myocardial infarction last spring and was transferred to [place] for further intervention. After he arrived there he refused angiogram or further evaluation and left AMA. He has not sought any follow-up since that time, but does report episodes of chest pain occurring at home. I discussed options with him at this time including transfer for angiogram and cardiac evaluation which he refuses. He wants to be managed medically and does not want to consider further aggressive interventions or evaluation. He understands that he has a serious condition and recognized the risk of further cardiac damage and/or . Functional Status: Reports: Urinating. Denies: Tolerating Diet, Ambulating - Review of Systems General: Reports: Weakness, Fatigue. Denies: Fever, Chills Pulmonary: Reports: No Symptoms Cardiovascular: Reports: Chest Pain. Denies: Palpitations, Dyspnea on Exertion, Orthopnea, PND, Edema Gastrointestinal: Reports: No Symptoms Genitourinary: Reports: No Symptoms - Patient Data Vitals - Most Recent: Last Vital Signs Temp 98.9 F 11/04/21 11:28 Pulse 82 11/04/21 11:05 Resp 19 11/04/21 11:05 BP 87/53 L 11/04/21 11:05 Pulse Ox 92 L 11/04/21 11:05 Weight - Most Recent: 170 lb I&O - Last 24 Hours: Intake & Output 11/03/21 11/04/21 11/04/21 22:59 06:59 14:59 Intake Total 4240 500 1400 Output Total 50 300 Balance 4190 200 1400 Lab Results Last 24 Hours: Laboratory Results - last 24 hr 11/04/21 11/04/21 11/04/21 Range/Units 04:50 04:50 04:50 WBC 9.4 (4.5-11.0) K/uL RBC 4.46 (4.30-5.90) M/uL Hgb 13.7 (12.0-15.0) g/dL Hct 40.2 (40.0-54.0) % MCV 90 (80-98) fL MCH 31 (27-31) pg MCHC 34 (32-36) % Plt Count 116 L (150-400) K/uL D-Dimer, Quantitative 2746.31 H (0.0-500.0) ng/mL Sodium 139 L (140-148) mmol/L Potassium 3.5 L (3.6-5.2) mmol/L Chloride 102 (100-108) mmol/L Carbon Dioxide 21 (21-32) mmol/L Anion Gap 19.5 H (5.0-14.0) mmol/L BUN 53 H D (7-18) mg/dL Creatinine 3.1 H (0.8-1.3) mg/dL Est Cr Clr Drug Dosing 23.49 mL/min Estimated GFR (MDRD) 20 L (>60) Glucose 103 (74-106) mg/dL Calcium 8.6 (8.5-10.1) mg/dL Troponin I High Sens (<=60.3) pg/mL C-Reactive Protein 14.18 H (0.0-0.3) mg/dL 11/04/21 Range/Units 10:10 WBC (4.5-11.0) K/uL RBC (4.30-5.90) M/uL Hgb (12.0-15.0) g/dL Hct (40.0-54.0) % MCV (80-98) fL MCH (27-31) pg MCHC (32-36) % Plt Count (150-400) K/uL D-Dimer, Quantitative (0.0-500.0) ng/mL Sodium (140-148) mmol/L Potassium (3.6-5.2) mmol/L Chloride (100-108) mmol/L Carbon Dioxide (21-32) mmol/L Anion Gap (5.0-14.0) mmol/L BUN (7-18) mg/dL Creatinine (0.8-1.3) mg/dL Est Cr Clr Drug Dosing mL/min Estimated GFR (MDRD) (>60) Glucose (74-106) mg/dL Calcium (8.5-10.1) mg/dL Troponin I High Sens 374.7 H* (<=60.3) pg/mL C-Reactive Protein (0.0-0.3) mg/dL Melvin Results Last 24 Hours: Microbiology 11/02/21 13:42 Urine Culture - Preliminary Urine, Clean Catch NO GROWTH AFTER 1 DAY Med Orders - Current: Current Medications Acetaminophen (Acetaminophen 325 Mg Tab) 650 mg PO Q4H PRN PRN Reason: Pain (Mild 1-3)/fever Last Admin: 11/04/21 11:28 Dose: 650 mg Documented by: Alfuzosin HCl (Alfuzosin 10 Mg Tab.Er) 10 mg PO DAILY [facility] Last Admin: 11/04/21 08:44 Dose: 10 mg Documented by: Aspirin (Aspirin 81 Mg Tab.Chew) 81 mg PO DAILY [facility] Atorvastatin Calcium (Atorvastatin 20 Mg Tab) 20 mg PO BEDTIME [facility] Last Admin: 11/03/21 20:39 Dose: 20 mg Documented by: Benzonatate (Benzonatate 100 Mg Cap) 100 mg PO TID PRN PRN Reason: Cough Cetirizine HCl (Cetirizine 10 Mg Tab) 10 mg PO DAILY [facility] Last Admin: 11/04/21 08:44 Dose: 10 mg Documented by: Cholecalciferol (Cholecalciferol (Vitamin D3) 25 Mcg Tab) 25 mcg PO DAILY [facility] Last Admin: 11/04/21 08:44 Dose: 25 mcg Documented by: Clopidogrel Bisulfate (Clopidogrel 75 Mg Tab) 75 mg PO DAILY [facility] Last Admin: 11/04/21 08:44 Dose: 75 mg Documented by: Docusate Sodium (Docusate Sodium 100 Mg Cap) 100 mg PO BID [facility] Last Admin: 11/04/21 08:42 Dose: Not Given Documented by: Finasteride (Finasteride 5 Mg Tab) 5 mg PO QPM [facility] Gabapentin (Gabapentin 100 Mg Cap) 200 mg PO TID [facility] Last Admin: 11/04/21 08:44 Dose: 200 mg Documented by: Guaifenesin/Dextromethorphan (Guaifenesin/Dextromethorphan 100-10 Mg/5 Ml Soln 10 Ml Cup) 10 ml PO Q4H PRN PRN Reason: Cough Heparin Sodium/Dextrose (Heparin 25,000 Units In D5w 500 Ml) 25,000 units in 500 mls @ 18.507 mls/hr IV TITRATE RJ; Protocol Sodium Chloride (Normal Saline) 1,000 mls @ 100 mls/hr IV ASDIRECTED RJ Lorazepam (Lorazepam 2 Mg/Ml Sdv) 0.5 mg IVPUSH Q4H PRN PRN Reason: Nausea/Vomiting Magnesium Hydroxide (Magnesium Hydroxide 400 Mg/5 Ml Susp 30 Ml Cup) 30 ml PO Q12H PRN PRN Reason: Constipation Melatonin (Melatonin 3 Mg Tab) 9 mg PO BEDTIME PRN PRN Reason: Sleep Last Admin: 11/03/21 20:40 Dose: 9 mg Documented by: Metoprolol Tartrate (Metoprolol Tartrate 25 Mg Tab) 12.5 mg PO BID [facility] Last Admin: 11/03/21 20:38 Dose: 12.5 mg Documented by: Multivitamins/Minerals (Multivitamins With Iron/Calcium/Folic Acid/Minerals Tab) 1 tab PO DAILY [facility] Last Admin: 11/04/21 08:44 Dose: 1 tab Documented by: Ondansetron HCl (Ondansetron 4 Mg/2 Ml Sdv) 4 mg IV Q6H PRN PRN Reason: Nausea/Vomiting Ondansetron HCl (Ondansetron 4 Mg Tab.Dis) 4 mg PO Q6H PRN PRN Reason: Nausea able to take PO Pantoprazole Sodium (Pantoprazole 40 Mg Tab.Cr) 40 mg PO ACBREAKFAST [facility] Last Admin: 11/04/21 08:44 Dose: 40 mg Documented by: Potassium Chloride (Potassium Chloride 20 Meq Tab.Er) 40 meq PO ONETIME ONE Stop: 11/04/21 12:58 Senna/Docusate Sodium (Docusate Sodium/Sennosides 50-8.6 Mg Tab) 1 tab PO BID PRN PRN Reason: Constipation Sodium Chloride (Sodium Chloride 0.9% 10 Ml Syringe) 10 ml FLUSH ASDIRECTED PRN PRN Reason: Keep Vein Open Discontinued Medications Acetaminophen (Acetaminophen 325 Mg Tab) 650 mg PO ONETIME PRN PRN Reason: HEADACHE,CHILLS Stop: 11/02/21 20:00 Acetaminophen (Acetaminophen 500 Mg Tab) 1,000 mg PO ONETIME ONE Stop: 11/02/21 11:30 Last Admin: 11/02/21 11:35 Dose: 1,000 mg Documented by: Diphenhydramine HCl (Diphenhydramine 50 Mg/Ml Sdv) 50 mg IVPUSH ONETIME PRN PRN Reason: ALLERGIC RXN Stop: 11/02/21 20:00 Enoxaparin Sodium (Enoxaparin 40 Mg/0.4 Ml Syringe) 40 mg SUBCUT Q24H [facility] Last Admin: 11/03/21 16:07 Dose: 40 mg Documented by: Epinephrine HCl (Epinephrine 1 Mg/Ml Sdv) 0.3 mg IM ONETIME PRN PRN Reason: ALLERGIC RXN Stop: 11/02/21 20:00 Famotidine (Famotidine 20 Mg/2 Ml Sdv) 20 mg IV ONETIME PRN PRN Reason: ALLERGIC RXN Stop: 11/02/21 20:00 Finasteride (Finasteride 5 Mg Tab) 5 mg PO DAILY [facility] Last Admin: 11/03/21 08:45 Dose: 5 mg Documented by: Sodium Chloride (Normal Saline) 500 mls @ 500 mls/hr IV BOLUS ONE Stop: 11/04/21 00:14 Last Admin: 11/04/21 00:01 Dose: Not Given Documented by: Sodium Chloride (Normal Saline) 1,000 mls @ 500 mls/hr IV ASDIRECTED RJ Stop: 11/04/21 11:01 Last Admin: 11/04/21 10:06 Dose: 500 mls/hr Documented by: Ibuprofen (Ibuprofen 600 Mg Tab) 600 mg PO ONETIME ONE Stop: 11/03/21 00:10 Last Admin: 11/03/21 00:24 Dose: 600 mg Documented by: Ibuprofen (Ibuprofen 600 Mg Tab) 600 mg PO ONETIME ONE Stop: 11/03/21 23:03 Last Admin: 11/03/21 23:43 Dose: 600 mg Documented by: Methylprednisolone Sodium Succinate (Methylprednisolone Sodium Succinate 125 Mg/2 Ml Sdv) 125 mg IVPUSH ONETIME PRN PRN Reason: ALLERGIC RXN Stop: 11/02/21 20:00 Sodium Chloride (Sodium Chloride 0.9% 150 Ml Bag) 500 ml IV BOLUS ONE Stop: 11/03/21 23:05 - Exam Quality Assessment: DVT Prophylaxis General: Alert, Oriented, Cooperative, Moderate Distress Lungs: Clear to Auscultation, Normal Respiratory Effort Cardiovascular: Regular Rate, Regular Rhythm, No Murmurs GI/Abdominal Exam: Soft, Non-Tender, No Organomegaly, No Distention Extremities: Non-Tender, No Pedal Edema - Patient Data Lab Results Last 24 hrs: Laboratory Results - last 24 hr 11/04/21 11/04/21 11/04/21 Range/Units 04:50 04:50 04:50 WBC 9.4 (4.5-11.0) K/uL RBC 4.46 (4.30-5.90) M/uL Hgb 13.7 (12.0-15.0) g/dL Hct 40.2 (40.0-54.0) % MCV 90 (80-98) fL MCH 31 (27-31) pg MCHC 34 (32-36) % Plt Count 116 L (150-400) K/uL D-Dimer, Quantitative 2746.31 H (0.0-500.0) ng/mL Sodium 139 L (140-148) mmol/L Potassium 3.5 L (3.6-5.2) mmol/L Chloride 102 (100-108) mmol/L Carbon Dioxide 21 (21-32) mmol/L Anion Gap 19.5 H (5.0-14.0) mmol/L BUN 53 H D (7-18) mg/dL Creatinine 3.1 H (0.8-1.3) mg/dL Est Cr Clr Drug Dosing 23.49 mL/min Estimated GFR (MDRD) 20 L (>60) Glucose 103 (74-106) mg/dL Calcium 8.6 (8.5-10.1) mg/dL Troponin I High Sens (<=60.3) pg/mL C-Reactive Protein 14.18 H (0.0-0.3) mg/dL 11/04/21 Range/Units 10:10 WBC (4.5-11.0) K/uL RBC (4.30-5.90) M/uL Hgb (12.0-15.0) g/dL Hct (40.0-54.0) % MCV (80-98) fL MCH (27-31) pg MCHC (32-36) % Plt Count (150-400) K/uL D-Dimer, Quantitative (0.0-500.0) ng/mL Sodium (140-148) mmol/L Potassium (3.6-5.2) mmol/L Chloride (100-108) mmol/L Carbon Dioxide (21-32) mmol/L Anion Gap (5.0-14.0) mmol/L BUN (7-18) mg/dL Creatinine (0.8-1.3) mg/dL Est Cr Clr Drug Dosing mL/min Estimated GFR (MDRD) (>60) Glucose (74-106) mg/dL Calcium (8.5-10.1) mg/dL Troponin I High Sens 374.7 H* (<=60.3) pg/mL C-Reactive Protein (0.0-0.3) mg/dL Result Diagrams: 11/04/21 04:50 11/04/21 04:50 Melvin Results Last 24 hrs: Microbiology 11/02/21 13:42 Urine Culture - Preliminary Urine, Clean Catch NO GROWTH AFTER 1 DAY Sepsis Event Note - Evaluation Sepsis Screening Result: Possible Sepsis Risk - Focused Exam Vital Signs: Vital Signs Temp Temp Pulse Resp BP Pulse Ox 11/04/21 11:28 98.9 F 11/04/21 11:05 98.9 F 82 19 87/53 L 92 L 11/04/21 09:54 97.7 F 11/04/21 07:51 96.8 F L 73 18 94/52 L 92 L 11/04/21 05:18 77 89/61 L 11/04/21 02:31 97.6 F 77 16 85/64 L 90 L - Problem List Review Problem List Initiated/Reviewed/Updated: Yes - My Orders Last 24 Hours: My Active Orders 11/04/21 12:53 Resuscitation Status Routine 11/04/21 12:57 Potassium Chloride [Klor-Con M20] 40 meq PO ONETIME ONE 11/04/21 13:00 Aspirin 81 mg PO DAILY Heparin Sodium/D5W [Heparin 25,000 Units in D5W 500 ML] 25,000 units in 500 ml IV TITRATE Sodium Chloride 0.9% @ 100 MLS/HR(1000ml) Sodium Chloride 0.9% [Normal Saline] 1,000 ml IV ASDIRECTED 11/05/21 05:00 BASIC METABOLIC PANEL,BMP [CHEM] Timed 11/05/21 05:11 TROPONIN I HIGH SENSITIVITY [CHEM] AM - Plan Plan:: ASSESSMENT AND PLAN - - infection-very miserable with symptoms and extremely weak. Symptom onset about 10/23. He remains very weak but does not have other significant overt symptoms of Covid other than intermittent fever. -Symptomatic management of nausea, pain -Physical therapy for strengthening -initiate treatment for pneumonia if respiratory status declines -Isolation precautions -Repeat labs in the morning Non-ST segment elevation myocardial infarction-he has a known history of coronary artery disease with previous infarction. Earlier this year was transferred for angiogram, when he arrived in [place] refused the study and left the hospital AMA. He did experience an episode of chest pain last night and a troponin level obtained this morning is significantly elevated from admission. He continues to refuse any consideration of further evaluation or intervention and is not interested in transfer or angiogram. He will accept medical management -Follow-up troponin level in a.m. -IV heparin per protocol -Continue Plavix -Aspirin 81 mg daily -Continue metoprolol -Continue Lipitor -Not currently a candidate for LISA inhibitor therapy because of borderline blood pressures Stage IIIb chronic kidney disease-creatinine increased further from admission -Cautious IV fluids until a.m. -Follow-up labs in a.m. -Encourage oral intake Palliative care-he wishes to be DNR/DNI, does not want further aggressive interventions or evaluation concerning his heart disease and recent non-STEMI. Muscular dystrophy-dependent on wheelchair or scooter to get around. Maintenance issues - -DVT prophylaxis-enoxaparin -GI prophylaxis-PPI -Nutrition-regular Disposition -I anticipate discharge home after the hospital stay Primary care physician -Dr. Rogelio Sloan
[2021-11-04] MEDS ORDERED: Potassium Chloride 20 MEQ Tab.ER PO ONE (13:15)
[2021-11-04] MEDS ORDERED: Heparin Sodium 5,000 Units/ML Vial IVPUSH ONE (13:24)
[2021-11-04] MEDS: Sodium Chloride 0.9% 1,000 ML IV SCH ×2 (13:34→23:39)
[2021-11-04] MEDS: Heparin Sodium/D5W 25,000 UNITS/500 ML BAG IV SCH (13:37)
[2021-11-04] MEDS: Aspirin 81 MG Tab.Chew PO SCH (13:41)
[2021-11-04] MEDS ORDERED: Sodium Chloride 0.9% 500 ML IV ONE (15:42)
[2021-11-04] MEDS: Finasteride 5 MG Tab PO SCH (16:58)
[2021-11-04] MEDS: atorvaSTATin 20 MG Tab PO SCH (20:09)
[2021-11-04] MEDS: Metoprolol Tartrate 25 MG Tab PO SCH (20:09)
[2021-11-04] MEDS ORDERED: Isosorbide Mononitrate 30 MG Tab.ER PO ONE (23:49)
[2021-11-04] MEDS ORDERED: Nitroglycerin 0.4 MG Tab.SL SL PRN (23:49)
[2021-11-05] MEDS ORDERED: Furosemide 40 MG/4 ML VIAL IVPUSH ONE ×2 (01:30→13:00)
[2021-11-05] MEDS ORDERED: Furosemide 40 MG/4 ML VIAL ONE (01:39)
[2021-11-05] MEDS ORDERED: Morphine 10 MG/ML Syringe ONE (01:39)
[2021-11-05] MEDS: Morphine 2 MG/ML SYRINGE IVPUSH PRN ×2 (01:46→05:13)
[2021-11-05] MEDS: Heparin Sodium/D5W 25,000 UNITS/500 ML BAG IV SCH (04:10)
[2021-11-05] MEDS: Pantoprazole 40 MG Tab.CR PO SCH (07:56)
[2021-11-05] MEDS: Clopidogrel 75 MG Tab PO SCH (07:59)
[2021-11-05] MEDS: Gabapentin 100 MG Cap PO SCH ×2 (07:59→13:29)
[2021-11-05] MEDS: Alfuzosin 10 MG Tab.ER PO SCH (08:00)
[2021-11-05] MEDS: Aspirin 81 MG Tab.Chew PO SCH (08:00)
[2021-11-05] MEDS: Docusate Sodium 100 MG Cap PO SCH (10:56)
[2021-11-05] MEDS: Metoprolol Tartrate 25 MG Tab PO SCH (10:56)
[2021-11-05] MEDS: Cholecalciferol (Vitamin D3) 25 MCG Tab PO SCH (10:58)
[2021-11-05] MEDS: Multivitamins with Iron/Calcium/Folic Acid/Minerals Tab PO SCH (10:58)
[2021-11-05] MEDS: Cetirizine 10 MG Tab PO SCH (10:58)
--- NOTE | 2021-11-05 12:53 | CR ---
CHEST: Portable 11/05/2021 and 12:21 PM CLINICAL HISTORY:Hypoxia COMPARISON:March 2021 FINDINGS: Patient has diffuse bilateral infiltrates greater on the right. There are atherosclerotic changes in the aorta. Impression: Diffuse bilateral pulmonary infiltrates right greater than left. This suggests diffuse pneumonitis
[2021-11-05] MEDS ORDERED: Dexamethasone 4 MG/ML SDV IVPUSH SCH (13:00)
--- NOTE | 2021-11-05 14:29 | PCM.EKG ---
#1 Interpretation EKG Date: 11/04/21 Time: 23:25 Rhythm: NSR Rate (Beats/Min): 96 [place]: Normal P-Wave: Present QRS: Normal ST-T: Normal QT: Normal Comparison: NA - No Prior EKG EKG Interpretation Comments: Normal appearing EKG
--- NOTE | 2021-11-05 14:31 | PCM.EKG ---
#1 Interpretation EKG Date: 11/03/21 Time: 23:20 Rhythm: NSR Rate (Beats/Min): 83 [place]: Normal P-Wave: Present QRS: Normal ST-T: Normal QT: Normal EKG Interpretation Comments: Normal-appearing EKG
--- NOTE | 2021-11-05 16:45 | PCM.DCSUM1 ---
Discharge Summary - Hospital Course Brief History: Mr. Castillo is a 70-year-old gentleman who was admitted through the emergency department with generalized weakness and inability to care for himself at home because of his COVID-19 infection. - Discharge Data Discharge Date: 11/05/21 Discharge Disposition: DC/Tfer to Acute Hospital 02 Condition: Poor - Referral to Home Health Primary Care Physician: PCP None - Discharge Diagnosis/Problem(s) (1) Acute respiratory failure with hypoxia SNOMED Code(s): 61390027, 653365354 ICD Code: J96.01 - ACUTE RESPIRATORY FAILURE WITH HYPOXIA Status: Acute Current Visit: Yes (2) Muscle soreness SNOMED Code(s): 408228192, 547696195 ICD Code: M79.10 - MYALGIA, UNSPECIFIED SITE Status: Acute Current Visit: No (3) COVID-19 SNOMED Code(s): 580435775 ICD Code: U07.1 - COVID-19 Status: Acute Current Visit: Yes (4) Generalized weakness SNOMED Code(s): 81549406 ICD Code: R53.1 - WEAKNESS Status: Acute Current Visit: Yes (5) Non-ST elevated myocardial infarction SNOMED Code(s): 90083183 ICD Code: I21.4 - NON-ST ELEVATION (NSTEMI) MYOCARDIAL INFARCTION Status: Chronic Current Visit: No (6) CKD (chronic kidney disease), stage III SNOMED Code(s): 799279508 ICD Code: N18.30 - CHRONIC KIDNEY DISEASE, STAGE 3 UNSPECIFIED Status: Chronic Current Visit: No Qualifiers: Chronic kidney disease stage 3 subtype: stage 3b (GFR 30-44) Qualified Code(s): N18.32 - Chronic kidney disease, stage 3b - Patient Summary/Data Consults: Consultations 11/02/21 14:23 PT Evaluation and Treatment [CONS] Routine Please Evaluate and Treat. PT Reason for Consult: Strengthening This query below is only for informational purposes and is not editable. Hospital Course: Mr. Castillo presented to the emergency room with progressive weakness, fatigue, anorexia and some dyspnea. He reports that he first noticed symptoms about 9 or 10 days ago. He was seen at the walk-in clinic a few days ago and declined Covid testing but was started on antibiotics and steroids for possible sinus infection. He is so weak that he cannot even sit up at this time. He has some nausea but no significant diarrhea. Oral intake has been declining over the past couple of days. Work-up in the emergency room did reveal that he was Covid positive. Laboratory studies were fairly unremarkable otherwise. The patient was agreeable to monoclonal antibodies. He was hoping to go home afterwards but he was too weak to even sit up in bed so he will be admitted for observation and strengthening. His troponin level in the emergency department was mildly elevated at 88, this was felt to be secondary to stress related to his Covid infection. At baseline he does have known chronic kidney disease stage III with a creatinine in the range of 2.0. On admission creatinine was mildly elevated from baseline at 2.4. Over the first 24 hours of hospitalization he remained fairly stable with no significant hypoxia but ongoing weakness. On the second day in the evening he did develop an episode of chest pain, EKG was obtained at that time and showed no acute abnormalities. Following morning troponin level was obtained and had increased significantly to 374, consistent with a non-ST segment elevation myocardial infarction. He does have a known history of coronary artery disease and has had a previous non- STEMI, but refused angiogram at that time last March. He was started on IV heparin and aspirin was added to his current therapy. He was already on a statin and beta-ale, LISA inhibitor was not added because of borderline blood pressures. On the second day his creatinine had increased from baseline was found to be 3.0. During that day he developed progressive hypoxia requiring in creased levels of supplemental oxygen. At the time of transfer he is on 12 to 14 L on a nonrebreather mask which was most comfortable for him, he refused nasal cannula. He was started on dexamethasone because of his hypoxia and chest x-ray showed bilateral infiltrates consistent with COVID-19 infection. He was not started on remdesivir because of his kidney dysfunction and was not started on baricitinib because of his cardiac disease and kidney dysfunction. Attempt was made to transfer, but there were no beds available. On the day of transfer he remained on 12 to 14 L of oxygen via nonrebreather facemask. He will be transferred to [facility] in [facility] via [facility] for further subspecialty evaluation and management. He is aware that the angiogram could potentially cause kidney failure that could ultimately lead to his . He is in agreement with the transfer and willing to proceed with angiogram if that is indicated. - Patient Instructions Diet: Heart Healthy Diet Activity: As Tolerated Other/Special Instructions: Transfer to [facility] via [facility] ambulance - Discharge Plan *PRESCRIPTION DRUG MONITORING PROGRAM REVIEWED*: Not Applicable *COPY OF PRESCRIPTION DRUG MONITORING REPORT IN PATIENT ANTHONY: Not Applicable Home Medications: Home Meds Cetirizine HCl [Zyrtec] 10 mg PO DAILY 08/04/20 [History] Clopidogrel [Plavix] 75 mg PO DAILY 08/04/20 [History] Gabapentin [Neurontin] 200 mg PO TID 08/04/20 [History] Metoprolol Tartrate 12.5 mg PO BID 08/04/20 [History] Pantoprazole Sodium [Protonix] 40 mg PO ACBREAKFAST 08/04/20 [History] atorvaSTATin Calcium [Lipitor] 20 mg PO BEDTIME 08/04/20 [History] Cholecalciferol (Vitamin D3) [Vitamin D3] 1 tab PO DAILY 07/05/21 [History] Docusate Sodium 100 mg PO DAILY 07/05/21 [History] Multivitamin 1 tab PO DAILY 07/05/21 [History] Alfuzosin [Uroxatral] 10 mg PO DAILY 11/02/21 [History] Finasteride 5 mg PO QPM 11/02/21 [History] Aspirin 81 mg PO DAILY tab.chew 11/05/21 [Rx] dexAMETHasone [Decadron] 6 mg IVPUSH DAILY sdv 11/05/21 [Rx] Patient Handouts: Fall Prevention in the Home, Adult, [id number], COVID-19 Referrals: PCP,None [Primary Care Provider] - - Discharge Summary/Plan Comment DC Time >30 min.: No Total # of Minutes for Discharge Time: 25 - Patient Data Vitals - Most Recent: Last Vital Signs Temp 97.2 F 11/05/21 16:00 Pulse 103 H 11/05/21 06:08 Resp 20 11/05/21 16:00 BP 86/53 L 11/05/21 16:00 Pulse Ox 91 L 11/05/21 16:00 Weight - Most Recent: 184 lb I&O - Last 24 hours: Intake & Output 11/05/21 11/05/21 11/05/21 06:59 14:59 22:59 Intake Total 1148 100 Balance 1148 100 Lab Results - Last 24 hrs: Laboratory Results - last 24 hr 11/04/21 11/05/21 11/05/21 Range/Units 20:15 02:00 05:50 WBC (4.5-11.0) K/uL RBC (4.30-5.90) M/uL Hgb (12.0-15.0) g/dL Hct (40.0-54.0) % MCV (80-98) fL MCH (27-31) pg MCHC (32-36) % Plt Count (150-400) K/uL Neut % (Auto) (36-66) % Lymph % (Auto) (24-44) % Jefferson % (Auto) (2-6) % Eos % (Auto) (2-4) % Baso % (Auto) (0-1) % APTT > 192.4 H* 119.9 H* (21.4-31.8) sec Sodium 142 (140-148) mmol/L Potassium 3.9 (3.6-5.2) mmol/L Chloride 109 H (100-108) mmol/L Carbon Dioxide 18 L (21-32) mmol/L Anion Gap 18.9 H (5.0-14.0) mmol/L BUN 59 H (7-18) mg/dL Creatinine 3.2 H (0.8-1.3) mg/dL Est Cr Clr Drug Dosing 24.26 mL/min Estimated GFR (MDRD) 19 L (>60) Glucose 119 H (74-106) mg/dL Calcium 7.7 L (8.5-10.1) mg/dL Troponin I High Sens (<=60.3) pg/mL 11/05/21 11/05/21 11/05/21 Range/Units 05:50 05:50 08:15 WBC 9.4 (4.5-11.0) K/uL RBC 3.89 L (4.30-5.90) M/uL Hgb 11.9 L (12.0-15.0) g/dL Hct 35.7 L (40.0-54.0) % MCV 92 (80-98) fL MCH 31 (27-31) pg MCHC 33 (32-36) % Plt Count 118 L (150-400) K/uL Neut % (Auto) 88.3 H (36-66) % Lymph % (Auto) 9.6 L (24-44) % Jefferson % (Auto) 2.0 (2-6) % Eos % (Auto) 0.0 L (2-4) % Baso % (Auto) 0.1 (0-1) % APTT 68.9 H (21.4-31.8) sec Sodium (140-148) mmol/L Potassium (3.6-5.2) mmol/L Chloride (100-108) mmol/L Carbon Dioxide (21-32) mmol/L Anion Gap (5.0-14.0) mmol/L BUN (7-18) mg/dL Creatinine (0.8-1.3) mg/dL Est Cr Clr Drug Dosing mL/min Estimated GFR (MDRD) (>60) Glucose (74-106) mg/dL Calcium (8.5-10.1) mg/dL Troponin I High Sens 173.0 H* (<=60.3) pg/mL 11/05/ Range/Units 14:00 WBC (4.5-11.0) K/uL RBC (4.30-5.90) M/uL Hgb (12.0-15.0) g/dL Hct (40.0-54.0) % MCV (80-98) fL MCH (27-31) pg MCHC (32-36) % Plt Count (150-400) K/uL Neut % (Auto) (36-66) % Lymph % (Auto) (24-44) % Jefferson % (Auto) (2-6) % Eos % (Auto) (2-4) % Baso % (Auto) (0-1) % APTT 68.1 H (21.4-31.8) sec Sodium (140-148) mmol/L Potassium (3.6-5.2) mmol/L Chloride (100-108) mmol/L Carbon Dioxide (21-32) mmol/L Anion Gap (5.0-14.0) mmol/L BUN (7-18) mg/dL Creatinine (0.8-1.3) mg/dL Est Cr Clr Drug Dosing mL/min Estimated GFR (MDRD) (>60) Glucose (74-106) mg/dL Calcium (8.5-10.1) mg/dL Troponin I High Sens (<=60.3) pg/mL BRITTNEY Results - Last 24 hrs: Microbiology 11/02/21 13:42 Urine Culture - Preliminary Urine, Clean Catch NO GROWTH AFTER 2 DAYS Med Orders - Current: Current Medications Acetaminophen (Acetaminophen 325 Mg Tab) 650 mg PO Q4H PRN PRN Reason: Pain (Mild 1-3)/fever Last Admin: 11/04/21 11:28 Dose: 650 mg Documented by: Alfuzosin HCl (Alfuzosin 10 Mg Tab.Er) 10 mg PO DAILY [facility] Last Admin: 11/05/21 08:00 Dose: 10 mg Documented by: Aspirin (Aspirin 81 Mg Tab.Chew) 81 mg PO DAILY [facility] Last Admin: 11/05/21 08:00 Dose: 81 mg Documented by: Atorvastatin Calcium (Atorvastatin 20 Mg Tab) 20 mg PO BEDTIME [facility] Last Admin: 11/04/21 20:09 Dose: 20 mg Documented by: Benzonatate (Benzonatate 100 Mg Cap) 100 mg PO TID PRN PRN Reason: Cough Cetirizine HCl (Cetirizine 10 Mg Tab) 10 mg PO DAILY [facility] Last Admin: 11/05/21 10:58 Dose: 10 mg Documented by: Cholecalciferol (Cholecalciferol (Vitamin D3) 25 Mcg Tab) 25 mcg PO DAILY [facility] Last Admin: 11/05/21 10:58 Dose: 25 mcg Documented by: Clopidogrel Bisulfate (Clopidogrel 75 Mg Tab) 75 mg PO DAILY [facility] Last Admin: 11/05/21 07:59 Dose: 75 mg Documented by: Dexamethasone (Dexamethasone 4 Mg/Ml Sdv) 6 mg IVPUSH DAILY [facility] Last Admin: 11/05/21 12:27 Dose: 6 mg Documented by: Docusate Sodium (Docusate Sodium 100 Mg Cap) 100 mg PO BID [facility] Last Admin: 11/05/21 10:56 Dose: Not Given Documented by: Finasteride (Finasteride 5 Mg Tab) 5 mg PO QPM [facility] Last Admin: 11/04/21 16:58 Dose: 5 mg Documented by: Gabapentin (Gabapentin 100 Mg Cap) 200 mg PO TID [facility] Last Admin: 11/05/21 13:29 Dose: 200 mg Documented by: Guaifenesin/Dextromethorphan (Guaifenesin/Dextromethorphan 100-10 Mg/5 Ml Soln 10 Ml Cup) 10 ml PO Q4H PRN PRN Reason: Cough Heparin Sodium/Dextrose (Heparin 25,000 Units In D5w 500 Ml) 25,000 units in 500 mls @ 19.68 mls/hr IV TITRATE RJ; Protocol Last Admin: 11/05/21 04:10 Dose: 6 units/kg/hr, 9.84 mls/hr Documented by: Lorazepam (Lorazepam 2 Mg/Ml Sdv) 0.5 mg IVPUSH Q4H PRN PRN Reason: Nausea/Vomiting Last Admin: 11/04/21 23:28 Dose: 0.5 mg Documented by: Magnesium Hydroxide (Magnesium Hydroxide 400 Mg/5 Ml Susp 30 Ml Cup) 30 ml PO Q12H PRN PRN Reason: Constipation Melatonin (Melatonin 3 Mg Tab) 9 mg PO BEDTIME PRN PRN Reason: Sleep Last Admin: 11/03/21 20:40 Dose: 9 mg Documented by: Metoprolol Tartrate (Metoprolol Tartrate 25 Mg Tab) 12.5 mg PO BID [facility] Last Admin: 11/05/21 10:56 Dose: Not Given Documented by: Morphine Sulfate (Morphine 2 Mg/Ml Syringe) 2 mg IVPUSH Q2H PRN PRN Reason: Air hunger Last Admin: 11/05/21 05:13 Dose: 2 mg Documented by: Multivitamins/Minerals (Multivitamins With Iron/Calcium/Folic Acid/Minerals Tab) 1 tab PO DAILY [facility] Last Admin: 11/05/21 10:58 Dose: Not Given Documented by: Nitroglycerin (Nitroglycerin 0.4 Mg Tab.Sl) 0.4 mg SL Q5M PRN PRN Reason: Chest Pain Ondansetron HCl (Ondansetron 4 Mg/2 Ml Sdv) 4 mg IV Q6H PRN PRN Reason: Nausea/Vomiting Ondansetron HCl (Ondansetron 4 Mg Tab.Dis) 4 mg PO Q6H PRN PRN Reason: Nausea able to take PO Last Admin: 11/04/21 13:32 Dose: 4 mg Documented by: Pantoprazole Sodium (Pantoprazole 40 Mg Tab.Cr) 40 mg PO ACBREAKFAST [facility] Last Admin: 11/05/21 07:56 Dose: 40 mg Documented by: Senna/Docusate Sodium (Docusate Sodium/Sennosides 50-8.6 Mg Tab) 1 tab PO BID PRN PRN Reason: Constipation Sodium Chloride (Sodium Chloride 0.9% 10 Ml Syringe) 10 ml FLUSH ASDIRECTED PRN PRN Reason: Keep Vein Open Last Admin: 11/04/21 23:37 Dose: 10 ml Documented by: Discontinued Medications Acetaminophen (Acetaminophen 325 Mg Tab) 650 mg PO ONETIME PRN PRN Reason: HEADACHE,CHILLS Stop: 11/02/21 20:00 Acetaminophen (Acetaminophen 500 Mg Tab) 1,000 mg PO ONETIME ONE Stop: 11/02/21 11:30 Last Admin: 11/02/21 11:35 Dose: 1,000 mg Documented by: Diphenhydramine HCl (Diphenhydramine 50 Mg/Ml Sdv) 50 mg IVPUSH ONETIME PRN PRN Reason: ALLERGIC RXN Stop: 11/02/21 20:00 Enoxaparin Sodium (Enoxaparin 40 Mg/0.4 Ml Syringe) 40 mg SUBCUT Q24H [facility] Last Admin: 11/03/21 16:07 Dose: 40 mg Documented by: Epinephrine HCl (Epinephrine 1 Mg/Ml Sdv) 0.3 mg IM ONETIME PRN PRN Reason: ALLERGIC RXN Stop: 11/02/21 20:00 Famotidine (Famotidine 20 Mg/2 Ml Sdv) 20 mg IV ONETIME PRN PRN Reason: ALLERGIC RXN Stop: 11/02/21 20:00 Finasteride (Finasteride 5 Mg Tab) 5 mg PO DAILY [facility] Last Admin: 11/03/21 08:45 Dose: 5 mg Documented by: Furosemide (Furosemide 40 Mg/4 Ml Vial) 40 mg IVPUSH ONETIME ONE Stop: 11/05/21 01:31 Last Admin: 11/05/21 01:43 Dose: 40 mg Documented by: Furosemide (Furosemide 40 Mg/4 Ml Vial) Confirm Administered Dose 40 mg .ROUTE .STK-MED ONE Stop: 11/05/21 01:40 Last Admin: 11/05/21 01:51 Dose: Not Given Documented by: Furosemide (Furosemide 40 Mg/4 Ml Vial) 80 mg IVPUSH ONETIME ONE Stop: 11/05/21 13:01 Last Admin: 11/05/21 13:29 Dose: Not Given Documented by: Heparin Sodium (Porcine) (Heparin Sodium 5,000 Units/Ml Vial) 4,000 units I VPUSH .BOLUS ONE; Protocol Stop: 11/04/21 13:25 Last Admin: 11/04/21 13:35 Dose: 4,000 units Documented by: Sodium Chloride (Normal Saline) 500 mls @ 500 mls/hr IV BOLUS ONE Stop: 11/04/21 00:14 Last Admin: 11/04/21 00:01 Dose: Not Given Documented by: Sodium Chloride (Normal Saline) 1,000 mls @ 500 mls/hr IV ASDIRECTED [facility] Stop: 11/04/21 11:01 Last Admin: 11/04/21 10:06 Dose: 500 mls/hr Documented by: Sodium Chloride (Normal Saline) 1,000 mls @ 100 mls/hr IV ASDIRECTED [facility] Last Admin: 11/04/21 23:39 Dose: 100 mls/hr Documented by: Sodium Chloride (Normal Saline) 500 mls @ 500 mls/hr IV .BOLUS ONE Stop: 11/04/21 16:41 Last Admin: 11/04/21 15:55 Dose: 500 mls/hr Documented by: Ibuprofen (Ibuprofen 600 Mg Tab) 600 mg PO ONETIME ONE Stop: 11/03/21 00:10 Last Admin: 11/03/21 00:24 Dose: 600 mg Documented by: Ibuprofen (Ibuprofen 600 Mg Tab) 600 mg PO ONETIME ONE Stop: 11/03/21 23:03 Last Admin: 11/03/21 23:43 Dose: 600 mg Documented by: Isosorbide Mononitrate (Isosorbide Mononitrate 30 Mg Tab.Er) 30 mg PO ONETIME ONE Stop: 11/04/21 23:50 Last Admin: 11/05/21 00:06 Dose: 30 mg Documented by: Methylprednisolone Sodium Succinate (Methylprednisolone Sodium Succinate 125 Mg/2 Ml Sdv) 125 mg IVPUSH ONETIME PRN PRN Reason: ALLERGIC RXN Stop: 11/02/21 20:00 Morphine Sulfate (Morphine 10 Mg/Ml Syringe) Confirm Administered Dose 10 mg .ROUTE .STK-MED ONE Stop: 11/05/21 01:40 Last Admin: 11/05/21 01:51 Dose: Not Given Documented by: Potassium Chloride (Potassium Chloride 20 Meq Tab.Er) 40 meq PO ONETIME ONE Stop: 11/04/21 13:16 Last Admin: 12/19/21 13:41 Dose: 40 meq Documented by: Sodium Chloride (Sodium Chloride 0.9% 150 Ml Bag) 500 ml IV BOLUS ONE Stop: 11/03/21 23:05 - Exam Quality Assessment: Reports: Supplemental Oxygen, DVT Prophylaxis General: Reports: Alert, Oriented, Moderate Distress Lungs: Reports: Decreased Breath Sounds, Crackles. Denies: Rales, Rhonchi, Wheezing Cardiovascular: Reports: Regular Rate, Regular Rhythm, Murmurs GI/Abdominal Exam: Soft, Non-Tender, No Organomegaly, No Distention Extremities: Non-Tender, No Pedal Edema
[2021-11-05] MEDS: Finasteride 5 MG Tab PO SCH (17:13)
== END 2021-11-05 17:29 | DRG 177 ==
LOC: JP.ED 04:59 → JP.2SS 13:38 → OBSVTOIN 11-04 13:07 → JP.ICU 11-04 16:41
PROVIDERS: ADMIT Internal Medicine; ATTEND Hospitalist
PROC: 8E0ZXY6 Isolation (ICD-10-PCS; principal; 2021-11-04)
PROC: XW033G6 Introduction of REGN-COV2 Monoclonal Antibody into Peripheral Vein, Percutaneous Approach, New Technology Group 6 (ICD-10-PCS; 2021-11-04)
PROC: 3E0DX3Z Introduction of Anti-inflammatory into Mouth and Pharynx, External Approach (ICD-10-PCS; 2021-11-05)
DX: U07.1 COVID-19 (principal); R53.1 Weakness; J96.01 Acute respiratory failure with hypoxia; I21.4 Non-ST elevation (NSTEMI) myocardial infarction; M79.10 Myalgia, unspecified site; N18.32 Chronic kidney disease, stage 3b; J30.9 Allergic rhinitis, unspecified; I25.10 Atherosclerotic heart disease of native coronary artery without angina pectoris; E78.00 Pure hypercholesterolemia, unspecified; I71.4 Abdominal aortic aneurysm, without rupture; J44.9 Chronic obstructive pulmonary disease, unspecified; K21.9 Gastro-esophageal reflux disease without esophagitis; N42.9 Disorder of prostate, unspecified; M19.90 Unspecified osteoarthritis, unspecified site; G62.9 Polyneuropathy, unspecified; G71.00 Muscular dystrophy, unspecified; E55.9 Vitamin D deficiency, unspecified; D64.9 Anemia, unspecified; F17.210 Nicotine dependence, cigarettes, uncomplicated; Z99.3 Dependence on wheelchair; Z79.82 Long term (current) use of aspirin; Z79.02 Long term (current) use of antithrombotics/antiplatelets; Z79.899 Other long term (current) drug therapy; Z88.2 Allergy status to sulfonamides; Z88.8 Allergy status to other drugs, medicaments and biological substances; I25.2 Old myocardial infarction; Z87.440 Personal history of urinary (tract) infections; Z86.19 Personal history of other infectious and parasitic diseases; Z95.5 Presence of coronary angioplasty implant and graft; I12.9 Hypertensive chronic kidney disease with stage 1 through stage 4 chronic kidney disease, or unspecified chronic kidney disease
CPT/HCPCS: 0241U; 36415; 71045; 80048; 81001; 83605; 84484; 85025; 85027; 85379; 85730; 86140; 87086; 93005; 99285; 96376; A9270-GY; G0378; J1100; J1644; J1650; J1940; J2060; J2270; J7030; J7040; Q0243